=== PATIENT | female | born 1995 | race Caucasian/White ===

== ENCOUNTER 2016-04-08 18:47 | Outpatient (CLI) | payer OTHER ==
[2016-04-08 19:23] LABS: APPEARANCE,URINE CLEAR; BILIRUBIN,URINE NEGATIVE (NEGATIVE); GLUCOSE, URINE NEGATIVE (NEGATIVE); KETONES,URINE TRACE mg/dL (NEGATIVE); LEUKOCYTE ESTERASE,URINE NEGATIVE (NEGATIVE); NITRITE,URINE NEGATIVE (NEGATIVE); PROTEIN,URINE NEGATIVE (NEGATIVE); URINE SPECIFIC GRAVITY 1.021; UROBILINOGEN,URINE NEGATIVE mg/dL (<2.0)
[2016-04-08 19:43] LABS: URINE BARBITURATES SCREEN NEGATIVE; URINE METHADONE SCREEN NEGATIVE; URINE PHENCYCLIDINE SCREEN NEGATIVE
[2016-04-08 20:00] LABS: AMNISURE (ROM) NEGATIVE (NEGATIVE)
--- NOTE | 2016-04-08 20:00 | L&D Flow Sheet ---
LD Flowsheet Datetime Report Generated by CPN: 04/08/2016 20:00 Datetime: 04/08/2016 19:41 Membrane Comments: Fern collected and sent (Crystal [place], RN) Datetime: 04/08/2016 19:26 Assessment A Monitor Mode: External US (Crystal [place], RN) FHR Baseline Rate : 140 (Crystal Maura, RN) Variability: Moderate 6-25 bpm (Crystal Maura, RN) Accelerations: 15X15 (Crystal [place], RN) Decelerations: None (Crystal Maura, RN) Datetime: 04/08/2016 19:17 Vital Signs NBP Sys/Emmie/Mean (mmHg): 121 (QS system process) : 84 (QS system process) : 97 (QS system process) Pulse: 137 (QS system process) Communication LaborFlag: Antepartum (QS system process) Datetime: 04/08/2016 19:01 Pain Pain Scale: 4 (Crystal Maura, RN) Pain Presence: Intermittent (Crystal [place], RN) Pain Type: Ache (Crystal Maura, RN) Pain Location: Other (Annotations: Pt reports everywhere) (Crystal Maura, RN) Pain Goal: 2 (Crystal [place], RN) Pain Relief Measures: Comfort Measures (Crystal Maura, RN) Pain Coping: Talking Through Contractions (Crystal Maura, RN) Vaginal Exam Membrane Status: Pt reports that she took a bath 2 days ago and something smelly ran out of her like water. (Crystal Maura, RN) Vaginal Bleeding: Scant (Annotations: Pt reports bleeding yesterday) (Crystal Maura, RN) Maternal Assessment Level of Consciousness: Fully Conscious (Crystal Maura, RN) DTR's/Clonus: DTRs 2+; No Clonus (Crystal [place], RN) Headache: Generalized (Crystal Maura, RN) Breath Sounds, Left: Clear and Equal (Crystal Maura, RN) Breath Sounds, Right: Clear and Equal (Crystal Maura, RN) Nausea/Vomiting: Present (Crystal Maura, RN) RUQ Epigastric Pain: Denies (Crystal [place], RN) Teaching Instructional Method: Verbal; Patient Instructed; Family/Support Person Instructed; Verbalized Understanding (Shaniqua Lorenzo RN) Plan of Care: Plan of Care Discussed (Shaniqua Lorenzo RN) Unit Routine: [place] to Room; Call Vaz; Bed (Shaniqua Lorenzo RN) Communication LaborFlag: Antepartum (QS system process)
[2016-04-08] MEDS ORDERED: HYDROXYZINE PAMOATE 50 MG CAPSULE ONE (20:42)
[2016-04-08] MEDS ORDERED: HYDROXYZINE PAMOATE 50 MG CAPSULE PO ONE (20:44)
--- NOTE | 2016-04-09 04:45 | L&D General Admission ---
General Admit Datetime Report Generated by CPN: 04/09/2016 04:45 INFORMATION Para: 1 (04/08/2016 20:51:Crystal Maura, RN) Baby, Number in Womb: 1 (04/08/2016 20:51:Crystal [place], RN) CARE Height (in): 64 (04/08/2016 19:45:QS system process) DEMOGRAPHICS Marital Status: (04/08/2016 18:47:QS system process)
--- NOTE | 2016-04-09 04:45 | L&D Flow Sheet ---
LD Flowsheet Datetime Report Generated by CPN: 04/09/2016 04:45 Datetime: 04/08/2016 20:37 Medications Antiemetics/Antacids: Vistaril (mg) @ 50 (Crystal Maura, RN) Datetime: 04/08/2016 20:34 Vital Signs Stage of : OB Triage (Shaniqua Lorenzo RN) Strip Reviewed by: Gallo Lorenzo RN (Shaniqua Lorenzo RN) Communication Communication: RN Reviewed Strip; Provider Orders Received (Shaniqua Lorenzo RN) Provider Notified (Name): Nehemias (Shaniqua Lorenzo RN) Notification Reason: Status Update; Status; Labor Status; Membrane Status; Uterine Activity; Pain; Maternal Vital Sign Change (Shaniqua Lorenzo RN) Communication Comments: Provider orders received for 50 mg PO vistaril and PO hydration, Pt able to DC home and keep office apt. (Shaniqua Lorenzo RN) Datetime: 04/08/2016 20:19 Communication Comments: Encouraged pt to increase fluids (Crystal Maura, RN) Datetime: 04/08/2016 20:17 Fern: Negative (Crystal Maura, RN) Datetime: 04/08/2016 20:15 Communication Comments: Discussed with pt that her due date is in our system as 05/22/2016 and she is 33.5 not 36 weeks as she reports. pt verbalized understanding. (Crystal Stanfield, RN) Datetime: 04/08/2016 20:11 NBP Sys/Emmie/Mean (mmHg): 111 (QS system process) : 69 (QS system process) : 85 (QS system process) Pulse: 108 (QS system process) LaborFlag: OB Triage (QS system process) Datetime: 04/08/2016 20:05 Uterine Activity Monitor Mode: External; Palpation (Crystal [place], RN) Frequency (min): Irritability (Crystal Maura, RN) Resting Tone (Palpate): Relaxed (Crystal Maura, RN) Assessment A Monitor Mode: External US (Crystal [place], RN) FHR Baseline Rate : 130 (Crystal Maura, RN) Variability: Moderate 6-25 bpm (Crystal [place], RN) Accelerations: 15X15 (Crystal Maura, RN) Decelerations: None (Crystal Maura, RN) Patient Care I/O Interventions: Clear Liquids Given (Crystal Maura, RN) Datetime: 04/08/2016 19:41 Membrane Comments: Fern collected and sent (Crystal Stanfield, RN) Datetime: 04/08/2016 19:26 Assessment A Monitor Mode: External US (Crystal [place], RN) FHR Baseline Rate : 140 (Crystal Maura, RN) Variability: Moderate 6-25 bpm (Crystal Stanfield, RN) Accelerations: 15X15 (Crystal Stanfield, RN) Decelerations: None (Crystal Maura, RN) Datetime: 04/08/2016 19:17 Vital Signs Stage of : OB Triage (Crystal Maura, RN) NBP Sys/Emmie/Mean (mmHg): 121 (QS system process) : 84 (QS system process) : 97 (QS system process) Pulse: 137 (QS system process) LaborFlag: OB Triage (QS system process) Datetime: 04/08/2016 19:01 Pain Pain Scale: 4 (Crystal Stanfield, RN) Pain Presence: Intermittent (Crystal Maura, RN) Pain Type: Ache (Crystal Maura, RN) Pain Location: Other (Annotations: Pt reports everywhere) (Crystal Maura, RN) Pain Goal: 2 (Crystal Stanfield, RN) Pain Relief Measures: Comfort Measures (Crystal Maura, RN) Pain Coping: Talking Through Contractions (Crystal Maura, RN) Vaginal Exam Membrane Status: Pt reports that she took a bath 2 days ago and something smelly ran out of her like water. (Crystal Stanfield, RN) Vaginal Bleeding: Scant (Annotations: Pt reports bleeding yesterday) (Crystal Maura, RN) Maternal Assessment Level of Consciousness: Fully Conscious (Crystal [place], RN) DTR's/Clonus: DTRs 2+; No Clonus (Crystal Maura, RN) Headache: Generalized (Crystal Maura, RN) Breath Sounds, Left: Clear and Equal (Crystal Stanfield, RN) Breath Sounds, Right: Clear and Equal (Crystal Maura, RN) Nausea/Vomiting: Present (Crystal Maura, RN) RUQ Epigastric Pain: Denies (Crystal Stanfield, RN) Teaching Instructional Method: Verbal; Patient Instructed; Family/Support Person Instructed; Verbalized Understanding (Shaniqua Lorenzo RN) Plan of Care: Plan of Care Discussed (Shaniqua Lorenzo RN) Unit Routine: [place] to Room; Call Vaz; Bed (Shaniqua Lorenzo RN) LaborFlag: Antepartum (QS system process)
--- NOTE | 2016-04-09 04:45 | Antepartum Discharge Summary ---
Antepartum DC Datetime Report Generated by CPN: 04/09/2016 04:45 DIET/ACTIVITY/RESTRICTIONS Diet: Regular (04/08/2016 20:51:Crystal Maura, RN) Activity: Normal Activity (04/08/2016 20:51:Crystal Maura, RN) TEACHING/INSTRUCTIONS/REFERRALS Instructions Given To: Toño García (04/08/2016 20:51:Crystal Maura, RN) Instructions Understood: Patient Verbalized Understanding; Support Person Verbalized Understanding (04/08/2016 20:51:Shaniqua Lorenzo RN) Referrals: None (04/08/2016 20:51:Shaniqua Lorenzo RN) Educational Materials- Other: Dehydration (04/08/2016 20:51:Shaniqua Lorenzo RN) DISCHARGE INFORMATION Discharged AMA: No (04/08/2016 20:51:Shaniqua Lorenzo RN) Discharge Date/Time: 04/08/2016 20:47 (04/08/2016 20:51:Shaniqua Lorenzo RN) Discharged To: Home (04/08/2016 20:51:Shaniqua Lorenzo RN) Discharge Provider Name: Nehemias (04/08/2016 20:51:Shaniqua Lorenzo RN) Accompanied By: Family (04/08/2016 20:51:Shaniqua Lorenzo RN) Discharge Method: Ambulatory (04/08/2016 20:51:Shaniqua Lorenzo RN) Condition: Stable (04/08/2016 20:51:Shaniqua Lorenzo RN) FOLLOW UP INFORMATION Follow Up With: [facility] (04/08/2016 20:51:Shaniqua Lorenzo RN) Follow Up On: As Scheduled (04/08/2016 20:51:Shaniqua Lorenzo RN)
--- NOTE | 2016-04-09 04:45 | L&D Discharge Summary ---
OB Discharge Summary Datetime Report Generated by CPN: 04/09/2016 04:45 DISCHARGE DIAGNOSIS Diagnosis/Symptoms: False Labor Diagnoses/Symptoms Other: Pt given instructions to hydrate and rest, follow up with office as scheduled. Treatment/Procedures Other: 50 mg vistaril PO Gestation: 33.5 Number of Babies in Womb: 1 Parity: 1 DIET/ACTIVITY/RESTRICTIONS Diet: Regular Activity: Normal Activity TEACHING/INSTRUCTIONS/REFERRALS Instructions Given To: Toño García Instructions Understood: Patient Verbalized Understanding; Support Person Verbalized Understanding Referrals: None Educational Materials- Other: Dehydration DISCHARGE INFORMATION Discharged AMA: No Discharge Date/Time: 04/08/2016 20:47 Discharged To: Home Discharge Provider Name: Nehemias Accompanied By: Family Discharge Method: Ambulatory Condition: Stable FOLLOW UP INFORMATION Follow Up With: [facility] Follow Up On: As Scheduled Follow Up Phone Number: Zlio - Comments: Pt came in c/o bloody show, dizziness and increase HR. Pt placed on monitor, baby reactive, x1 contraction seen. UA obtained, negative. SVE performed by Dr Hanna at b/s -/. Pt d/c to home in stable condition, instructed to take off work the rest of the week. D/c instructions given on preeclampsia and labor. Pt/mother verbalized understanding and demonstrated understanding.
--- NOTE | 2016-04-09 04:45 | L&D Current Admission ---
Current Admit Datetime Report Generated by CPN: 04/09/2016 04:45 ADMISSION INFORMATION Chief Complaint: Other (Annotations: General complaints of headache, dizziness, contractions ) (04/08/2016 19:01:Shaniqua Lorenzo RN)
--- NOTE | 2016-04-09 04:45 | L&D Admission Assessment ---
LD ADM ASMT Datetime Report Generated by CPN: 04/09/2016 04:45 PATIENT ASSESSMENT Assessment Type: Triage (04/08/2016 19:01:Crystal [place]ona, RN) WEIGHT Weight (lb): 191 (04/08/2016 19:45:QS system process) Weight (kg): 86.8 (04/08/2016 19:45:QS system process) BMI: 32.8 (04/08/2016 19:45:QS system process) PAIN Pain Scale: 4 (04/08/2016 19:01:Crystal [place]ona, RN) Pain Presence: Intermittent (04/08/2016 19:01:Crystal [place]ona, RN) Pain Type: Ache (04/08/2016 19:01:Crystal Maura, RN) Pain Location: Other (Annotations: Pt reports everywhere) (04/08/2016 19:01:Crystal [place], RN) Pain Goal: 2 (04/08/2016 19:01:Crystal [place], RN) Pain Related to Contraction: Unsure (04/08/2016 19:01:Crystal Verona, RN) CONTRACTIONS Frequency (min): Irritability (04/08/2016 20:05:Crystal Maura, RN) Resting Tone [place]: Relaxed (04/08/2016 20:05:Crystal Maura, RN) VAGINAL EXAM Membranes Status: Pt reports that she took a bath 2 days ago and something smelly ran out of her like water. (04/08/2016 19:01:Crystal Maura, RN) Fern: Negative (04/08/2016 20:17:Crystal Verona, RN) NEURO Level of Consciousness: Fully Conscious (04/08/2016 19:01:Crystal [place]ona, RN) DTR's/Clonus: DTRs 2+; No Clonus (04/08/2016 19:01:Crystal [place]ona, RN) Headache: Generalized (04/08/2016 19:01:Crystal [place]ona, RN) Dizziness: No (04/08/2016 19:01:Crystal [place]ona, RN) Blurred Vision: No (04/08/2016 19:01:Crystal Maura, RN) Extremity Numbness/Tingling : None (04/08/2016 19:01:Crystal Verona, RN) Extremity Movement: Full Range of Motion (04/08/2016 19:01:Crystal Verona, RN) CARDIOVASCULAR Heart Rhythm: Regular (04/08/2016 19:01:Shaniqua Lorenzo RN) Nailbeds: [place] Switch (04/08/2016 19:01:Shnaiqua Lorenzo RN) Capillary Refill: Less than 3 Seconds (04/08/2016 19:01:Shaniqua Lorenzo RN) Lower Extremities Edema: None (04/08/2016 19:01:Shaniqua Lorenzo RN) Lower Extremities Edema Degree: None (04/08/2016 19:01:Shaniqua Lorenzo RN) Upper Extremities Edema: None (04/08/2016 19:01:Shaniqua Lorenzo RN) Upper Extremities Edema Degree: None (04/08/2016 19:01:Shaniqua Lorenzo RN) Facial Edema: None (04/08/2016 19:01:Shaniqua Lorenzo RN) Josemanuel's Sign Left Leg: Negative (04/08/2016 19:01:Shaniqua Lorenzo RN) Josemanuel's Sign Right Leg: Negative (04/08/2016 19:01:Shaniqua Lorenzo RN) DVT RISK ASSESSMENT DVT Risk Age: Age less than 41 years (04/08/2016 19:01:Shaniqua Lorenzo RN) DVT Risk BMI: BMI<31 (04/08/2016 19:01:Shaniqua Lorenzo RN) DVT Risk Surgery: Minor Surgery Planned (04/08/2016 19:01:Shaniqua Lorenzo RN) DVT Risk Other: None Applicable (04/08/2016 19:01:Shaniqua Lorenzo RN) DVT Risk Total: 1 (04/08/2016 19:01:QS system process) DVT Risk Text: Low Risk (<10%) No specific measures, early ambulation (04/08/2016 19:01:QS system process) RESPIRATORY Respiratory Effort: Unlabored; Regular Rhythm; Equal Expansion (04/08/2016 19:01:Shaniqua Lorenzo RN) Breath Sounds, Left: Clear and Equal (04/08/2016 19:01:Shaniqua Lorenzo RN) Breath Sounds, Right: Clear and Equal (04/08/2016 19:01:Shaniqua Ellisergjason RN) Cough Productivity: None (04/08/2016 19:01:Shaniqua Ellisergjason RN) GASTROINTESTINAL Nausea/Vomiting: Present (04/08/2016 19:01:Shaniqua Lorenzo RN) Bowel Sounds: Normoactive (04/08/2016 19:01:Shaniqua Lorenzo RN) RUQ Epigastric Pain: Denies (04/08/2016 19:01:Shaniqua Lorenzo RN) Response to Antacids: Pain Relieved (04/08/2016 19:01:Shaniqua Lorenzo RN) Bowel Patterns: Soft, Formed Stool (04/08/2016 19:01:Shaniqua Lorenzo RN) Hemorrhoids: None (04/08/2016 19:01:Shaniqua Lorenzo RN) Diet Type: Regular diet (04/08/2016 19:01:Shaniqua Lorenzo RN) Last Meal: 04/08/2016 16:30 (04/08/2016 19:01:Shaniqua Lorenzo RN) GENITOURINARY Bladder: Nondistended (04/08/2016 19:01:Shaniqua Lorenzo RN) Frequency of Urination: No (04/08/2016 19:01:Shaniqua Lroenzo RN) Urination Burning: No (04/08/2016 19:01:Shaniqua Lorenzo RN) CVA Tenderness: No (04/08/2016 19:01:Shaniqua Lorenzo RN) Vaginal Discharge Amount: None (04/08/2016 19:01:Shaniqua Lorenzo RN) Vaginal Discharge Color: N/A (04/08/2016 19:01:Shaniqua Lorenzo RN) Vaginal Discharge Character: None (04/08/2016 19:01:Shaniqua Lorenzo RN) INTEGUMENTARY Skin Color: Normal for Race (04/08/2016 19:01:Shaniqua Lorenzo RN) Skin Temperature: Warm (04/08/2016 19:01:Shaniqua Lorenzo RN) Skin Moisture: Dry (04/08/2016 19:01:Shaniqua Lorenzo RN) Body Piercings/Tattoos: Nose ring, tattoos (04/08/2016 19:01:Shaniqua Lorenzo RN) NOEMÍ SKIN ASSESSMENT Noemí Scale Sensory Perception: No Impairment- Responds to verbal commands. Has no sensory deficit which would limit ability to feel or voice pain or discomfort (04/08/2016 19:01:Shaniqua Lorenzo RN) Noemí Scale Moisture: Rarely Moist- Skin is usually dry. Linen only requires changing at routine intervals (04/08/2016 19:01:Shaniqua Lorenzo RN) Noemí Scale Activity: Walks Frequently- Walks outside the room at least twice a day and inside room at least every 2 hours during the day. (04/08/2016 19:01:Shaniqua Lorenzo RN) Noemí Scale Mobility: No Limitations- Makes major and frequent changes in position without assistance (04/08/2016 19:01:Shaniqua Lorenzo RN) Noemí Scale Nutrition: Excellent- Eats most of every meal. Never refuses a meal. Usually eats a total of 4 or more servings of meat and dairy products. Occasionally eats between meals. Does not require supplementation (04/08/2016 19:01:Shaniqua Lorenzo RN) Noemí Scale Friction and Shear: No Apparent Problem- Moves in bed and in chair independently and has sufficient muscle strength to lift up completely during move. Maintains good position in bed or chair at all times (04/08/2016 19:01:Shaniqua Lorenzo RN) Noemí Scale Total: 23 (04/08/2016 19:01:QS system process) Noemí Scale Risk: No Risk of Pressure Ulcer Noted at this Time (04/08/2016 19:01:QS system process) SUPPORT Family Support: Significant Other supportive, at bedside frequently; Family supportive (04/08/2016 19:01:Shaniqua Lorenzo RN) Emotional State: Anxious (04/08/2016 19:01:Shaniqua Lorenzo RN) SAFETY Call Vaz Within Reach: Yes (04/08/2016 19:01:Shaniqua Lorenzo RN) Side Rails Up: Yes (04/08/2016 19:01:Shaniqua Lorenzo RN) Bed Wheels Locked: Yes (04/08/2016 19:01:Shaniqua Lorenzo RN) Arm Bands Present: Yes (04/08/2016 19:01:Shaniqua Lorenzo RN) FALL SCREEN Fall Risk History of Falling: (0) No (04/08/2016 19:01:Shaniqua Lorenzo RN) Fall Risk Secondary Diagnosis: (0) No (04/08/2016 19:01:Shaniqua Lorenzo RN) Fall Risk Ambulatory Aid: (0) None/Bedrest/Wheelchair/Nurse Assist (04/08/2016 19:01:Shaniqua Lorenzo RN) Fall Risk IV Therapy: (0) No (04/08/2016 19:01:Shaniqua Lorenzo RN) Fall Risk Gait: (0) Normal/Bedrest/Immobile (04/08/2016 19:01:Shaniqua Lorenzo RN) Fall Risk Mental Status: (0) Oriented to Own Ability (04/08/2016 19:01:Shaniqua Lorenzo RN) Fall Risk Score: 0 (04/08/2016 19:01:QS system process) Fall Risk Score Definition: No Risk: No action required (04/08/2016 19:01:QS system process) RECENT TRAVEL/INFECTIOUS DISEASE Recent Exp Communicable Disease: No (04/08/2016 19:01:Shaniqua Lorenzo RN) Cough or Fever: No (04/08/2016 19:01:Shaniqua Lorenzo RN) Foreign Travel Past 10 Days: No (04/08/2016 19:01:Shaniqua Lorenzo RN) Open Wounds or Sores: No (04/08/2016 19:01:Shaniqua Lorenzo RN) Prior Antibiotic Resistance Tx: No (04/08/2016 19:01:Shaniqua Lorenzo RN) Cultures Obtained: Not Applicable (04/08/2016 19:01:Shaniqua Lorenzo RN) Isolation Initiated: No (04/08/2016 19:01:Shaniqua Lorenzo RN) Pt/Family Education: Not Applicable (04/08/2016 19:01:Shaniqua Lorenzo RN) BABY A FHR Baseline Rate (bpm) Baby A: 130 (04/08/2016 20:05:Shaniqua Lorenzo RN) FHR Baseline Rate (bpm) Baby A: 140 (04/08/2016 19:26:Shaniqua Lorenzo RN) Variability Baby A: Moderate 6-25 bpm (04/08/2016 20:05:Shaniqua Lorenzo RN) Variability Baby A: Moderate 6-25 bpm (04/08/2016 19:26:Shaniqua Lorenzo RN) Accelerations Baby A: 15X15 (04/08/2016 20:05:Shaniqua Lorenzo RN) Accelerations Baby A: 15X15 (04/08/2016 19:26:Shaniqua Lorenzo RN) Decelerations Baby A: None (04/08/2016 20:05:Shaniqua Lorenzo RN) Decelerations Baby A: None (04/08/2016 19:26:Shaniqua Lorenzo RN)
== END 2016-04-08 20:47 | disposition home or self-care (01) ==
LOC: LC 18:47
PROVIDERS: ATTEND Obstetrics & Gynecology
PROC: 4A1HXCZ Monitoring of Products of Conception, Cardiac Rate, External Approach (ICD-10-PCS; principal; 2016-04-08)
DX: O47.03 False labor before 37 completed weeks of gestation, third trimester (principal); Z3A.33 33 weeks gestation of pregnancy
CPT/HCPCS: 59025; 84112; 81005; Q0114; G0479; 80307

== ENCOUNTER 2016-04-16 13:53 | Outpatient (CLI) | payer OTHER ==
--- NOTE | 2016-04-16 14:33 | L&D Progress Notes ---
PROGRESS NOTES Datetime Report Generated by CPN: 04/16/2016 14:33 PROGRESS NOTE Vital Signs : Reviewed; Within Normal Limits Comment: 20 yo sent from office for PIH workup previous - preeclampsia pt taking propanalol unsure of dosage for SVT with negative cardiac workups taking aspirin 81 mg po qd lungs ctab maternal tachycardia- 140s random blood sugar - 100 start ivf - D5LR 500 cc bolus PIH labs now push po hydration and meal stat EKG at bedside FETUS A FHR - Baseline: 155 Monitoring: External US : 34.6 SIGNATURE SIGNATURE: [id number] SIGNATURE: [id number] Assignment: Terrie Hanna MD Signature: with User ID: Mikeyel : with User ID: [email or web address]
[2016-04-16 14:42] LABS: APPEARANCE,URINE CLOUDY; BILIRUBIN,URINE NEGATIVE (NEGATIVE); GLUCOSE, URINE 50 mg/dL (NEGATIVE); KETONES,URINE TRACE mg/dL (NEGATIVE); LEUKOCYTE ESTERASE,URINE MODERATE (NEGATIVE); NITRITE,URINE NEGATIVE (NEGATIVE); PROTEIN,URINE NEGATIVE (NEGATIVE); URINE SPECIFIC GRAVITY 1.018; UROBILINOGEN,URINE NEGATIVE mg/dL (<2.0)
--- NOTE | 2016-04-16 15:00 | Non Stress Test Report ---
Non Stress Test Datetime Report Generated by CPN: 04/16/2016 14:59 DEMOGRAPHIC EGA NST: 34.6 EGA NST: 34.6 INDICATION Indication for Study: Ordered by Provider Indication for Study: Ordered by Provider Indication for Study (NST) Other: pih work up MONITORING Monitor Explained: Monitor Explained; Test Explained; Patient Verbalized Understanding Monitor Explained: Monitor Explained; Test Explained; Patient Verbalized Understanding Time on Monitor: 04/16/2016 14:30 Time on Monitor: 04/16/2016 14:13 Time off Monitor: 04/16/2016 14:56 NST Duration: 26 NST INTERVENTIONS NST Interventions: IV Fluids NST Interventions: PO Hydration; Reposition Patient Physician Notified NST: A Emmel CNM BABY A Movement : Present Movement : Present Contraction Frequency : irregular FHR Baseline : 150 Accelerations : 15X15 Accelerations : 15X15 Decelerations : None Decelerations : None Variability : Moderate 6-25bpm Variability : Moderate 6-25bpm NST Review: Meets Criteria for Reactive NST NST Review: Meets Criteria for Reactive NST NST Review and Verified By : MICHAEL Topete Results: Reactive NST Results: Reactive NST REPORT Report Trigger: Send Report
[2016-04-16 15:04] LABS: ABSOLUTE EOSINOPHILS # (AUTO) 0.2 10^3/uL (0.0-0.6); ABSOLUTE LYMPHOCYTES (AUTO) 1.7 10^3/uL (0.5-4.7); ABSOLUTE MONOCYTES (AUTO) 1.4 10^3/uL (0.1-1.4); ABSOLUTE NEUT (AUTO) 11.4 10^3/uL (1.7-8.2); BASOPHILS % (AUTO) 0.1 % (0-2); EOSINOPHILS % (AUTO) 1.1 % (0-6); HEMATOCRIT 31.3 % (36.0-47.0); HEMOGLOBIN 10.5 g/dL (12.0-15.5); HGB HCT DIFFERENCE 0.2; LYMPHOCYTES % (AUTO) 11.3 % (13-45); MEAN CORPUSCULAR HGB CONC 33.5 g/dL (32.0-36.0); MEAN CORPUSCULAR VOLUME 81 fl (80-97); MONOCYTES % (AUTO) 9.3 % (3-13); RED BLOOD COUNT 3.88 10^6/uL (3.72-5.28); SEGMENTED NEUTROPHILS % (AUTO) 78.2 % (42-78); WHITE BLOOD COUNT 14.6 10^3/uL (4.0-10.5)
[2016-04-16 15:20] LABS: ALANINE AMINOTRANSFERASE 12 U/L (9-52); ALBUMIN 3.4 g/dL (3.5-5.0); ALKALINE PHOSPHATASE 139 U/L (38-126); ANION GAP 11 (5-19); ASPARTATE AMINO TRANSFERASE 17 U/L (14-36); BILIRUBIN,TOTAL 0.4 mg/dL (0.2-1.3); BLOOD UREA NITROGEN 6 mg/dL (7-20); CALCIUM 9.4 mg/dL (8.4-10.2); CARBON DIOXIDE 20 mmol/L (22-30); CHLORIDE 107 mmol/L (98-107); CREATININE RESULT 0.42 mg/dL (0.52-1.25); GLUCOSE 85 mg/dL (75-110); LDH 371 U/L (313-618); POTASSIUM 4.2 mmol/L (3.6-5.0); SODIUM 137.5 mmol/L (137-145); TOTAL PROTEIN 6.1 g/dL (6.3-8.2); URIC ACID 3.8 mg/dL (2.5-6.2)
[2016-04-16 15:21] LABS: URINE BARBITURATES SCREEN NEGATIVE; URINE METHADONE SCREEN NEGATIVE; URINE PHENCYCLIDINE SCREEN NEGATIVE
[2016-04-16] MEDS ORDERED: DEXTROSE 5%-LACTATED RINGERS 1,000 ML IV ONE (15:30)
--- NOTE | 2016-04-16 17:00 | EKG REPORT ---
SEVERITY:- BORDERLINE ECG - SINUS TACHYCARDIA BORDERLINE T ABNORMALITIES, INFERIOR LEADS : Confirmed by: Nohemi Amos MD 16-Apr-2016 16:58:53
--- NOTE | 2016-04-22 15:28 | Non Stress Test Report ---
Non Stress Test Datetime Report Generated by [facility]: 04/22/2016 15:28 Indication for Study: Ordered by Provider Indication for Study (NST) Other: pih work up Monitor Explained: Monitor Explained; Test Explained; Patient Verbalized Understanding Time on Monitor: 04/16/2016 14:13 NST Interventions: PO Hydration; Reposition Patient Movement : Present Accelerations : 15X15 Decelerations : None Variability : Moderate 6-25bpm NST Review: Meets Criteria for Reactive NST NST Results: Reactive
--- NOTE | 2016-04-22 15:29 | Non Stress Test Report ---
Non Stress Test Datetime Report Generated by N: 04/22/2016 15:29 Indication for Study: Ordered by Provider Monitor Explained: Monitor Explained; Test Explained; Patient Verbalized Understanding Time on Monitor: 04/16/2016 14:30 Time off Monitor: 04/16/2016 14:56 NST Interventions: IV Fluids Physician Notified NST: Joseph Villagomez CNM Movement : Present Contraction Frequency : irregular FHR Baseline : 150 Accelerations : 15X15 Decelerations : None Variability : Moderate 6-25bpm NST Review: Meets Criteria for Reactive NST NST Review and Verified By : Loreta Del Cid RN NST Results: Reactive Report Trigger: Send Report
--- NOTE | 2016-04-22 15:36 | L&D Current Admission ---
Current Admit Datetime Report Generated by Manish: 04/22/2016 15:36 Chief Complaint: Other (Annotations: Pt sent over from [facility] for Pre-E workup for blood work, NST, and serial BPs. ) (04/16/2016 14:15:Thor Lockett RN)
--- NOTE | 2016-04-22 15:36 | Antepartum Discharge Summary ---
Antepartum DC Datetime Report Generated by CPN: 04/22/2016 15:36 Diet: Regular (04/16/2016 15:40:Thor Lockett RN) Activity: Normal Activity (04/16/2016 15:40:Thor Lockett RN) Activity Restrictions: No Exercising; Minimize Stair Climbing (04/16/2016 15:40:Thor Lockett RN) Instructions Given To: Pt (04/16/2016 15:40:Thor Lockett RN) Instructions Understood: Patient Verbalized Understanding; Support Person Verbalized Understanding (04/16/2016 15:40:Thor Lockett RN) Referrals: None (04/16/2016 15:40:Thor Lockett RN) Educational Materials- Other: Kick Counts Pre-Eclampsia / Gest HTN NST (04/16/2016 15:40:Thor Lockett RN) Discharged AMA: No (04/16/2016 15:40:Thor Lockett RN) Discharge Date/Time: 04/16/2016 15:41 (04/16/2016 15:40:Thor Lockett RN) Discharged To: Home (04/16/2016 15:40:Thor Lockett RN) Discharge Provider Name: Dahlia (04/16/2016 15:40:Thor Lockett RN) Accompanied By: Family (04/16/2016 15:40:Thor Lockett RN) Discharge Method: Ambulatory (04/16/2016 15:40:Thor Lockett RN) Condition: Stable (04/16/2016 15:40:Thor Lockett RN) Follow Up With: [facility] (04/16/2016 15:40:Thor Lockett RN) Follow Up On: As Scheduled (04/16/2016 15:40:Thor Lockett RN) Follow Up Phone Number: Health Department - (04/16/2016 15:40:Thor Lockett RN) Comments: Pt agrees with discharge, no complaints, no distress noted. Denies pain at discharge, ambulates without family, family to drive pt home. Understands s/s to report, when to return to hospital for evaluation, to keep scheduled appointments. (04/16/2016 15:40:Thor Lockett RN) Contractions: Contractions or cramps become more frequent than 8 in one hour or 4 in 20 minutes; Regular painful contractions every 5 minutes or less for one hour. Time your contractions from the beginning of one to the beginning of the next (04/16/2016 15:40:Thor Lockett RN) Pressure: Pressure in your vagina or lower abdomen that may feel like the baby is pushing down (04/16/2016 15:40:Thor Lockett RN) Period Like Cramps: Period-like cramps or low dull backache that may come and go (04/16/2016 15:40:Thor Lockett RN) Cramps/Diarrhea: Abdominal cramps that may be accompanied by diarrhea (04/16/2016 15:40:Thor Lockett RN) Gush of Fluid/Blood: Gush of fluid or blood from your vagina (it is normal to have spotting after vaginal exam or intercourse) (04/16/2016 15:40:Thor Lockett RN) Vaginal Discharge: Change in the type or amount of vaginal discharge (04/16/2016 15:40:Thor Lockett RN) Decreased Movement: Your baby is not moving as much as usual- 4 movements in 1 hour after drinking and resting on side (04/16/2016 15:40:Thor Lockett RN) Temperature: Temperature greater than 100.0(F) orally (04/16/2016 15:40:Thor Lockett RN) Hypertension Signs/Symptoms: Severe headache which is not relieved 30 minutes after taking Tylenol(Acetaminophen); Blurry vision or spots before your eyes; Severe heartburn or pain on the upper right side of your abdomen that is not relieved by an antacid; Increased swelling in your face, hands or feet (04/16/2016 15:40:Thor Lockett RN) Urinary Output: Decreased urinary output or dark colored urine (04/16/2016 15:40:Thor Lockett RN) N/V Marlette/Crackers: Keep dry toast/crackers with you to [facility] on (04/16/2016 15:40:Thor Lockett RN) N/V Frequent Meals: Eat small frequent meals (04/16/2016 15:40:Thor Lockett RN) N/V Empty Stomach: Try to keep something in your stomach (don't let your stomach get empty) (04/16/2016 15:40:Thor Lockett RN) N/V Time Getting Up: Take your time getting up (04/16/2016 15:40:Thor Lockett RN) N/V Avoid Smells: Avoid smells that make you feel sick (04/16/2016 15:40:Thor Lockett RN) Travel Seatbelts: Wear seatbelts or safety/lap belts (04/16/2016 15:40:Thor Lockett RN) Travel Walk Frequently: Walk frequently, every 1-2 hours (04/16/2016 15:40:Thor Lockett RN) Travel Comfort Clothes: Wear clothing that does not constrict and comfortable shoes (04/16/2016 15:40:Thor Lockett RN) Travel Light Snack: Keep a light snack (e.g. dry crackers) with you at all times to prevent nausea (04/16/2016 15:40:Thor Lockett RN) Travel Hydration: Drink plenty of water, low sodium and noncaffeinated drinks (04/16/2016 15:40:Thor Lockett RN) Travel Medications: DO NOT take any medication that is not approved by your physician first (04/16/2016 15:40:Thor Lockett RN) Travel PN Records: Always keep a copy of your medical record with you just in case (04/16/2016 15:40:Thor Lockett RN) Edema Avoid Standing: Avoid standing for long periods, keep legs up when you can (04/16/2016 15:40:Thor Lockett RN) Edema Rest on Side: When resting, lie on your side (left is best) (04/16/2016 15:40:Thor Lockett RN) Edema Limit Sodium: Limit the amount of salty foods you eat (04/16/2016 15:40:Thor Lockett RN) Edema Support Hose: Try to wear support hose as much as possible (04/16/2016 15:40:Thor Lockett RN) Exercise Overheating: Avoid situations that would cause you to become overheated (04/16/2016 15:40:Thor Lockett RN) Exercise Weather: Exercise outdoors only if the weather is reasonable and not too hot (04/16/2016 15:40:Thor Lockett RN) Exercise Exertion: Do not over exert yourself when you exercise (04/16/2016 15:40:Thor Lockett RN) Exercise Hydration: Drink plenty of fluids, especially water (04/16/2016 15:40:Thor Lockett RN) Exercise Support: Wear good support hose, bra and shoes when exercising (04/16/2016 15:40:Thor Lockett RN) Varicose Veins Instructions: Do not stand for long periods of time (04/16/2016 15:40:Thor Lockett RN) Varicose Veins Elevate Sit: Try to keep your legs elevated when you are sitting (04/16/2016 15:40:Thor Lockett RN) Varicose Veins Elevate Lying: When lying down, keep your legs elevated (04/16/2016 15:40:Thor Lockett RN) Varicise Veins Non Binding: When wearing stockings or socks, make sure they are not too tight and bind your legs (04/16/2016 15:40:Thor Lockett RN) Varicose Veins Support: Wear support hose/stockings at all times (04/16/2016 15:40:Thor Lockett RN) Varicose Veins Periodic Move: If you have a job where you sit a lot, get up periodically and walk around (04/16/2016 15:40:Thor Lockett RN)
--- NOTE | 2016-04-22 15:37 | L&D Flow Sheet ---
LD Flowsheet Datetime Report Generated by CPN: 04/22/2016 15:37 Datetime: 04/16/2016 15:32 Respirations: 20 (Thor Lockett RN) Monitor Mode: External; Palpation (Thor Lockett, RN) Frequency (min): x1 (Thor Lockett, RN) Pattern: Normal: <= 5 Contractions in 10 Minutes (Thor Lockett, RN) Resting Tone (Palpate): Relaxed (Thor Lockett, RN) Monitor Mode: External US (Thor Lockett, RN) FHR Baseline Rate : 150 (Thor Lockett, RN) FHR Baseline Changes: No Baseline Change (Thor Lockett, RN) Variability: Moderate 6-25 bpm (Thor Lockett, RN) Accelerations: 15X15 (Thor Lockett, RN) Decelerations: None (Thor Lockett, RN) Pain Scale: 1 (Thor Locektt RN) Pain Assessment Comments: Headache (Thor Lockett, RN) Level of Consciousness: Fully Conscious (Thor Lockett RN) DTR's/Clonus: DTRs 2+; No Clonus (Thor Lockett RN) Headache: Frontal (Thor Lockett RN) Breath Sounds, Left: Clear and Equal (Thor Lockett RN) Breath Sounds, Right: Clear and Equal (Thor Lockett RN) Nausea/Vomiting: Denies (Thor Lockett RN) RUQ Epigastric Pain: Denies (Thor Lockett RN) Patient Care Comments: removed from monitors for discharge (Thor Lockett RN) Patient Care Comments: IV discontinued. (Thor Lockett RN) Communication: RN at Bedside; RN Reviewed Strip (Thor Lockett RN) Communication Comments: Discharge orders obtained from A [facility] CN; provider reviewed all labs, vs, efm strip, EKG. (Thor Lockett RN) Datetime: 04/16/2016 15:26 NBP Sys/Emmie/Mean (mmHg): 109 (QS system process) : 71 (QS system process) : 85 (QS system process) Pulse: 107 (QS system process) Datetime: 04/16/2016 15:25 Pulse: 107 (QS system process) SpO2 (%): 98 (QS system process) Datetime: 04/16/2016 15:20 Pulse: 119 (QS system process) SpO2 (%): 97 (QS system process) Datetime: 04/16/2016 15:15 Pulse: 115 (QS system process) SpO2 (%): 97 (QS system process) Datetime: 04/16/2016 15:14 Pulse: 112 (QS system process) SpO2 (%): 88 (QS system process) Datetime: 04/16/2016 15:11 NBP Sys/Emmie/Mean (mmHg): 111 (QS system process) : 75 (QS system process) : 88 (QS system process) Pulse: 114 (QS system process) Datetime: 04/16/2016 15:10 Pulse: 113 (QS system process) SpO2 (%): 97 (QS system process) Datetime: 04/16/2016 15:05 Pulse: 121 (QS system process) SpO2 (%): 95 (QS system process) Datetime: 04/16/2016 15:00 Pulse: 119 (QS system process) SpO2 (%): 96 (QS system process) Datetime: 04/16/2016 14:56 NBP Sys/Emmie/Mean (mmHg): 115 (QS system process) : 74 (QS system process) : 88 (QS system process) Pulse: 121 (QS system process) Datetime: 04/16/2016 14:55 Pulse: 121 (QS system process) SpO2 (%): 96 (QS system process) Datetime: 04/16/2016 14:50 Pulse: 120 (QS system process) SpO2 (%): 96 (QS system process) Datetime: 04/16/2016 14:45 Pulse: 123 (QS system process) SpO2 (%): 96 (QS system process) Monitor Mode: External; Palpation (Thor Lockett RN) Resting Tone (Palpate): Relaxed (Thor Lockett RN) Contraction Comments: uterine irritability noted (Thor Lockett RN) Monitor Mode: External US (Thor Lockett RN) FHR Baseline Rate : 150 (Thor Lockett RN) Variability: Moderate 6-25 bpm (Thor Lockett RN) Accelerations: 15X15 (Thor Lockett RN) Decelerations: None (Thor Lockett RN) Communication: RN at Bedside; RN Reviewed Strip (Thor Cathryn, RN) Datetime: 04/16/2016 14:42 NBP Sys/Emmie/Mean (mmHg): 121 (QS system process) : 77 (QS system process) : 93 (QS system process) Pulse: 118 (QS system process) Datetime: 04/16/2016 14:40 Pulse: 117 (QS system process) SpO2 (%): 97 (QS system process) Datetime: 04/16/2016 14:35 Pulse: 128 (QS system process) SpO2 (%): 94 (QS system process) Datetime: 04/16/2016 14:31 IV/Blood Work: IV Started; IV Bolus Started; Labs Drawn with IV Start; Labs Drawn (Thor Lockett RN) Patient Care Comments: 18G L Forearm, good blood return, site wnl, pt tolerated well. (Thor Lockett, RN) Datetime: 04/16/2016 14:29 Communication Comments: Orders received for IV; D5LR x1L bolus now. (Thor Saxenat, RN) Datetime: 04/16/2016 14:26 NBP Sys/Emmie/Mean (mmHg): 120 (QS system process) : 76 (QS system process) : 91 (QS system process) Pulse: 139 (QS system process) Datetime: 04/16/2016 14:25 Pulse: 130 (QS system process) Pulse: 138 (QS system process) SpO2 (%): 96 (QS system process) SpO2 (%): 94 (QS system process) Datetime: 04/16/2016 14:24 Temperature (F): 98.7 (Thor Cathryn, RN) Datetime: 04/16/2016 14:21 Bedside Blood Glucose: 100 (Annotations: MD Notified) (QS system process) Patient Care Comments: Order for Random blood sugar; Blood Glucose 100. (Thor Molinaeet, RN) Datetime: 04/16/2016 14:20 Pulse: 141 (QS system process) SpO2 (%): 96 (QS system process) Patient Care Comments: Stat electromedical equipment technician at bedside. (Thor Lockett, RN) Datetime: 04/16/2016 14:18 Communication Comments: A Emmel CNM at bedside to assess pt (Thor Saxenat, RN) Datetime: 04/16/2016 14:15 Pulse: 147 (QS system process) SpO2 (%): 95 (QS system process) Pain Scale: 3 (Thor Lockett RN) Pain Presence: Constant (Thor Lockett RN) Pain Type: Ache (Thor Lockett RN) Pain Location: Head (Thor Lockett RN) Pain Relief Measures: Comfort Measures (Thor Lockett RN) Vaginal Bleeding: None (Thor Lockett RN) Level of Consciousness: Fully Conscious (Thor Lockett RN) DTR's/Clonus: DTRs 2+; No Clonus (Thor Lockett RN) Headache: Frontal (Thor Lockett RN) Breath Sounds, Left: Clear and Equal (Thor Lockett RN) Breath Sounds, Right: Clear and Equal (Thor Lockett RN) Nausea/Vomiting: Hx of Nausea/Vomiting (Thor Lockett RN) RUQ Epigastric Pain: Denies (Thor Lockett RN) Patient Position/Activity: Left Lateral (Thor Lockett RN) Comfort Measures: Breathing/Relaxation (Thor Lockett RN) Instructional Method: Demo; Verbal; Patient Instructed; Family/Support Person Instructed; Verbalized Understanding (Thor Lockett RN) Plan of Care: Plan of Care Discussed; Gestational Hypertension/Preeclampsia/Eclampsia (Thor Lockett RN) Unit Routine: [place] to Room; Call Vaz; Bed; Visiting Policy; Waiting Areas; Security; Phone/Cell Phone Use; Unit Personnel; Handwashing; Flu/Illness Precautions; Monitoring; Safety/Fall Risk Prevention; Bathroom Privileges (Thor Lockett RN) Pain Management: Pain Scale/Goals; Comfort Measures (Thor Lockett RN) PTL/PROM: PTL Stimulating Activities; Hydration; Signs/Symptoms of Infection (Thor Lockett RN) Related: Common Discomforts of ; Maternal Physical Changes; Maternal Emotional Changes; Nutrition; Hydration; Activity and Rest (Thor Lockett RN) Datetime: 04/16/2016 14:14 NBP Sys/Emmie/Mean (mmHg): 112 (QS system process) : 72 (QS system process) : 86 (QS system process) Pulse: 144 (QS system process)
--- NOTE | 2016-04-22 15:37 | L&D General Admission ---
General Admit Datetime Report Generated by CPN: 04/22/2016 15:36 INFORMATION Patient Age: 20 (02/13/2016 19:05:QS system process) EDC: 05/22/2016 00:00 (02/13/2016 19:18:Ana Saravia RN) : 2 (02/13/2016 19:18:Shaniqua Lorenzo RN) Para: 1 (04/08/2016 20:51:Shaniqua Lorenzo RN) Para: 1 (02/13/2016 19:18:Shaniqua Lorenzo RN) Term: 1 (02/13/2016 19:18:Latisha Ho RN) : 1 (02/13/2016 19:18:Shaniqua Lorenzo RN) Spontaneous Abortions: 0 (02/13/2016 19:18:Latisha Ho RN) Induced Abortions: 0 (02/13/2016 19:18:Latisha Ho RN) Livin (02/13/2016 19:18:Latisha Ho RN) Cesareans: 0 (02/13/2016 19:18:Latisha Ho RN) VBACs: 0 (02/13/2016 19:18:Latisha Ho RN) Ectopic: 0 (02/13/2016 19:18:Latisha Ho RN) Multiple Births: 0 (02/13/2016 19:18:Latisha Ho RN) Baby, Number in Womb: 1 (04/08/2016 20:51:Shaniqua Lorenzo RN) Baby, Number in Womb: 1 (02/13/2016 20:38:Shaniqua Lorenzo RN) Baby, Number in Womb: 1 (02/13/2016 19:18:Latisha Ho RN) CARE Primary Occupational Therapy Technician: [facility] (02/13/2016 19:18:Shaniqua Lorenzo RN) Adequate Care: Yes (02/13/2016 19:18:Shaniqua Lorenzo RN) ALLERGIES Medication Allergy: Yes (02/13/2016 19:18:Shaniqua Lorenzo RN) Medication Allergies: alamide Eye drops make eyes swell shut (02/13/2016 19:18:Shaniqua Lorenzo RN) Latex Allergy: No Latex Allergies (02/13/2016 19:18:Shaniqua Lorenzo RN) Food Allergies: NA (02/13/2016 19:18:Shaniqua Lorenzo RN) Environmental Allergies: NA (02/13/2016 19:18:Shaniqua Lorenzo RN) COMMUNICATION Primary Language: Irish (02/13/2016 19:18:Shaniqua Lorenzo RN) Medical Tx Preferred Language: Irish (02/13/2016 19:18:Shaniqua Lorenzo RN) Communication Barrier(s): None (02/13/2016 19:18:Shaniqua Lorenzo RN) DEMOGRAPHICS Address: [address] [place] [id number] (02/13/2016 19:05:QS system process) Zipcode: [address] (02/13/2016 19:05:QS system process) Home (02/13/2016 19:05:QS system process) SSN: [id number] (02/13/2016 19:05:QS system process) Next of Kin Name: NEO GARCÍA (02/13/2016 19:05:QS system process) Next of Kin (04/16/2016 13:53:QS system process) Next of Kin (02/13/2016 19:05:QS system process) Next of Kin Relationship: SPO (02/13/2016 19:05:QS system process) Date of : 1995 (02/13/2016 19:05:QS system process) Marital Status: (04/08/2016 18:47:QS system process) Marital Status: Single (02/13/2016 19:05:QS system process) Sex: Female (02/13/2016 19:05:QS system process) Race: (02/13/2016 19:05:QS system process) Ethnicity: Non- or (02/13/2016 19:05:QS system process) Adventism: None (02/13/2016 19:05:QS system process) DRUG AND ALCOHOL USE Alcohol: No (02/13/2016 19:18:Shaniqua Lorenzo RN) Cigarettes: Current Some Day Smoker. [id number] (02/13/2016 19:18:Shaniqua Lorenzo RN) Marijuana: No (02/13/2016 19:18:Shaniqua Lorenzo RN) Cocaine: No (02/13/2016 19:18:Shaniqua Lorenzo RN) Other Illicit Drugs: No (02/13/2016 19:18:Shaniqua Lorenzo RN) VACCINE HISTORY Influenza Vaccine: Yes (02/13/2016 19:18:Shaniqua oLrenzo RN) Influenza Date: 01/31/2016 (02/13/2016 19:18:Latisha Ho RN) Pneumococcal Vaccine: No (02/13/2016 19:18:Shaniqua Lorenzo RN) Tetanus Vaccine: Yes (02/13/2016 19:18:Shaniqua Lorenzo RN) Tdap Date: 2015 (02/13/2016 19:18:Shaniqua Lorenzo RN) Hepatitis B Vaccine: Yes (02/13/2016 19:18:Shaniqua Lorenzo RN) Well Tester: [facility] (02/13/2016 19:18:Shaniqua Lorenzo RN) Feeding Preference: Both (02/13/2016 19:18:Shaniqua Lorenzo RN) Benefit of Breast Feed Discussed: Yes (02/13/2016 19:18:Shaniqua Lorenzo RN) Circumcision: Yes (02/13/2016 19:18:Shaniqua Lorenzo RN) Classes Attended: [facility] (02/13/2016 19:18:Shaniqua Lorenzo RN) Tubal Ligation: No (02/13/2016 19:18:Shaniqua Lorenzo RN) Tubal Authorization Signed: N/A (02/13/2016 19:18:Shaniqua Lorenzo RN) Consent: N/A (02/13/2016 19:18:Shaniqua Lorenzo RN) Consent Signed: N/A (02/13/2016 19:18:Shaniqua Lorenzo RN) Pain Management Plans: Epidural (02/13/2016 19:18:Shaniqua Lorenzo RN) Plans for Labor and Delivery: None (02/13/2016 19:18:Shaniqua Lorenzo RN) Support Person: Neo García (02/13/2016 19:18:Shaniqua Lorenzo RN) Support Person Relationship: (02/13/2016 19:18:Shaniqua Lorenzo RN) Cultural/Spritual Practice: Ban (02/13/2016 19:18:Shaniqua Lorenzo RN) Spir/Cult Dietary Needs: No (02/13/2016 19:18:Shaniqua Lorenzo RN) LIVING SITUATION/DISCHARGE PLAN Living Arrangements: House (02/13/2016 19:18:Shaniqua Lorenzo RN) Adequate Access to:: Electric; Heat; Refrigeration; Plumbing/Running water; Phone; Transportation (02/13/2016 19:18:Shaniqua Lorenzo RN) WIC Program: Ban (02/13/2016 19:18:Shaniqua Lorenzo RN) Discharge Psych Sales Specialist Person: Neo García (02/13/2016 19:18:Shaniqua Lorenzo RN) Person to Help after Discharge: Neo García (02/13/2016 19:18:Shaniqua Lorenzo RN) Currently Using Commun Resources: No (02/13/2016 19:18:Shaniqua Lorenzo RN) Outside Agency/Supervisor Insulation: No (02/13/2016 19:18:Shaniqua Lorenzo RN) Car Seat for Discharge: Yes (02/13/2016 19:18:Shaniqua Lroenzo RN) Adoption Requested: No (02/13/2016 19:18:Shaniqua Lorenzo RN) Pt Contact w/ Post : N/A (02/13/2016 19:18:Shaniqua Lorenzo RN) LABS Blood Type: O Positive (02/13/2016 19:18:Latisha Ho RN) Antibody Screen: Negative (02/13/2016 19:18:Latisha Ho RN) Rho(G) this : Not Applicable (02/13/2016 19:18:Latisha Ho RN) Hemoglobin: 10.5 L (04/16/2016 14:34:QS system process) Hematocrit: 31.3 L (04/16/2016 14:34:QS system process) MCV: 81 (04/16/2016 14:34:QS system process) RPR/VDRL: Nonreactive (02/13/2016 19:18:Latisha Ho RN) HIV Results: Negative (02/13/2016 19:18:Latisha Ho RN) Hepatitis B: Negative (02/13/2016 19:18:Latisha Ho RN) Rubella: Immune (02/13/2016 19:18:Latisha Ho RN) OB/PREVIOUS HISTORY Previous Procedures: Ultrasound; NST (02/13/2016 19:18:Shaniqua Lorenzo RN) Current Procedures: Ultrasound (02/13/2016 19:18:Shaniqua Lorenzo RN) History of Previous : No (02/13/2016 19:18:Shaniqua Lorenzo RN) History of Gestational Diabetes: No (02/13/2016 19:18:Shaniqua Lorenzo RN) History of PIH: Yes (02/13/2016 19:18:Shaniqua Lorenzo RN) History of Incompetent Cervix: No (02/13/2016 19:18:Shaniqua Lorenzo RN) History of Placenta Previa/Abrup: No (02/13/2016 19:18:Shaniqua Lorenzo RN) History of Macrosomia: No (02/13/2016 19:18:Shaniqua Lorenzo RN) History of IUGR: No (02/13/2016 19:18:Shaniqua Lorenzo RN) History of Hemorrhage: No (02/13/2016 19:18:Shaniqua Lorenzo RN) History of Loss/Stillborn: No (02/13/2016 19:18:Shaniqua Lorenzo RN) History of : No (02/13/2016 19:18:Shaniqua Lorenzo RN) History of D (Rh) Sensitization: No (02/13/2016 19:18:Shaniqua Lorenzo RN) History Recurrent Loss/Stillborn: No (02/13/2016 19:18:Shaniqua Lorenzo RN) History Depression/PP Depression: No (02/13/2016 19:18:Shaniqua Lorenzo RN) History of Uterine Anomaly/FRAN: No (02/13/2016 19:18:Shaniqua Lorenzo RN) History of Infertility: No (02/13/2016 19:18:Shaniqua Lorenzo RN) History of ART Treatment: No (02/13/2016 19:18:Shaniqua Lorenzo RN) History of FRAN: No (02/13/2016 19:18:Shaniqua Lorenzo RN) Comments Obstetrical History: g1- 06/2013 baby boy 6lb 9oz pre-e pt had baby at "almost 36 weeks" g2- current , pre e, was on labetelol stopped in first trimester, has been taking baby asprin (02/13/2016 19:18:Ana Saravia RN) MEDICAL HISTORY Med Hx Diabetes: No (02/13/2016 19:18:Shaniqua Lorenzo RN) Med Hx Hypertension: No (02/13/2016 19:18:Shaniqua Lorenzo RN) Med Hx Heart Disease: Yes (02/13/2016 19:18:Shaniqua Lorenzo RN) Med Hx Autoimmune Disorder: No (02/13/2016 19:18:Shaniqua Lorenzo RN) Med Hx Kidney Disease/UTI: No (02/13/2016 19:18:Shaniqua Lorenzo RN) Med Hx Neurologic/Epilepsy: No (02/13/2016 19:18:Shaniqua Lorenzo RN) Med Hx Psychiatric Disorders: No (02/13/2016 19:18:Shaniqua Lorenzo RN) Med Hx Hepatitis/Liver Disease: No (02/13/2016 19:18:Shaniqua Lorenzo RN) Med Hx Varicosities/Phlebitis: No (02/13/2016 19:18:Shaniqua Lorenoz RN) Med Hx Thyroid Dysfunction: No (02/13/2016 19:18:Shaniqua Lorenzo RN) Med Hx Trauma/Violence: No (02/13/2016 19:18:Shaniqua Lorenzo RN) Med Hx Blood Transfusion: No (02/13/2016 19:18:Shaniqua Lorenzo RN) Med Hx Pulmonary (Asthma,TB): No (02/13/2016 19:18:Shaniqua Lorenzo RN) Med Hx Breast: No (02/13/2016 19:18:Shaniqua Lorenzo RN) Med Hx CONSULTING UTILITY FORESTER Surgery: No (02/13/2016 19:18:Shaniqua Lorenzo RN) Med Hx Hospitalization/Surgery: No (02/13/2016 19:18:Shaniqua Lorenzo RN) Med Hx Anesthetic Complications: No (02/13/2016 19:18:Shaniqua Lorenzo RN) Med Hx Abnormal Pap Smear: No (02/13/2016 19:18:Shaniqua Lorenzo RN) Other Medical Diseases: No (02/13/2016 19:18:Shaniqua Lorenzo RN) Med Hx Significant Family Hx: No (02/13/2016 19:18:Shaniqua Lorenzo RN) Details of Med/Surg Hx: Headaches, Pre E, pt states she has a heart condition but does not know name and was taking beta blockers before questionable SVT. (02/13/2016 19:18:Shaniqua Lorenzo RN) INFECTIOUS HISTORY Inf Hx Gonorrhea: No (02/13/2016 19:18:Shaniqua Lorenzo RN) Inf Hx Chlamydia: No (02/13/2016 19:18:Shaniqua Lorenzo RN) Inf Hx Syphilis: No (02/13/2016 19:18:Shaniqua Lorenzo RN) Inf Hx HIV/AIDS: No (02/13/2016 19:18:Shaniqua Lorenzo RN) Inf Hx Human Papilloma Virus: No (02/13/2016 19:18:Shaniqua Lorenzo RN) Inf Hx Pt/Partner Genital Herpes: No (02/13/2016 19:18:Shaniqua Lorenzo RN) Inf Hx Tuberculosis/Exposure: No (02/13/2016 19:18:Shaniqua Lorenzo RN) Inf Hx Hepatitis B,C: No (02/13/2016 19:18:Shaniqua Lorenzo RN) Inf Hx Rash or Viral Illness: No (02/13/2016 19:18:Shaniqua Lorenzo RN) GENETIC HISTORY Gen Hx Age >=35 at ALDO: No (02/13/2016 19:18:Shaniqua Lorenzo RN) Gen Hx Thalassemia: No (02/13/2016 19:18:Shaniqua Lorenzo RN) Gen Hx Congenital Heart Defect: No (02/13/2016 19:18:Shaniqua Lorenzo RN) Gen Hx Neural Tube Defect: No (02/13/2016 19:18:Shaniqua Lorenzo RN) Gen Hx Down's Syndrome: No (02/13/2016 19:18:Shaniqua Lorenzo RN) Gen Hx Chuy-Sachs: No (02/13/2016 19:18:Shaniqua Lorenzo RN) Gen Hx Jd: No (02/13/2016 19:18:Shaniqua Lorenzo RN) Gen Hx Familial Dysautonomia: No (02/13/2016 19:18:Shaniqua Lorenzo RN) Gen Hx Sickle Cell Disease/Trait: No (02/13/2016 19:18:Shaniqua Lorenzo RN) Gen Hx Hemophilia/Blood Disorder: No (02/13/2016 19:18:Shaniqua Lorenzo RN) Gen Hx Muscular Dystrophy: No (02/13/2016 19:18:Shaniqua Lorenzo RN) Gen Hx Cystic Fibrosis: No (02/13/2016 19:18:Shaniqua Lorenzo RN) Gen Hx Huntingtons Chorea: No (02/13/2016 19:18:Shaniqua Lorenzo RN) Gen Hx Mental Retardation/Autism: No (02/13/2016 19:18:Shaniqua Lorenzo RN) Gen Hx Tested for Fragile X: No (02/13/2016 19:18:Shaniqua Lorenzo RN) Gen Hx Other Inher/Chromosomal: No (02/13/2016 19:18:Shaniqua Lorenzo RN) Gen Hx Maternal Metabolic DO: No (02/13/2016 19:18:Shaniqua Lorenzo RN) Gen Hx Pt Father or FOB Defect: No (02/13/2016 19:18:Shaniqua Lorenzo RN) Gen Hx Other Genetic History: No (02/13/2016 19:18:Shaniqua Lorenzo RN) Gen Hx Drugs/Meds since LMP: No (02/13/2016 19:18:Shaniqua Lorenzo RN)
--- NOTE | 2016-04-22 15:38 | L&D Discharge Summary ---
OB Discharge Summary Datetime Report Generated by CPN: 04/22/2016 15:38 DISCHARGE DIAGNOSIS Diagnosis/Symptoms: Reassuring Surveillance - Annotate Details Diagnoses/Symptoms Other: Not in Labor- Repeat NST Treatment/Procedures Other: 50 mg vistaril PO Gestation: 35.2 Number of Babies in Womb: 1 Parity: 1 DIET/ACTIVITY/RESTRICTIONS Diet: Regular Activity: Normal Activity Activity Restrictions: No Exercising; Minimize Stair Climbing TEACHING/INSTRUCTIONS/REFERRALS Instructions Given To: Pt Instructions Understood: Patient Verbalized Understanding; Support Person Verbalized Understanding Referrals: None Educational Materials- Other: Kick Counts NST DISCHARGE INFORMATION Discharged AMA: No Discharge Date/Time: 04/19/2016 12:30 Discharged To: Home Discharge Provider Name: Gallo Godinez CNM Accompanied By: Friend Discharge Method: Ambulatory Condition: Stable FOLLOW UP INFORMATION Follow Up With: [facility] Follow Up On: As Scheduled Follow Up Phone Number: [facility] - Comments: Pt d/c home with reactive NST. Pt given care notes on kick counts and NST. Pt instructed to follow up in the office as scheduled. Pt verbalized understanding. Pt ambulated off unit in stable condition. GENERAL INSTR-CALL PROVIDER IF: Contractions: Contractions or cramps become more frequent than 8 in one hour or 4 in 20 minutes; Regular painful contractions every 5 minutes or less for one hour. Time your contractions from the beginning of one to the beginning of the next Pressure: Pressure in your vagina or lower abdomen that may feel like the baby is pushing down Period Like Cramps: Period-like cramps or low dull backache that may come and go Cramps/Diarrhea: Abdominal cramps that may be accompanied by diarrhea Gush of Fluid/Blood: Gush of fluid or blood from your vagina (it is normal to have spotting after vaginal exam or intercourse) Vaginal Discharge: Change in the type or amount of vaginal discharge Decreased Movement: Your baby is not moving as much as usual- 4 movements in 1 hour after drinking and resting on side Temperature: Temperature greater than 100.0(F) orally
== END 2016-04-16 15:45 | disposition home or self-care (01) ==
LOC: LC 13:53
PROVIDERS: ATTEND Specialist
PROC: 4A1HXCZ Monitoring of Products of Conception, Cardiac Rate, External Approach (ICD-10-PCS; principal; 2016-04-16)
DX: Z34.93 Encounter for supervision of normal pregnancy, unspecified, third trimester (principal); Z3A.34 34 weeks gestation of pregnancy
CPT/HCPCS: 36415; 59025; 80053; 80307; 81001; 82962; 83615; 84550; 85025; 93005; 93010; 94760

== ENCOUNTER 2016-04-19 11:12 | Outpatient (CLI) | payer OTHER ==
--- NOTE | 2016-04-19 12:01 | L&D Flow Sheet ---
LD Flowsheet Datetime Report Generated by CPN: 04/19/2016 12:00 Datetime: 04/19/2016 11:36 NBP Sys/Emmie/Mean (mmHg): 104 (QS system process) : 64 (QS system process) : 78 (QS system process) Pulse: 125 (QS system process) Respirations: 15 (Jackelin Mendiola RN) Temperature (F): 98.8 (Jackelin Mendiola RN) Temperature (C): 37.1 (QS system process) Temperature Route: Oral (Jackelin Mendiola RN) I/O Interventions: Popsicle; Clear Liquids Given (Jackelin Mendiola RN) LaborFlag: OB Triage (QS system process) Datetime: 04/19/2016 11:29 Patient Position/Activity: Left Lateral; Semi-Fowlers (Jackelin Mendiola RN) Instructional Method: Verbal; Patient Instructed; Verbalized Understanding (Jackelin Mendiola RN) Plan of Care: Plan of Care Discussed (Jackelin Mendiola RN) Unit Routine: [place] to Room; Call Vaz; Bed; Unit Personnel; Monitoring; Bathroom Privileges (Jackelin Mendiola RN)
--- NOTE | 2016-04-19 12:07 | Non Stress Test Report ---
Non Stress Test Datetime Report Generated by CPN: 04/19/2016 12:07 DEMOGRAPHIC EGA NST: 35.2 INDICATION Indication for Study: Ordered by Provider Indication for Study (NST) Other: Repeat NST MONITORING Monitor Explained: Monitor Explained; Test Explained; Patient Verbalized Understanding Time on Monitor: 04/19/2016 11:30 Time off Monitor: 04/19/2016 12:02 NST Duration: 32 NST INTERVENTIONS NST Interventions: PO Hydration Physician Notified NST: C. Godinez, CNM BABY A Movement : Present Contraction Frequency : 0 FHR Baseline : 150 Accelerations : 15X15 Decelerations : None Variability : Moderate 6-25bpm NST Review: Meets Criteria for Reactive NST NST Review and Verified By : Domenic Ingram RN NST Results: Reactive NST REPORT Report Trigger: Send Report
== END 2016-04-19 12:30 | disposition home or self-care (01) ==
LOC: LC 11:12
PROVIDERS: ATTEND Obstetrics & Gynecology
PROC: 4A1HXCZ Monitoring of Products of Conception, Cardiac Rate, External Approach (ICD-10-PCS; principal; 2016-04-19)
DX: Z34.93 Encounter for supervision of normal pregnancy, unspecified, third trimester (principal); Z3A.35 35 weeks gestation of pregnancy
CPT/HCPCS: 59025

== ENCOUNTER 2016-04-24 14:48 | Outpatient (CLI) | payer OTHER ==
--- NOTE | 2016-04-24 15:40 | Non Stress Test Report ---
Non Stress Test Datetime Report Generated by CPN: 04/24/2016 15:39 DEMOGRAPHIC EGA NST: 36.0 INDICATION Indication for Study: Ordered by Provider; Other Indication for Study (NST) Other: maternal h/o SVT MONITORING Monitor Explained: Monitor Explained; Test Explained; Patient Verbalized Understanding Time on Monitor: 04/24/2016 15:00 Time off Monitor: 04/24/2016 15:32 NST Duration: 32 NST INTERVENTIONS NST Interventions: PO Hydration; Reposition Patient Physician Notified NST: Ailsa Emmel, CNM BABY A: [id number] BABY A Movement : Present Contraction Frequency : none FHR Baseline : 145 Accelerations : 15X15 Decelerations : None Variability : Moderate 6-25bpm NST Review: Meets Criteria for Reactive NST NST Review and Verified By : Angela Herrera RN NST Results: Reactive NST REPORT Report Trigger: Send Report
== END 2016-04-24 15:34 | disposition home or self-care (01) ==
LOC: LC 14:48
PROVIDERS: ATTEND Obstetrics & Gynecology
PROC: 4A1HXCZ Monitoring of Products of Conception, Cardiac Rate, External Approach (ICD-10-PCS; principal; 2016-04-24)
DX: O99.413 Diseases of the circulatory system complicating pregnancy, third trimester (principal); I47.1 Supraventricular tachycardia; Z3A.36 36 weeks gestation of pregnancy
CPT/HCPCS: 59025

== ENCOUNTER 2016-04-26 11:41 | Outpatient (CLI) | payer OTHER ==
[2016-04-26 12:19] LABS: APPEARANCE,URINE SLIGHTLY-CLOUDY; BILIRUBIN,URINE NEGATIVE (NEGATIVE); GLUCOSE, URINE NEGATIVE (NEGATIVE); KETONES,URINE NEGATIVE (NEGATIVE); LEUKOCYTE ESTERASE,URINE SMALL (NEGATIVE); NITRITE,URINE NEGATIVE (NEGATIVE); PROTEIN,URINE NEGATIVE (NEGATIVE); URINE SPECIFIC GRAVITY 1.014; UROBILINOGEN,URINE NEGATIVE mg/dL (<2.0)
[2016-04-26 12:22] LABS: ABSOLUTE EOSINOPHILS # (AUTO) 0.3 10^3/uL (0.0-0.6); ABSOLUTE LYMPHOCYTES (AUTO) 1.5 10^3/uL (0.5-4.7); ABSOLUTE MONOCYTES (AUTO) 1.1 10^3/uL (0.1-1.4); BASOPHILS % (AUTO) 0.2 % (0-2); HEMATOCRIT 32.3 % (36.0-47.0); HEMOGLOBIN 10.5 g/dL (12.0-15.5); HGB HCT DIFFERENCE -0.8; LYMPHOCYTES % (AUTO) 9.5 % (13-45); MEAN CORPUSCULAR HEMOGLOBIN 26.3 pg (27.0-33.4); MEAN CORPUSCULAR HGB CONC 32.5 g/dL (32.0-36.0); MEAN CORPUSCULAR VOLUME 81 fl (80-97); MONOCYTES % (AUTO) 6.7 % (3-13); RED CELL DISTRIBUTION WIDTH 14.7 % (11.5-14.0); SEGMENTED NEUTROPHILS % (AUTO) 81.6 % (42-78); WHITE BLOOD COUNT 15.9 10^3/uL (4.0-10.5)
[2016-04-26 12:41] LABS: URINE BARBITURATES SCREEN NEGATIVE; URINE METHADONE SCREEN NEGATIVE; URINE PHENCYCLIDINE SCREEN NEGATIVE
[2016-04-26 12:43] LABS: ALANINE AMINOTRANSFERASE 16 U/L (9-52); ALBUMIN 3.2 g/dL (3.5-5.0); ALKALINE PHOSPHATASE 171 U/L (38-126); ANION GAP 11 (5-19); ASPARTATE AMINO TRANSFERASE 16 U/L (14-36); BILIRUBIN,TOTAL 0.4 mg/dL (0.2-1.3); BLOOD UREA NITROGEN 6 mg/dL (7-20); CALCIUM 9.3 mg/dL (8.4-10.2); CARBON DIOXIDE 20 mmol/L (22-30); CHLORIDE 106 mmol/L (98-107); CREATININE RESULT 0.55 mg/dL (0.52-1.25); GLUCOSE 78 mg/dL (75-110); LDH 392 U/L (313-618); POTASSIUM 4.3 mmol/L (3.6-5.0); SODIUM 136.5 mmol/L (137-145); TOTAL PROTEIN 6.3 g/dL (6.3-8.2); URIC ACID 4.3 mg/dL (2.5-6.2)
--- NOTE | 2016-04-26 13:01 | Non Stress Test Report ---
Non Stress Test Datetime Report Generated by CPN: 04/26/2016 13:01 DEMOGRAPHIC EGA NST: 36.2 INDICATION Indication for Study: Ordered by Provider Indication for Study (NST) Other: lc MONITORING Monitor Explained: Monitor Explained; Test Explained; Patient Verbalized Understanding Time on Monitor: 04/26/2016 11:57 Time off Monitor: 04/26/2016 12:59 NST Duration: 62 NST INTERVENTIONS NST Interventions: PO Hydration; Reposition Patient Physician Notified NST: Dr. Myers BABY A Movement : Present Contraction Frequency : occ FHR Baseline : 145 Accelerations : 15X15 Decelerations : None Variability : Moderate 6-25bpm NST Review: Meets Criteria for Reactive NST NST Review and Verified By : Rodrick Patricio RN NST Results: Reactive NST REPORT Report Trigger: Send Report
== END 2016-04-26 13:05 | disposition home or self-care (01) ==
LOC: LC 11:41
PROVIDERS: ATTEND Obstetrics & Gynecology
PROC: 4A1HXCZ Monitoring of Products of Conception, Cardiac Rate, External Approach (ICD-10-PCS; principal; 2016-04-26)
DX: O47.03 False labor before 37 completed weeks of gestation, third trimester (principal); Z3A.36 36 weeks gestation of pregnancy
CPT/HCPCS: 36415; 59025; 80053; 80307; 81001; 83615; 84550; 85025

== ENCOUNTER 2016-04-30 14:56 | Outpatient (CLI) | payer OTHER ==
[2016-04-30 15:48] LABS: ABSOLUTE EOSINOPHILS # (AUTO) 0.2 10^3/uL (0.0-0.6); ABSOLUTE LYMPHOCYTES (AUTO) 1.6 10^3/uL (0.5-4.7); ABSOLUTE MONOCYTES (AUTO) 1.4 10^3/uL (0.1-1.4); ABSOLUTE NEUT (AUTO) 15.4 10^3/uL (1.7-8.2); BASOPHILS % (AUTO) 0.2 % (0-2); EOSINOPHILS % (AUTO) 1.1 % (0-6); HEMATOCRIT 33.5 % (36.0-47.0); HEMOGLOBIN 10.7 g/dL (12.0-15.5); HGB HCT DIFFERENCE -1.4; LYMPHOCYTES % (AUTO) 8.8 % (13-45); MEAN CORPUSCULAR HEMOGLOBIN 25.5 pg (27.0-33.4); MEAN CORPUSCULAR VOLUME 80 fl (80-97); MONOCYTES % (AUTO) 7.5 % (3-13); RED CELL DISTRIBUTION WIDTH 14.4 % (11.5-14.0); SEGMENTED NEUTROPHILS % (AUTO) 82.4 % (42-78); WHITE BLOOD COUNT 18.6 10^3/uL (4.0-10.5)
--- NOTE | 2016-04-30 16:01 | L&D Flow Sheet ---
LD Flowsheet Datetime Report Generated by CPN: 04/30/2016 16:00 Datetime: 04/30/2016 15:57 NBP Sys/Emmie/Mean (mmHg): 113 (QS system process) : 75 (QS system process) : 87 (QS system process) Pulse: 114 (QS system process) LaborFlag: OB Triage (QS system process) Datetime: 04/30/2016 15:43 NBP Sys/Emmie/Mean (mmHg): 117 (QS system process) : 75 (QS system process) : 91 (QS system process) Pulse: 114 (QS system process) LaborFlag: OB Triage (QS system process) Datetime: 04/30/2016 15:28 NBP Sys/Emmie/Mean (mmHg): 115 (QS system process) : 75 (QS system process) : 90 (QS system process) Pulse: 121 (QS system process) LaborFlag: OB Triage (QS system process) Datetime: 04/30/2016 15:26 IV/Blood Work: Labs Drawn (Kirti Ingram, RN) Datetime: 04/30/2016 15:20 I/O Interventions: Popsicle (Kirti Ingram RN) Datetime: 04/30/2016 15:12 NBP Sys/Emmie/Mean (mmHg): 112 (QS system process) : 70 (QS system process) : 86 (QS system process) Pulse: 133 (QS system process) Monitor Interventions for UA: [place] Adjusted (Kirti Ingram RN) LaborFlag: OB Triage (QS system process) Datetime: 04/30/2016 15:10 Pain Scale: 2 (Kirti Ingram RN) Pain Presence: Constant (Kirti Ingram RN) Pain Type: Dull; Ache (Kirti Ingram RN) Pain Location: Head (Kirti Ingram RN) Pain Goal: 0 (Kirti Ingram RN) Vaginal Bleeding: None (Kirti Ingram RN) Level of Consciousness: Fully Conscious (Kirti Ingram RN) DTR's/Clonus: DTRs 2+; No Clonus (Kirti Ingram RN) Headache: Generalized (Kirti Ingram RN) Breath Sounds, Left: Clear and Equal (Kirti Ingram RN) Breath Sounds, Right: Clear and Equal (Kirti Ingram RN) Nausea/Vomiting: Denies (Kirti Ingram RN) RUQ Epigastric Pain: Denies (Kirti Ingram RN) Patient Position/Activity: Left Lateral; Low Fowlers (Kirti Ingram RN) Instructional Method: Demo; Verbal; Patient Instructed; Family/Support Person Instructed; Verbalized Understanding (Kirti Ingram RN) Plan of Care: Plan of Care Discussed; Gestational Hypertension/Preeclampsia/Eclampsia (Kirti Ingram RN) Unit Routine: [place] to Room; Call Vaz; Bed; Monitoring (Kirti Ingram RN) LaborFlag: OB Triage (QS system process)
[2016-04-30 16:09] LABS: ALANINE AMINOTRANSFERASE 24 U/L (9-52); ALBUMIN 3.7 g/dL (3.5-5.0); ALKALINE PHOSPHATASE 187 U/L (38-126); ANION GAP 11 (5-19); ASPARTATE AMINO TRANSFERASE 17 U/L (14-36); BILIRUBIN,TOTAL 0.5 mg/dL (0.2-1.3); BLOOD UREA NITROGEN 8 mg/dL (7-20); CALCIUM 9.6 mg/dL (8.4-10.2); CARBON DIOXIDE 21 mmol/L (22-30); CHLORIDE 104 mmol/L (98-107); CREATININE RESULT 0.53 mg/dL (0.52-1.25); GLUCOSE 68 mg/dL (75-110); LDH 432 U/L (313-618); SODIUM 135.7 mmol/L (137-145); TOTAL PROTEIN 6.7 g/dL (6.3-8.2); URIC ACID 4.7 mg/dL (2.5-6.2)
[2016-04-30 16:32] LABS: URINE BARBITURATES SCREEN NEGATIVE; URINE METHADONE SCREEN NEGATIVE; URINE PHENCYCLIDINE SCREEN NEGATIVE
[2016-04-30 16:34] LABS: APPEARANCE,URINE CLOUDY; BILIRUBIN,URINE NEGATIVE (NEGATIVE); GLUCOSE, URINE NEGATIVE (NEGATIVE); KETONES,URINE NEGATIVE (NEGATIVE); LEUKOCYTE ESTERASE,URINE MODERATE (NEGATIVE); NITRITE,URINE NEGATIVE (NEGATIVE); PROTEIN,URINE 30 mg/dL (NEGATIVE); URINE SPECIFIC GRAVITY 1.018; UROBILINOGEN,URINE NEGATIVE mg/dL (<2.0)
--- NOTE | 2016-04-30 16:54 | Non Stress Test Report ---
Non Stress Test Datetime Report Generated by CPN: 04/30/2016 16:54 DEMOGRAPHIC EGA NST: 36.6 INDICATION Indication for Study: Gestational Hypertension; Ordered by Provider MONITORING Monitor Explained: Monitor Explained; Test Explained; Patient Verbalized Understanding Time on Monitor: 04/30/2016 15:15 Time off Monitor: 04/30/2016 16:39 NST Duration: 84 NST INTERVENTIONS NST Interventions: PO Hydration Physician Notified NST: A. Emmel CNM BABY A Movement : Present Contraction Frequency : irreg FHR Baseline : 135 Accelerations : 15X15 Decelerations : None Variability : Moderate 6-25bpm NST Review: Meets Criteria for Reactive NST NST Review and Verified By : Rodrick Harding RN NST Results: Reactive NST REPORT Report Trigger: Send Report
== END 2016-04-30 16:42 | disposition home or self-care (01) ==
LOC: LC 14:56
PROVIDERS: ATTEND Obstetrics & Gynecology
PROC: 4A1HXCZ Monitoring of Products of Conception, Cardiac Rate, External Approach (ICD-10-PCS; principal; 2016-04-30)
DX: O13.3 Gestational [pregnancy-induced] hypertension without significant proteinuria, third trimester (principal); Z3A.36 36 weeks gestation of pregnancy
CPT/HCPCS: 36415; 59025; 80053; 80307; 81001; 83615; 84550; 85025

== ENCOUNTER 2016-05-02 10:29 | Inpatient (IN) | payer OTHER ==
[2016-05-02] MEDS ORDERED: RINGERS SOLUTION,LACTATED 300 ML IV ONE (10:38)
[2016-05-02 11:19] LABS: APPEARANCE,URINE CLOUDY; BILIRUBIN,URINE NEGATIVE (NEGATIVE); GLUCOSE, URINE NEGATIVE (NEGATIVE); KETONES,URINE NEGATIVE (NEGATIVE); LEUKOCYTE ESTERASE,URINE TRACE (NEGATIVE); NITRITE,URINE NEGATIVE (NEGATIVE); PROTEIN,URINE NEGATIVE (NEGATIVE); UROBILINOGEN,URINE NEGATIVE mg/dL (<2.0)
[2016-05-02 11:30] LABS: URINE BARBITURATES SCREEN NEGATIVE; URINE METHADONE SCREEN NEGATIVE; URINE OPIATES LOW NEGATIVE; URINE PHENCYCLIDINE SCREEN NEGATIVE
[2016-05-02] MEDS: RINGERS SOLUTION,LACTATED 1,000 ML IV PRN ×2 (11:39→12:08)
[2016-05-02] MEDS ORDERED: OXYTOCIN/NORMAL SALINE 20 UNIT/1,000 ML RTUINJ ONE ×2 (11:40→16:45)
[2016-05-02 11:44] LABS: ABSOLUTE EOSINOPHILS # (AUTO) 0.2 10^3/uL (0.0-0.6); ABSOLUTE LYMPHOCYTES (AUTO) 1.5 10^3/uL (0.5-4.7); ABSOLUTE MONOCYTES (AUTO) 1.3 10^3/uL (0.1-1.4); ABSOLUTE NEUT (AUTO) 13.5 10^3/uL (1.7-8.2); BASOPHILS % (AUTO) 0.2 % (0-2); EOSINOPHILS % (AUTO) 1.3 % (0-6); HEMOGLOBIN 10.2 g/dL (12.0-15.5); HGB HCT DIFFERENCE -2.4; LYMPHOCYTES % (AUTO) 9.2 % (13-45); MEAN CORPUSCULAR HGB CONC 30.9 g/dL (32.0-36.0); MEAN CORPUSCULAR VOLUME 81 fl (80-97); MONOCYTES % (AUTO) 8.1 % (3-13); RED BLOOD COUNT 4.07 10^6/uL (3.72-5.28); RED CELL DISTRIBUTION WIDTH 14.9 % (11.5-14.0); SEGMENTED NEUTROPHILS % (AUTO) 81.2 % (42-78); WHITE BLOOD COUNT 16.6 10^3/uL (4.0-10.5)
--- NOTE | 2016-05-02 12:00 | L&D Flow Sheet ---
LD Flowsheet Datetime Report Generated by CPN: 05/02/2016 12:00 Datetime: 05/02/2016 11:57 Provider Reviewed Strip: Yes (Thor Lockett RN) Communication Comments: K Manzo CNM reviewed strip, states to start pitocin protocol. (Thor Saxenat, RN) Datetime: 05/02/2016 11:35 IV/Blood Work: IV Started; IV Bolus Started; Labs Drawn (DEACON Dixon) Patient Care Comments: 18g jelco placed in right upper forearm LR 1000 ml up for 300 ml bolus (Josette Camp, RNC) Datetime: 05/02/2016 11:31 IV/Blood Work: Labs Drawn (Thor Lockett, RN) Datetime: 05/02/2016 11:22 Procedures: Consents Signed (Thor Cathryn, RN) Datetime: 05/02/2016 11:16 Stage of : Labor (Thor Lockett, RN) NBP Sys/Emmie/Mean (mmHg): 133 (QS system process) : 82 (QS system process) : 103 (QS system process) Pulse: 98 (QS system process) Pulse: 103 (QS system process) SpO2 (%): 96 (QS system process) Dilatation (cm): 2.0 (Thor Lockett RN) Effacement (%): 60 (Thor Lockett RN) Station: -2 (Thor Lockett RN) Exam by: Patrick Lockett RN (Thor Lockett RN) Dilatation (cm): 1-2 cm (Thor Lockett RN) Effacement: 60-70_ effaced (Thor Lockett RN) Station: minus 2 (Thor Lockett RN) Consistency: Medium (Thor Lockett RN) Position: Posterior (Thor Lockett RN) Total Peters's Score: 5 (QS system process) : 5-8 = Small percentage of induction failure (QS system process) Communication Comments: Dr Carias states to continue with induction, start pitocin protocol at 2mu/min 20units/1000ml NSS; increase by 2mu q 15min until max of 20 or adequate labor. (Thor Lockett RN) LaborFlag: Labor (QS system process) Datetime: 05/02/2016 11:11 Pulse: 131 (QS system process) SpO2 (%): 96 (QS system process) LaborFlag: OB Triage (QS system process) Datetime: 05/02/2016 11:06 Pulse: 116 (QS system process) SpO2 (%): 96 (QS system process) LaborFlag: OB Triage (QS system process) Datetime: 05/02/2016 11:04 Temperature (F): 97.9 (Thor Lockett RN) Temperature (C): 36.6 (QS system process) LaborFlag: OB Triage (QS system process) Datetime: 05/02/2016 11:01 NBP Sys/Emmie/Mean (mmHg): 128 (QS system process) : 83 (QS system process) : 100 (QS system process) Pulse: 117 (QS system process) Pulse: 129 (QS system process) SpO2 (%): 96 (QS system process) LaborFlag: OB Triage (QS system process) Datetime: 05/02/2016 10:56 Pulse: 123 (QS system process) SpO2 (%): 97 (QS system process) LaborFlag: OB Triage (QS system process) Datetime: 05/02/2016 10:51 Pulse: 146 (QS system process) SpO2 (%): 97 (QS system process) Pain Scale: 0 (Thor Lockett RN) Pain Presence: None/Denies (Thor Lockett, RN) Vaginal Bleeding: None (Thor Lockett RN) Level of Consciousness: Fully Conscious (Thor Lockett RN) DTR's/Clonus: DTRs 2+; No Clonus (Thor Lockett RN) Headache: Denies (Thor Lockett, RN) Breath Sounds, Left: Clear and Equal (Thor Lokcett, RN) Breath Sounds, Right: Clear and Equal (Thor Lockett, RN) Nausea/Vomiting: Denies (Thor Lockett RN) RUQ Epigastric Pain: Denies (Thor Lockett RN) Patient Position/Activity: Left Lateral (Thor Lockett RN) Comfort Measures: Breathing/Relaxation (Thor Lockett RN) I/O Interventions: Up to BR (Thor Lockett RN) Instructional Method: Demo; Verbal; Patient Instructed; Family/Support Person Instructed; Verbalized Understanding (Thor Lockett RN) Plan of Care: Plan of Care Discussed; Induction; Gestational Hypertension/Preeclampsia/Eclampsia (Thor Lockett RN) Unit Routine: [place] to Room; Call Vaz; Bed; Visiting Policy; Waiting Areas; Infant Security; Phone/Cell Phone Use; Photography; Unit Personnel; Handwashing; Flu/Illness Precautions; Monitoring; IV Pumps; Safety/Fall Risk Prevention; Diet/Nutrition Services; Bathroom Privileges; Routine Time Outs; Medications (Thor Lockett RN) Labor/Induction: Labor Stages; Induction (Thor Lockett RN) Pain Management: PRN Medications; Pain Scale/Goals; Comfort Measures (Thor Lockett RN) Related: Common Discomforts of ; Maternal Physical Changes; Maternal Emotional Changes; Nutrition; Hydration; Activity and Rest (Thor Lockett RN) LaborFlag: OB Triage (QS system process) Datetime: 05/02/2016 10:47 NBP Sys/Emmie/Mean (mmHg): 127 (QS system process) : 79 (QS system process) : 96 (QS system process) Pulse: 142 (QS system process) LaborFlag: OB Triage (QS system process) Datetime: 05/02/2016 10:46 Pulse: 135 (QS system process) SpO2 (%): 96 (QS system process) LaborFlag: OB Triage (QS system process)
[2016-05-02 12:02] LABS: ALANINE AMINOTRANSFERASE 28 U/L (9-52); ALBUMIN 3.2 g/dL (3.5-5.0); ALKALINE PHOSPHATASE 181 U/L (38-126); ANION GAP 11 (5-19); ASPARTATE AMINO TRANSFERASE 16 U/L (14-36); BILIRUBIN,TOTAL 0.4 mg/dL (0.2-1.3); BLOOD UREA NITROGEN 8 mg/dL (7-20); CALCIUM 9.7 mg/dL (8.4-10.2); CARBON DIOXIDE 21 mmol/L (22-30); CHLORIDE 105 mmol/L (98-107); CREATININE RESULT 0.54 mg/dL (0.52-1.25); GLUCOSE 78 mg/dL (75-110); LDH 425 U/L (313-618); POTASSIUM 4.3 mmol/L (3.6-5.0); SODIUM 137.1 mmol/L (137-145); TOTAL PROTEIN 6.4 g/dL (6.3-8.2); URIC ACID 3.9 mg/dL (2.5-6.2)
--- NOTE | 2016-05-02 14:00 | L&D Flow Sheet ---
LD Flowsheet Datetime Report Generated by CPN: 05/02/2016 14:00 Datetime: 05/02/2016 13:51 NBP Sys/Emmie/Mean (mmHg): 118 (QS system process) : 67 (QS system process) : 85 (QS system process) Pulse: 105 (QS system process) LaborFlag: Labor (QS system process) Datetime: 05/02/2016 13:35 NBP Sys/Emmie/Mean (mmHg): 118 (QS system process) : 63 (QS system process) : 84 (QS system process) Pulse: 114 (QS system process) LaborFlag: Labor (QS system process) Datetime: 05/02/2016 13:24 Monitor Interventions for UA: [place] Adjusted (Thor Cathryn, RN) Datetime: 05/02/2016 13:23 Patient Position/Activity: Right Lateral (Thor Cathryn, RN) Datetime: 05/02/2016 13:19 NBP Sys/Emmie/Mean (mmHg): 134 (QS system process) : 84 (QS system process) : 101 (QS system process) Pulse: 108 (QS system process) Actions for Decelerations: Side to Side; IV Bolus (Thor Lockett RN) Patient Position/Activity: Left Lateral (Thor Lockett RN) LaborFlag: Labor (QS system process) Datetime: 05/02/2016 13:03 NBP Sys/Emmie/Mean (mmHg): 128 (QS system process) : 86 (QS system process) : 102 (QS system process) Pulse: 96 (QS system process) LaborFlag: Labor (QS system process) Datetime: 05/02/2016 12:50 Pitocin (milliunit): Pitocin Increased to (milliunits) @ 8 (Thor Lockett RN) Datetime: 05/02/2016 12:45 Monitor Mode: External; Palpation (Thor Molinaeet, RN) Frequency (min): 3-4 (Thor Cathryn, RN) Quality: Mild (Thor Cathryn, RN) Duration (sec): 70-100 (Thor Cathryn, RN) Duration Criteria: Less than Two 120 Second Contractions (Htor Cathryn, RN) Pattern: Normal: <= 5 Contractions in 10 Minutes (Thor Cathryn, RN) Resting Tone (Palpate): Relaxed (Thor Cathryn, RN) Monitor Mode: External US (Thor Saxenat, RN) FHR Baseline Rate : 140 (Thor Cathryn, RN) Variability: Moderate 6-25 bpm (Thor Cathryn, RN) Accelerations: Prolonged (Thor Cathryn, RN) Decelerations: None (Thor Cathryn, RN) Communication: RN at Bedside; RN Reviewed Strip (Thor Lockett, RN) Datetime: 05/02/2016 12:39 Membrane Status: Ruptured (Thor Molinaeet, RN) Membranes Rupture Method: Artificial (Thor Saxenat, RN) Amniotic Fluid Color: Clear (Thor Saxenat, RN) Amniotic Fluid Amount: Scant (Thor Molinaeet, RN) Amniotic Fluid Odor: Normal (Thor Saxenat, RN) Membrane Comments: via [place] by Dinora Manzo CNM (Thor Lockett, RN) Datetime: 05/02/2016 12:33 NBP Sys/Emmie/Mean (mmHg): 128 (QS system process) : 84 (QS system process) : 100 (QS system process) Pulse: 111 (QS system process) LaborFlag: Labor (QS system process) Datetime: 05/02/2016 12:30 Monitor Mode: External; Palpation (Thor Lockett RN) Frequency (min): 3-4 (Thor Lockett, RN) Quality: Mild (Thor Lockett, RN) Duration (sec): 60-90 (Thor Lockett RN) Duration Criteria: Less than Two 120 Second Contractions (Thor Lockett RN) Pattern: Normal: <= 5 Contractions in 10 Minutes (Thor Lockett RN) Resting Tone (Palpate): Relaxed (Thor Lockett RN) Monitor Mode: External US (Thor Lockett RN) FHR Baseline Rate : 145 (Thor Lockett, MICHAEL) Variability: Moderate 6-25 bpm (Thor Lockett RN) Accelerations: 15X15 (Thor Lockett RN) Decelerations: None (Thor Lockett RN) Pitocin (milliunit): Pitocin Increased to (milliunits) @ (Annotations: 6) (Thor Lockett RN) Communication: RN at Bedside; RN Reviewed Strip (Thor Lockett RN) Datetime: 05/02/2016 12:18 I/O Interventions: Up to BR (Thor Lockett RN) Datetime: 05/02/2016 12:15 Monitor Mode: External; Palpation (Thor Lockett RN) Frequency (min): none/ pt denies (Thor Lockett RN) Resting Tone (Palpate): Relaxed (Thor Lockett RN) Monitor Mode: External US (Thor Lockett RN) FHR Baseline Rate : 150 (Thor Lockett RN) Variability: Moderate 6-25 bpm (Thor Lockett, RN) Accelerations: 15X15 (Thor Lockett RN) Decelerations: Variable (Thor Lockett RN) Pitocin (milliunit): Pitocin Increased to (milliunits) @ 4 (Thor Lockett RN) Communication: RN at Bedside; RN Reviewed Strip (Thor Lockett RN) Datetime: 05/02/2016 12:00 Respirations: 18 (Thor Lockett RN) Monitor Mode: External; Palpation (Thor Lockett RN) Frequency (min): none/ pt denies (Thor Lockett RN) Resting Tone (Palpate): Relaxed (Thor Lockett RN) Monitor Mode: External US (Thor Lockett RN) FHR Baseline Rate : 155 (Thor Lockett, RN) Variability: Moderate 6-25 bpm (Thor Lockett, RN) Accelerations: 15X15 (Thor Lockett, RN) Decelerations: None (Thor Lockett RN) Pain Presence: None/Denies (Tohr Lockett RN) Pain Assessment Comments: Pt watching tv, resting comfortably. (Thor Lockett RN) Level of Consciousness: Fully Conscious (Thor Lockett RN) Headache: Denies (Thor Lockett RN) Breath Sounds, Left: Clear and Equal (Thor Lockett RN) Breath Sounds, Right: Clear and Equal (Thor Lockett RN) Nausea/Vomiting: Denies (Thor Lockett RN) RUQ Epigastric Pain: Denies (Thor Lockett, MICHAEL) Pitocin (milliunit): Pitocin Started (milliunits) @ 2 (DEACON Dixon) Pitocin (milliunit): Pitocin Started (milliunits) @ 2 (Thor Lockett RN) Plan of Care: Plan of Care Discussed (Thor Lockett RN) Unit Routine: Medications (Thor Lockett RN) Labor/Induction: Labor Stages; Induction (Thor Lockett RN) Pain Management: Pain Scale/Goals; Comfort Measures (Thor Lockett RN) Medications: Pitocin (Thor Lockett RN) Communication: RN at Bedside; RN Reviewed Strip (Thor Lockett RN) LaborFlag: Labor (QS system process)
[2016-05-02] MEDS ORDERED: PROMETHAZINE HCL INJ 25 MG/1 ML VIAL IV ONE (15:52)
[2016-05-02] MEDS ORDERED: NALBUPHINE HCL INJ 10 MG/1 ML AMPULE IV ONE (15:52)
[2016-05-02] MEDS ORDERED: NALBUPHINE HCL INJ 10 MG/1 ML AMPULE IM ONE (15:53)
[2016-05-02] MEDS ORDERED: NALBUPHINE HCL INJ 10 MG/1 ML AMPULE ONE (15:57)
[2016-05-02] MEDS ORDERED: PROMETHAZINE HCL INJ 25 MG/1 ML VIAL ONE (15:57)
--- NOTE | 2016-05-02 16:00 | L&D Flow Sheet ---
LD Flowsheet Datetime Report Generated by CPN: 05/02/2016 16:00 Datetime: 05/02/2016 15:53 Pain Scale: 4 (Thor Lockett RN) Pain Presence: Intermittent (Thor Lockett RN) Pain Type: Contraction (Thor Lockett RN) Pain Location: Abdomen (Thor Lockett RN) Pain Relief Measures: Comfort Measures (Thor Lockett RN) Pain Coping: Breathing Through Contractions; Requesting Pain Medication or Epidural (Thor Lockett RN) Communication Comments: Dinora Manzo CNM reviewed strip, notified of pain level; orders for nubain 10mg IVP, nubain 10mg IM, phenergan 12.5mg IVP now. (Thor Lockett RN) LaborFlag: Labor (QS system process) Datetime: 05/02/2016 15:50 NBP Sys/Emmie/Mean (mmHg): 153 (QS system process) : 93 (QS system process) : 118 (QS system process) Pulse: 121 (QS system process) LaborFlag: Labor (QS system process) Datetime: 05/02/2016 15:30 Monitor Mode: External; Palpation (Thor Lockett RN) Frequency (min): 2.5-3 (Thor Lockett, RN) Quality: Mild/Moderate (Thor Lockett, RN) Duration (sec): 70-100 (Thor Lockett, RN) Duration Criteria: Less than Two 120 Second Contractions (Thor Lockett, RN) Pattern: Normal: <= 5 Contractions in 10 Minutes (Thor Lockett, RN) Resting Tone (Palpate): Relaxed (Thor Lockett, RN) Monitor Mode: External US (Thor Lockett, RN) FHR Baseline Rate : 135 (Thor Lockett, RN) Variability: Moderate 6-25 bpm (Thor Lockett, RN) Accelerations: 15X15 (Thor Lockett, RN) Decelerations: None (Thor Lockett, RN) Pitocin (milliunit): Pitocin Remains (milliunits) @ (Thor Lockett RN) Communication: RN at Bedside; RN Reviewed Strip (Thor Lockett RN) Datetime: 05/02/2016 15:21 NBP Sys/Emmie/Mean (mmHg): 137 (QS system process) : 85 (QS system process) : 106 (QS system process) Pulse: 104 (QS system process) LaborFlag: Labor (QS system process) Datetime: 05/02/2016 15:20 Pitocin (milliunit): Pitocin Increased to (milliunits) @ 16 (Thor Lockett RN) Medication Comments: Per K Manzo CNM order (Thor Lockett RN) Patient Position/Activity: Birthing Ball (Thor Lockett RN) Datetime: 05/02/2016 15:16 Monitor Interventions for FHR: Ultrasound Adjusted (Thor Lockett, MICHAEL) Datetime: 05/02/2016 15:15 Monitor Mode: External; Palpation (Thor Lockett RN) Frequency (min): 2.5-3 (Thor Lockett RN) Quality: Mild/Moderate (Thor Lockett RN) Duration (sec): 60-80 (Thor Lockett RN) Resting Tone (Palpate): Relaxed (Thor Lockett RN) Monitor Mode: External US (Thor Lockett RN) FHR Baseline Rate : 135 (Thor Lockett RN) Variability: Moderate 6-25 bpm (Thor Lockett RN) Accelerations: None (Thor Lockett, MICHAEL) Decelerations: Early (Thor Lockett, MICHAEL) Pain Scale: 3 (Thor Lockett RN) Pain Presence: Intermittent (Thor Lockett RN) Pain Type: Contraction (Thor Lockett RN) Pain Location: Abdomen (Thor Lockett, MICHAEL) Pain Relief Measures: Comfort Measures (Thor Lockett RN) Pain Coping: Breathing Through Contractions; Declines Medication or Epidural (Thor Lockett RN) Dilatation (cm): 3.0 (Thor Lockett RN) Effacement (%): 60 (Thor Lockett RN) Station: -2 (Thor Lockett RN) Exam by: Dinora Manzo CNM (Thor Lockett RN) Pitocin (milliunit): Pitocin Remains (milliunits) @ (Thor Lockett RN) Comfort Measures: Breathing/Relaxation (Thor Lockett RN) Communication: RN at Bedside; RN Reviewed Strip (Thor Lockett RN) Communication Comments: Dinora Manzo CNM at bedside (Thor Lockett RN) LaborFlag: Labor (QS system process) Datetime: 05/02/2016 15:00 Monitor Mode: External; Palpation (Thor Lockett RN) Frequency (min): 2-3 (Thor Lockett RN) Quality: Mild/Moderate (Thor Lockett RN) Duration (sec): 60-80 (Thor Lockett RN) Duration Criteria: Less than Two 120 Second Contractions (Thor Lockett RN) Pattern: Normal: <= 5 Contractions in 10 Minutes (Thor Lockett RN) Resting Tone (Palpate): Relaxed (Thor Lockett RN) Monitor Mode: External US (Thor Lockett RN) FHR Baseline Rate : 135 (Thor Lockett RN) Variability: Moderate 6-25 bpm (Thor Lockett RN) Accelerations: 15X15 (Thor Lockett RN) Decelerations: Early (Thor Lockett RN) Pitocin (milliunit): Pitocin Remains (milliunits) @ (Thor Lockett RN) Communication: RN at Bedside; RN Reviewed Strip (Thor Lockett RN) Datetime: 05/02/2016 14:48 NBP Sys/Emmie/Mean (mmHg): 116 (QS system process) : 68 (QS system process) : 86 (QS system process) Pulse: 90 (QS system process) LaborFlag: Labor (QS system process) Datetime: 05/02/2016 14:47 Temperature (F): 98.0 (Thor Lockett RN) Temperature (C): 36.7 (QS system process) Monitor Interventions for UA: [place] Adjusted (Thor Lockett RN) Monitor Interventions for FHR: Ultrasound Adjusted (Thor Lockett RN) LaborFlag: Labor (QS system process) Datetime: 05/02/2016 14:45 Respirations: 20 (Thor Lockett RN) Monitor Mode: External; Palpation (Thor Lockett RN) Frequency (min): 2-3 (Thor Lockett RN) Quality: Mild/Moderate (Thor Lockett RN) Duration (sec): 60-90 (Thor Lockett RN) Duration Criteria: Less than Two 120 Second Contractions (Thor Lockett RN) Pattern: Normal: <= 5 Contractions in 10 Minutes (Thor Lockett RN) Resting Tone (Palpate): Relaxed (Thor Lockett RN) Monitor Mode: External US (Thor Lockett RN) FHR Baseline Rate : 135 (Thor Lockett RN) Variability: Moderate 6-25 bpm (Thor Lockett RN) Accelerations: None (Thor Lockett RN) Decelerations: None (Thor Lockett RN) Comments: Broken tracing, RN adjusting (Thor Lockett RN) Pain Scale: 3 (Thor Locektt RN) Pain Presence: Intermittent (Thor Lockett RN) Pain Type: Contraction (Thor Lockett RN) Pain Location: Abdomen (Thor Lockett RN) Pain Relief Measures: Comfort Measures (Thor Lockett RN) Pain Coping: Talking Through Contractions; Declines Medication or Epidural (Thor Lockett RN) Pitocin (milliunit): Pitocin Increased to (milliunits) @ 14 (Thor Lockett RN) Patient Position/Activity: Left Lateral; Peanut Ball (Thro Lockett RN) Comfort Measures: Breathing/Relaxation (Thor Lockett RN) Communication: RN at Bedside; RN Reviewed Strip (Thor Lockett RN) LaborFlag: Labor (QS system process) Datetime: 05/02/2016 14:34 NBP Sys/Emmie/Mean (mmHg): 115 (QS system process) : 63 (QS system process) : 82 (QS system process) Pulse: 100 (QS system process) LaborFlag: Labor (QS system process) Datetime: 05/02/2016 14:30 Monitor Mode: External; Palpation (Thor Lockett RN) Frequency (min): 2.5-3.5 (Thor Lockett, RN) Quality: Mild/Moderate (Thor Lockett, RN) Duration (sec): 70-90 (Thor Lockett, RN) Duration Criteria: Less than Two 120 Second Contractions (Thor Lockett, RN) Pattern: Normal: <= 5 Contractions in 10 Minutes (Thor Lockett, RN) Resting Tone (Palpate): Relaxed (Thor Lockett, RN) Monitor Mode: External US (Thor Lockett RN) FHR Baseline Rate : 130 (Thor Lockett RN) Variability: Moderate 6-25 bpm (Thor Lockett RN) Accelerations: 10X10 (Thor Lockett RN) Decelerations: None (Thor Lockett RN) Pitocin (milliunit): Pitocin Remains (milliunits) @ (Thor Lockett RN) Communication: RN at Bedside; RN Reviewed Strip (Thor Lockett RN) Datetime: 05/02/2016 14:22 Monitor Interventions for UA: [place] Adjusted (Thor Lockett RN) Pitocin (milliunit): Pitocin Increased to (milliunits) @ (Annotations: 12) (Vira Herrera RN) Datetime: 05/02/2016 14:18 NBP Sys/Emmie/Mean (mmHg): 114 (QS system process) : 62 (QS system process) : 83 (QS system process) Pulse: 105 (QS system process) LaborFlag: Labor (QS system process) Datetime: 05/02/2016 14:15 Monitor Mode: External; Palpation (Thor Lockett, RN) Frequency (min): 3-4 (Thor Lockett, RN) Quality: Mild/Moderate (Thor Lockett, RN) Duration (sec): 50-70 (Thor Lockett, RN) Duration Criteria: Less than Two 120 Second Contractions (Thor Lockett, RN) Pattern: Normal: <= 5 Contractions in 10 Minutes (Thor Lockett RN) Resting Tone (Palpate): Relaxed (Thor Lockett RN) Monitor Mode: External US (Thor Lockett, RN) FHR Baseline Rate : 140 (Thor Lockett, RN) Variability: Moderate 6-25 bpm (Thor Lockett, RN) Accelerations: 15X15 (Thor Lockett, RN) Decelerations: None (Thor Lockett, RN) Comments: Broken tracing; RN adjusting (Thor Lockett, RN) Pitocin (milliunit): Pitocin Remains (milliunits) @ (Thor Lockett RN) Communication: RN at Bedside; RN Reviewed Strip (Thor Lockett RN) Datetime: 05/02/2016 14:12 I/O Interventions: Up to BR (Thor Cathryn, RN) Datetime: 05/02/2016 14:08 Monitor Interventions for FHR: Ultrasound Adjusted (Thor Cathryn, RN) Datetime: 05/02/2016 14:03 NBP Sys/Emmie/Mean (mmHg): 108 (QS system process) : 63 (QS system process) : 79 (QS system process) Pulse: 109 (QS system process) LaborFlag: Labor (QS system process) Datetime: 05/02/2016 14:02 Pitocin (milliunit): Pitocin Increased to (milliunits) @ 10 (Thor Lockett, RN) Datetime: 05/02/2016 14:01 Monitor Interventions for UA: [place] Adjusted (Thor Lockett, RN) Datetime: 05/02/2016 14:00 Monitor Mode: External; Palpation (Thor Lockett, RN) Frequency (min): 2-3 (Thor Lockett, RN) Quality: Mild/Moderate (Thor Lockett, RN) Duration (sec): 80-100 (Thor Lockett RN) Duration Criteria: Less than Two 120 Second Contractions (Thor Lockett, RN) Pattern: Normal: <= 5 Contractions in 10 Minutes (Thor Lockett, RN) Resting Tone (Palpate): Relaxed (Thor Lockett RN) Monitor Mode: External US (Thor Lockett RN) FHR Baseline Rate : 140 (Thor Lockett RN) Variability: Moderate 6-25 bpm (Thor Lockett RN) Accelerations: 15X15 (Thor Lockett RN) Decelerations: Prolonged (Thor Lockett RN) Comments: Broken tracing, RN adjusting (Thor Lockett RN) Communication: RN at Bedside; RN Reviewed Strip (Thor Lockett RN)
[2016-05-02] MEDS: OXYTOCIN/NORMAL SALINE 1,000 ML IV PRN ×3 (16:15→21:48)
[2016-05-02] MEDS ORDERED: FENTANYL/BUPIVACAINE/NS/PF 200 MCG/100 ML RTUINJ EPI ONE (16:44)
[2016-05-02] MEDS ORDERED: EPHEDRINE SULFATE INJ 50 MG/1 ML AMPULE ONE (16:44)
[2016-05-02] MEDS ORDERED: BUPIVACAINE HCL 0.25 % INJ/PF (2.5 MG/1 ML) 30 ML VIAL ONE (16:45)
[2016-05-02] MEDS ORDERED: LIDOCAINE 1% INJ-PF (10 MG/ML) 30 ML SDV ONE (16:45)
[2016-05-02] MEDS ORDERED: MISOPROSTOL 0.2 MG TABLET ONE (16:45)
--- NOTE | 2016-05-02 18:00 | L&D Flow Sheet ---
LD Flowsheet Datetime Report Generated by CPN: 05/02/2016 18:00 Datetime: 05/02/2016 17:56 NBP Sys/Emmie/Mean (mmHg): 123 (QS system process) : 68 (QS system process) : 90 (QS system process) Pulse: 117 (QS system process) LaborFlag: Labor (QS system process) Datetime: 05/02/2016 17:50 Respirations: 18 (Thor Cathryn, RN) Temperature (F): 98.2 (Thor Lockett RN) Temperature (C): 36.8 (QS system process) Level of Consciousness: Fully Conscious (Thor Lockett RN) Headache: Denies (Thor Lockett RN) Breath Sounds, Left: Clear and Equal (Thor Lockett RN) Breath Sounds, Right: Clear and Equal (Thor Lockett RN) Nausea/Vomiting: Denies (Thor Lockett RN) RUQ Epigastric Pain: Denies (Thor Lockett RN) Patient Care Comments: Pt resting comfortably, no distress noted, no complaints noted (Thor Lockett RN) LaborFlag: Labor (QS system process) Datetime: 05/02/2016 17:47 Monitor Interventions for UA: [place] Adjusted (Thor Lockett RN) Datetime: 05/02/2016 17:45 Monitor Mode: External; Palpation (Thor Lockett RN) Frequency (min): 2-2.5 (Thor Lockett RN) Quality: Moderate (Thor Lockett RN) Duration Criteria: Less than Two 120 Second Contractions (Thor Lockett RN) Pattern: Normal: <= 5 Contractions in 10 Minutes (Thor Lockett RN) Resting Tone (Palpate): Relaxed (Thor Lockett RN) Monitor Mode: External US (Thor Lockett RN) FHR Baseline Rate : 135 (Thor Lockett RN) Variability: Moderate 6-25 bpm (Thor Lockett RN) Accelerations: 10X10 (Thor Lockett RN) Decelerations: Early (Thor Lockett RN) Pitocin (milliunit): Pitocin Remains (milliunits) @ 18 (Thor Lockett RN) Patient Position/Activity: Right Lateral; Peanut Ball (Thor Lockett RN) Communication: RN at Bedside; RN Reviewed Strip (Thor Lockett RN) Datetime: 05/02/2016 17:41 NBP Sys/Emmie/Mean (mmHg): 130 (QS system process) : 60 (QS system process) : 87 (QS system process) Pulse: 115 (QS system process) LaborFlag: Labor (QS system process) Datetime: 05/02/2016 17:30 Monitor Mode: External; Palpation (Thor Lockett RN) Frequency (min): 2-3 (Thor Lockett RN) Quality: Moderate (Thor Lockett RN) Duration (sec): 60-80 (Thor Lockett RN) Duration Criteria: Less than Two 120 Second Contractions (Thor Lockett RN) Resting Tone (Palpate): Relaxed (Thor Lockett RN) Monitor Mode: External US (Thor Lockett RN) FHR Baseline Rate : 140 (Thor Lockett RN) Variability: Moderate 6-25 bpm (Thor Lockett RN) Accelerations: None (Thor Lockett RN) Decelerations: Early (Thor Lockett RN) Pitocin (milliunit): Pitocin Remains (milliunits) @ 18 (Thor Lockett RN) Communication: RN at Bedside; RN Reviewed Strip (Thor Lockett RN) Datetime: 05/02/2016 17:25 NBP Sys/Emmie/Mean (mmHg): 128 (QS system process) : 60 (QS system process) : 86 (QS system process) Pulse: 102 (QS system process) LaborFlag: Labor (QS system process) Datetime: 05/02/2016 17:24 NBP Sys/Emmie/Mean (mmHg): 121 (QS system process) : 59 (QS system process) : 85 (QS system process) Pulse: 123 (QS system process) Dilatation (cm): 4.0 (Thor Lockett, RN) Effacement (%): 70 (Thor Lockett, RN) Station: 0 (Thor Lockett, RN) Exam by: S Cathryn RN (Thor Lockett RN) Vaginal Bleeding: None (Thor Lockett RN) Cervix, Consistency: Soft (Thor Lockett RN) Cervix, Position: Midposition (Thor Lockett, RN) LaborFlag: Labor (QS system process) Datetime: 05/02/2016 17:23 NBP Sys/Emmie/Mean (mmHg): 129 (QS system process) : 61 (QS system process) : 88 (QS system process) Pulse: 100 (QS system process) LaborFlag: Labor (QS system process) Datetime: 05/02/2016 17:22 NBP Sys/Emmie/Mean (mmHg): 128 (QS system process) : 58 (QS system process) : 83 (QS system process) Pulse: 105 (QS system process) I/O Interventions: Arceo Cath Inserted (Thor Lockett RN) LaborFlag: Labor (QS system process) Datetime: 05/02/2016 17:21 NBP Sys/Emmie/Mean (mmHg): 125 (QS system process) : 60 (QS system process) : 86 (QS system process) Pulse: 91 (QS system process) LaborFlag: Labor (QS system process) Datetime: 05/02/2016 17:20 NBP Sys/Emmie/Mean (mmHg): 132 (QS system process) : 63 (QS system process) : 90 (QS system process) Pulse: 103 (QS system process) LaborFlag: Labor (QS system process) Datetime: 05/02/2016 17:19 NBP Sys/Emmie/Mean (mmHg): 136 (QS system process) : 66 (QS system process) : 94 (QS system process) Pulse: 94 (QS system process) Epidural Procedure Other: Pump Started (Thor Lockett RN) LaborFlag: Labor (QS system process) Datetime: 05/02/2016 17:18 NBP Sys/Emmie/Mean (mmHg): 139 (QS system process) : 71 (QS system process) : 96 (QS system process) Pulse: 108 (QS system process) Anesthesia Level Check: T10- Umbilicus (Thor Lockett RN) LaborFlag: Labor (QS system process) Datetime: 05/02/2016 17:17 NBP Sys/Emmie/Mean (mmHg): 134 (QS system process) : 81 (QS system process) : 100 (QS system process) Pulse: 99 (QS system process) Pain Scale: 2 (Thor Lockett RN) Pain Presence: Intermittent (Thor Lockett RN) Pain Type: Pressure (Thor Lockett RN) Pain Location: Perineum (Thor Lockett RN) Pain Relief Measures: Epidural Given; Comfort Measures (Thor Lockett RN) Patient Position/Activity: Left Tilt (Thor Lockett RN) Comfort Measures: Breathing/Relaxation (Thor Lockett RN) Anesthesia Level Check: T10- Umbilicus (Thor Lockett RN) Communication: RN at Bedside; RN Reviewed Strip (Thor Lockett RN) LaborFlag: Labor (QS system process) Datetime: 05/02/2016 17:16 NBP Sys/Emmie/Mean (mmHg): 141 (QS system process) : 75 (QS system process) : 101 (QS system process) Pulse: 104 (QS system process) LaborFlag: Labor (QS system process) Datetime: 05/02/2016 17:15 NBP Sys/Emmie/Mean (mmHg): 144 (QS system process) : 80 (QS system process) : 107 (QS system process) Pulse: 104 (QS system process) Monitor Mode: External; Palpation (Thor Lockett RN) Frequency (min): 2-3 (Thor Lockett RN) Quality: Moderate (Thor Lockett RN) Duration (sec): 70-90 (Thor Lockett RN) Duration Criteria: Less than Two 120 Second Contractions (Thor Lockett RN) Pattern: Normal: <= 5 Contractions in 10 Minutes (Thor Lockett RN) Resting Tone (Palpate): Relaxed (Thor Lockett RN) Monitor Mode: External US (Thor Lockett RN) FHR Baseline Rate : 140 (Thor Lockett RN) Variability: Moderate 6-25 bpm (Thor Lockett RN) Accelerations: None (Thor Lockett RN) Decelerations: Early (Thor Lockett RN) Pitocin (milliunit): Pitocin Remains (milliunits) @ 18 (Thor Lockett RN) Communication: RN at Bedside; RN Reviewed Strip (Thor Lockett RN) LaborFlag: Labor (QS system process) Datetime: 05/02/2016 17:14 NBP Sys/Emmie/Mean (mmHg): 143 (QS system process) : 85 (QS system process) : 108 (QS system process) Pulse: 118 (QS system process) LaborFlag: Labor (QS system process) Datetime: 05/02/2016 17:13 NBP Sys/Emmie/Mean (mmHg): 137 (QS system process) : 93 (QS system process) : 112 (QS system process) Pulse: 121 (QS system process) LaborFlag: Labor (QS system process) Datetime: 05/02/2016 17:12 NBP Sys/Emmie/Mean (mmHg): 139 (QS system process) : 99 (QS system process) : 115 (QS system process) Pulse: 118 (QS system process) Pulse: 146 (QS system process) SpO2 (%): 100 (QS system process) Epidural Procedure: Cath Placed (Thor Molinaeet, RN) LaborFlag: Labor (QS system process) Datetime: 05/02/2016 17:11 Epidural Procedure: Test Dose (Thor Molinaeet, RN) Datetime: 05/02/2016 17:07 Pulse: 96 (QS system process) SpO2 (%): 100 (QS system process) IV/Blood Work: New IV Bag Hung (Thor Saxenat, RN) LaborFlag: Labor (QS system process) Datetime: 05/02/2016 17:02 Pulse: 96 (QS system process) SpO2 (%): 100 (QS system process) LaborFlag: Labor (QS system process) Datetime: 05/02/2016 17:01 Procedure Verify: Correct Patient Identity; Correct Side and Site are Marked; Accurate Procedure Consent Form; Agreement on Procedure to be Done; Correct Patient Position (Thor Lockett RN) Epidural Positioning: Sitting (Thor Lockett RN) Anesthesia Comments: Dr. Ding at bedside (Thor Lockett RN) Datetime: 05/02/2016 17:00 Monitor Mode: External; Palpation (Thor Lockett RN) Frequency (min): 2-3 (Thor Lockett RN) Quality: Moderate (Thor Lockett RN) Duration (sec): 60-80 (Thor Lockett RN) Resting Tone (Palpate): Relaxed (Thor Lockett RN) Monitor Mode: External US (Thor Lockett RN) FHR Baseline Rate : 145 (Thor Lockett RN) Variability: Moderate 6-25 bpm (Thor Lockett RN) Accelerations: None (Thor Lockett RN) Decelerations: Early (Thor Lockett RN) Pitocin (milliunit): Pitocin Remains (milliunits) @ 18 (Thor Lockett RN) Communication: RN at Bedside; RN Reviewed Strip (Thor Lockett RN) Datetime: 05/02/2016 16:58 Pain Scale: 5 (Thor Lockett RN) Pain Type: Contraction (Thor Lockett RN) Pain Coping: Requesting Pain Medication or Epidural (Thor Lockett RN) Procedure Verify: Correct Patient Identity; Correct Side and Site are Marked; Accurate Procedure Consent Form; Agreement on Procedure to be Done; Correct Patient Position; Relevant Images and Results are Properly Labeled and Displayed; Addressed Need to Administer Antibiotics or Fluids for Irrigation; Safety Precautions Based on Patient History or Medication Use (Thor Lockett RN) Anesthesia Plans: Epidural (Thor Lockett RN) Epidural Positioning: Sitting (Thor Lockett RN) LaborFlag: Labor (QS system process) Datetime: 05/02/2016 16:57 Pulse: 96 (QS system process) SpO2 (%): 100 (QS system process) LaborFlag: Labor (QS system process) Datetime: 05/02/2016 16:56 Anesthesia Comments: Dr Kaliszewski called for epidrual (Thor Cathrny, RN) Datetime: 05/02/2016 16:52 Pulse: 107 (QS system process) SpO2 (%): 100 (QS system process) LaborFlag: Labor (QS system process) Datetime: 05/02/2016 16:45 Contraction Comments: UTD pt off monitors (Thor Cathryn, RN) Comments: UTD Pt off monitors (Thor Cathryn, RN) Datetime: 05/02/2016 16:40 Communication Comments: K Manzo CNM reviewed strip; Notifed of pt pain level, requesting epidural, time pain medications given pt denies relief. Provider states pt may have epidural now. (Thor Cathryn, RN) Datetime: 05/02/2016 16:32 I/O Interventions: Up to BR (Thor Cathryn, RN) Datetime: 05/02/2016 16:30 Monitor Mode: External; Palpation (Thor Lockett RN) Frequency (min): 2-4 (Thor Lockett RN) Quality: Moderate (Thor Lockett RN) Duration (sec): 60-80 (Tohr Lockett RN) Duration Criteria: Less than Two 120 Second Contractions (Thor Lockett RN) Pattern: Normal: <= 5 Contractions in 10 Minutes (Thor Lockett RN) Resting Tone (Palpate): Relaxed (Thor Lockett RN) Monitor Mode: External US (Thor Lockett RN) FHR Baseline Rate : 135 (Thor Lockett RN) Variability: Moderate 6-25 bpm (Thor Lockett RN) Accelerations: None (Thor Lockett RN) Decelerations: Early (Thor Lockett RN) Pitocin (milliunit): Pitocin Remains (milliunits) @ 18 (Thor Lockett RN) Communication: RN at Bedside; RN Reviewed Strip (Thor Lockett RN) Datetime: 05/02/2016 16:20 NBP Sys/Emmie/Mean (mmHg): 130 (QS system process) : 81 (QS system process) : 99 (QS system process) Pulse: 83 (QS system process) LaborFlag: Labor (QS system process) Datetime: 05/02/2016 16:15 Monitor Mode: External; Palpation (Thor Lockett RN) Frequency (min): 2-3 (Thor Lockett RN) Quality: Moderate (Thor Lockett RN) Duration (sec): 50-70 (Thor Lockett RN) Duration Criteria: Less than Two 120 Second Contractions (Thor Lockett RN) Pattern: Normal: <= 5 Contractions in 10 Minutes (Thor Lockett RN) Resting Tone (Palpate): Relaxed (Thor Lockett RN) Monitor Mode: External US (Thor Lockett RN) FHR Baseline Rate : 135 (Thor Lockett RN) Variability: Moderate 6-25 bpm (Thor Lockett RN) Accelerations: None (Thor Lockett RN) Decelerations: Early (Thor Lockett RN) Comments: broken tracing/ RN adjusting (Thor Lockett RN) Pitocin (milliunit): Pitocin Remains (milliunits) @ 18 (Thor Lockett RN) Communication: RN at Bedside; RN Reviewed Strip (Thor Lockett RN) Datetime: 05/02/2016 16:09 Patient Position/Activity: Left Lateral; Peanut Ball (Thor Cathryn, RN) Datetime: 05/02/2016 16:04 Analgesics/Sedatives: Nubain (mg) @ 10mg IM R Thigh; 10mg IV over 2 min with saline flush; Phenergan (mg) @ 12.5mg IVP over 2 min with saline flush (Thor Cathryn, RN) Datetime: 05/02/2016 16:00 Monitor Mode: External; Palpation (Thor Molinaeet, RN) Frequency (min): 2-3 (Thor Molinaeet, RN) Quality: Moderate (Thor Cathryn, RN) Duration (sec): 60-70 (Thor Molinaeet, RN) Resting Tone (Palpate): Relaxed (Thor Molinaeet, RN) Monitor Mode: External US (Thor Lockett RN) FHR Baseline Rate : 135 (Thor Lockett RN) Variability: Moderate 6-25 bpm (Thor Lockett RN) Accelerations: 15X15 (Thor Lockett RN) Decelerations: None (Thor Lockett RN) Comments: Broken tracing; RN adjusting (Thor Lockett RN) Pitocin (milliunit): Pitocin Remains (milliunits) @ (Thor Lockett RN) Communication: RN at Bedside; RN Reviewed Strip (Thor Lockett RN)
--- NOTE | 2016-05-02 20:00 | L&D Flow Sheet ---
LD Flowsheet Datetime Report Generated by CPN: 05/02/2016 20:00 Datetime: 05/02/2016 19:58 NBP Sys/Emmie/Mean (mmHg): 127 (QS system process) : 58 (QS system process) : 83 (QS system process) Pulse: 121 (QS system process) LaborFlag: Labor (QS system process) Datetime: 05/02/2016 19:56 NBP Sys/Emmie/Mean (mmHg): 116 (QS system process) : 57 (QS system process) : 82 (QS system process) Pulse: 123 (QS system process) LaborFlag: Labor (QS system process) Datetime: 05/02/2016 19:51 Communication Comments: Nursery informed of baby's and report given. (Janeth Simone, RN) Datetime: 05/02/2016 19:42 NBP Sys/Emmie/Mean (mmHg): 134 (QS system process) : 62 (QS system process) : 89 (QS system process) Pulse: 121 (QS system process) LaborFlag: Labor (QS system process) Datetime: 05/02/2016 19:30 Pushing: Coached on Pushing; Urge to Push (Crystal Maura, RN) Pushing Position: Pushing with Contractions (Crystal Roxana, RN) Pushing Progress: Descent with Pushing (Crystal Roxana, RN) Datetime: 05/02/2016 19:28 Pushing: Coached on Pushing; Urge to Push (Crystal Maura, RN) Pushing Position: Pushing with Contractions (Crystal Maura, RN) Datetime: 05/02/2016 19:27 NBP Sys/Emmie/Mean (mmHg): 133 (QS system process) : 70 (QS system process) : 94 (QS system process) Pulse: 115 (QS system process) LaborFlag: Labor (QS system process) Datetime: 05/02/2016 19:13 Communication Comments: Report to Nichole Lorenzo RN, Care relinquished at this time. (Thor Lockett, MICHAEL) Datetime: 05/02/2016 19:12 NBP Sys/Emmie/Mean (mmHg): 129 (QS system process) : 76 (QS system process) : 95 (QS system process) Pulse: 100 (QS system process) LaborFlag: Labor (QS system process) Datetime: 05/02/2016 19:11 Level of Consciousness: Fully Conscious (Crystal Roxana, RN) DTR's/Clonus: DTRs 2+; No Clonus (Crystal Maura, RN) Headache: Denies (Crystal Maura, RN) Breath Sounds, Left: Clear and Equal (Shaniqua Lorenzo RN) Breath Sounds, Right: Clear and Equal (Shaniqua Lorenzo RN) Nausea/Vomiting: Denies (Shaniqua Lorenzo RN) RUQ Epigastric Pain: Denies (Shaniqua Lorenzo RN) Pitocin (milliunit): Pitocin Remains (milliunits) @ (Annotations: 18) (Shaniqua Lorenzo RN) Datetime: 05/02/2016 19:10 Dilatation (cm): 10.0 (Shaniqua Lorenzo RN) Effacement (%): 100 (Shaniqua Lorenzo RN) Station: 1 (Shaniqua Lorenzo RN) Exam by: Dr. Carias (Shaniqua Lorenzo RN) Communication: Provider at Bedside (Shaniqua Lorenzo RN) Datetime: 05/02/2016 19:00 Respirations: 18 (Thor Lockett RN) Monitor Mode: External; Palpation (Thor Lockett RN) Frequency (min): 2-2.5 (Thor Lockett RN) Quality: Moderate (Thor Lockett RN) Duration (sec): 60-100 (Thor Lockett RN) Duration Criteria: Less than Two 120 Second Contractions (Thor Lockett RN) Pattern: Normal: <= 5 Contractions in 10 Minutes (Thor Lockett RN) Resting Tone (Palpate): Relaxed (Thor Lockett RN) Monitor Mode: External US (Thor Lockett RN) FHR Baseline Rate : 135 (Thor Lockett RN) Variability: Moderate 6-25 bpm (Thor Lockett RN) Accelerations: 15X15 (Thor Lockett RN) Decelerations: None (Thor Lockett RN) Pain Scale: 2 (Thor Lockett RN) Pain Presence: Intermittent (Thor Lockett RN) Pain Type: Pressure (Thor Lockett RN) Pain Location: Perineum (Thor Lockett RN) Pain Relief Measures: Comfort Measures (Thor Lockett RN) Pain Coping: Breathing Through Contractions; Declines Medication or Epidural (Thor Lockett RN) Level of Consciousness: Fully Conscious (Thor Lockett RN) Headache: Denies (Thor Lockett RN) Nausea/Vomiting: Denies (Thor Lockett RN) RUQ Epigastric Pain: Denies (Thor Lockett RN) Pitocin (milliunit): Pitocin Remains (milliunits) @ (Annotations: 18) (Thor Lockett RN) Communication: RN at Bedside; RN Reviewed Strip (Thor Lockett RN) LaborFlag: Labor (QS system process) Datetime: 05/02/2016 18:57 NBP Sys/Emmie/Mean (mmHg): 130 (QS system process) : 73 (QS system process) : 95 (QS system process) Pulse: 89 (QS system process) LaborFlag: Labor (QS system process) Datetime: 05/02/2016 18:45 Monitor Mode: External; Palpation (Thor Lockett RN) Frequency (min): 1.5-2.5 (Thor Lockett RN) Quality: Moderate (Thor Lockett RN) Resting Tone (Palpate): Relaxed (Thor Lockett RN) Monitor Mode: External US (hTor Lockett RN) FHR Baseline Rate : 135 (Thor Lockett RN) Variability: Moderate 6-25 bpm (Thor Lockett RN) Accelerations: 10X10 (Thor Lockett RN) Decelerations: None (Thor Lockett RN) Pitocin (milliunit): Pitocin Remains (milliunits) @ 18 (Thor Lockett RN) Communication: RN at Bedside; RN Reviewed Strip (Thor Lockett RN) Datetime: 05/02/2016 18:41 NBP Sys/Emmie/Mean (mmHg): 140 (QS system process) : 79 (QS system process) : 102 (QS system process) Pulse: 122 (QS system process) LaborFlag: Labor (QS system process) Datetime: 05/02/2016 18:30 Monitor Mode: External; Palpation (Thor Lockett RN) Frequency (min): 2-4 (Thor Lockett RN) Quality: Moderate (Thor Lockett RN) Duration (sec): 60-80 (Thor Lockett RN) Duration Criteria: Less than Two 120 Second Contractions (Thor Lockett RN) Pattern: Normal: <= 5 Contractions in 10 Minutes (Thor Lockett RN) Resting Tone (Palpate): Relaxed (Thor Lockett RN) Monitor Mode: External US (Thor Lockett RN) FHR Baseline Rate : 135 (Thor Lockett RN) Variability: Moderate 6-25 bpm (Thor Lockett RN) Accelerations: 15X15 (Thor Lockett RN) Decelerations: None (Thor Lockett RN) Comments: Broken tracing/ RN adjusting (Thor Lockett RN) Pitocin (milliunit): Pitocin Remains (milliunits) @ 18 (Thor Cathryn, RN) Communication: RN at Bedside; RN Reviewed Strip (Thor Cathryn, RN) Datetime: 05/02/2016 18:26 Monitor Interventions for UA: Rossie Adjusted (Thor Cathryn, RN) Datetime: 05/02/2016 18:24 Patient Position/Activity: Tailors (Thor Cathryn, RN) Datetime: 05/02/2016 18:21 Monitor Interventions for FHR: Ultrasound Adjusted (Thor Cathryn, RN) Datetime: 05/02/2016 18:15 Monitor Mode: External; Palpation (Thor Lockett, RN) Frequency (min): 2-3 (Thor Lockett RN) Quality: Mild/Moderate (Thor Lockett, RN) Duration (sec): 60-80 (Thor Lockett, RN) Resting Tone (Palpate): Relaxed (Thor Lockett RN) Monitor Mode: External US (Thor Lockett, RN) FHR Baseline Rate : 125 (Thor Lockett, RN) Variability: Moderate 6-25 bpm (Thor Molinaeet, RN) Accelerations: None (Thor Lockett, RN) Decelerations: Early (Thor Lockett RN) Pitocin (milliunit): Pitocin Remains (milliunits) @ 18 (Thor Lockett, RN) Communication: RN at Bedside; RN Reviewed Strip (Thor Lockett RN) Datetime: 05/02/2016 18:11 NBP Sys/Emmie/Mean (mmHg): 125 (QS system process) : 72 (QS system process) : 89 (QS system process) Pulse: 92 (QS system process) LaborFlag: Labor (QS system process) Datetime: 05/02/2016 18:07 Patient Position/Activity: Left Lateral; Peanut Ball (Thor Lockett RN) Datetime: 05/02/2016 18:00 Monitor Mode: External; Palpation (Thor Lockett RN) Frequency (min): 2-2.5 (Thor Lockett RN) Quality: Moderate (Thor Lockett RN) Duration (sec): 70-90 (Thor Lockett, RN) Duration Criteria: Less than Two 120 Second Contractions (Thor Lockett RN) Pattern: Normal: <= 5 Contractions in 10 Minutes (Thor Lockett RN) Resting Tone (Palpate): Relaxed (Thor Lockett RN) Monitor Mode: External US (Thor Lockett RN) FHR Baseline Rate : 130 (Thor Cathryn, RN) Variability: Minimal - Undetectable to <=5 bpm (Thor Lockett RN) Accelerations: None (Thor Lockett RN) Decelerations: Early (Thor Lockett RN) Pitocin (milliunit): Pitocin Remains (milliunits) @ 18 (Thor Lockett RN) Communication: RN at Bedside; RN Reviewed Strip (Thor Lockett RN)
[2016-05-02] MEDS ORDERED: ACETAMINOPHEN WITH CODEINE #3 TABLET PO PRN (22:04)
[2016-05-02] MEDS ORDERED: ZOLPIDEM TARTRATE 5 MG TABLET PO PRN (22:04)
[2016-05-02] MEDS ORDERED: BENZOCAINE/MENTHOL AEROSOL SPRAY 56 ML TOP PRN (22:04)
[2016-05-02] MEDS ORDERED: DIBUCAINE 1% OINTMENT 28 GM TP PRN (22:04)
[2016-05-02] MEDS ORDERED: OXYTOCIN/NORMAL SALINE 20 UNIT/1,000 ML RTUINJ IV PRN (22:04)
[2016-05-02] MEDS ORDERED: MEASLES,MUMPS&RUBELLA VACC/PF 0.5 ML VIAL SUBCUT PRN (22:04)
[2016-05-02] MEDS ORDERED: DIPH/PERTUSS(ACELL)/TETANUS VAC/PF 0.5 ML SYR (>=10YO) IM PRN (22:04)
--- NOTE | 2016-05-02 23:07 | Admission Physical ---
Datetime Report Generated by CPN: 05/02/2016 23:07 CURRENT ADMISSION Chief Complaint: Scheduled Induction of Labor Indication for Induction: Gest. HTN/PreEclampsia/Eclampsia Admit Plan: Admit to Unit; Initiate Labor Induction Protocol ALLERGIES Medication Allergies: Yes Medication Allergies: ondansetron (05/02/2016) Latex: No Latex Allergies Food Allergies: NA Environmental Allergies: NA OBSTETRICAL HISTORY EDC: 05/22/2016 00:00 : 2 Para: 1 Term: 1 : 1 SAB: 0 IAB: 0 Ectopic: 0 Livin Cesareans: 0 VBACs: 0 Multiple Births: 0 Gestational Diabetes: No Rh Sensitization: No Incompetent Cervix: No FRAN: No Infertility: No ART Treatment: No Uterine Anomaly: No IUGR: No Hx Previous C/S: No Macrosomia: No Hx Loss/Stillborn: No PIH: Yes Hx : No Placenta Previa/Abruption: No Depression/PP Depression: No PTL/PROM: No Post Hemorrhage: No Current Procedures: Ultrasound Obstetrical History Comments: - 06/2013 baby boy 6lb 9oz pre-e pt had baby at "almost 36 weeks" g2- current , pre e, was on labetelol stopped in first trimester, has been taking baby asprin SEE RECORDS Alcohol: No Marijuana : No Cocaine: No Other Illicit Drugs: No Cigarettes: Current Some Day Smoker. 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 INFECTIOUS HISTORY Gonorrhea: No Genital Herpes: No Chlamydia: No Tuberculosis: No Syphilis: No Hepatitis: No HIV/AIDS Exposure: No Rash or Viral Illness: No HPV: No PHYSICAL EXAM General: Normal HEENT: Deferred Neurologic: Deferred Thyroid: Deferred Heart: Normal Lungs: Normal Breast: Deferred Back: Normal Abdomen: Normal Genitourinary Exam: Normal Extremities: Normal DTRs: Normal Pelvic Type: Adequate VAGINAL EXAM Dilatation: 3 Effacement: 50 Station: -1 MEMBRANES Membranes: Ruptured Amniotic Fluid Color: Clear FETUS A EGA: 34.6 Monitoring: External US FHR- Baseline: 155 Variability: Moderate 6-25bpm Accelerations: 15X15 Decelerations: None Admit Comment: sent from office, has had 2 severe range pressures, admit for induction per Dr. Carias + headache, no vision changes, no epigastric pain Pre-E labs normal PLANS FOR LABOR AND DELIVERY Labor and Delivery: None Pain Management: Epidural Feeding Preference: Both Benefit of Breast Feed Discussed: Yes Circumcision: Yes INFORMED CONSENT Assignment: Monae Carias MD Signature: with User ID: [email or web address] : with User ID: [email or web address]
[2016-05-03] MEDS: ACETAMINOPHEN WITH CODEINE #3 TABLET PO PRN ×3 (02:04→19:01)
[2016-05-03] MEDS: IBUPROFEN 800 MG TABLET PO SCH ×3 (05:16→21:22)
--- NOTE | 2016-05-03 07:00 | L&D Flow Sheet ---
LD Flowsheet Datetime Report Generated by CPN: 05/03/2016 07:00 Datetime: 05/02/2016 22:16 Stage of : Recovery (Crystal Maura, RN) Datetime: 05/02/2016 22:00 Stage of : Recovery (Crystal Maura, RN) Datetime: 05/02/2016 21:45 Stage of : Recovery (Crystal Crystal, RN) Datetime: 05/02/2016 21:41 NBP Sys/Emmie/Mean (mmHg): 117 (QS system process) : 77 (QS system process) : 91 (QS system process) Pulse: 136 (QS system process) Datetime: 05/02/2016 21:30 Stage of : Recovery (Crystal Maura, RN) Datetime: 05/02/2016 21:26 NBP Sys/Emmie/Mean (mmHg): 123 (QS system process) : 74 (QS system process) : 93 (QS system process) Pulse: 114 (QS system process) Datetime: 05/02/2016 21:15 Stage of : Recovery (Crystal Crystal, RN) Pain Scale: 0 (Crystal Maura, RN) Pain Presence: None/Denies (Crystal Maura, RN) Pain Type: N/A (Crystal Maura, RN) Pain Goal: 2 (Crystal Crystal, RN) Pain Relief Measures: Comfort Measures (Crystal Crystal, RN) Datetime: 05/02/2016 21:11 NBP Sys/Emmie/Mean (mmHg): 130 (QS system process) : 80 (QS system process) : 99 (QS system process) Pulse: 106 (QS system process) Datetime: 05/02/2016 21:00 Stage of : Recovery (Crystal Maura, RN) Pain Scale: 1 (Crystal Maura, RN) Pain Presence: Intermittent (Crystal Crystal, RN) Pain Type: Ache (Crystal Maura, RN) Pain Location: Abdomen (Crystal Crystal, RN) Pain Goal: 2 (Crystal Maura, RN) Pain Relief Measures: Comfort Measures (Crystal Crystal, RN) Datetime: 05/02/2016 20:56 NBP Sys/Emmie/Mean (mmHg): 126 (QS system process) : 72 (QS system process) : 91 (QS system process) Pulse: 107 (QS system process) Datetime: 05/02/2016 20:45 Stage of : Recovery (Crystal Crystal, RN) Pain Scale: 0 (Crystal Crystal, RN) Pain Presence: None/Denies (Crystal Crystal, RN) Pain Type: N/A (Crystal Crystal, RN) Pain Goal: 2 (Crystal Crystal, RN) Pain Relief Measures: Comfort Measures (Crystal Crystal, RN) Datetime: 05/02/2016 20:42 NBP Sys/Emmie/Mean (mmHg): 125 (QS system process) : 77 (QS system process) : 94 (QS system process) Pulse: 111 (QS system process) Datetime: 05/02/2016 20:30 Stage of : Recovery (Crystal Crystal, RN) Temperature (F): 98.7 (Crystal Crystal, RN) Temperature (C): 37.1 (QS system process) Temperature Route: Oral (Crystal Crystal, RN) Pain Scale: 0 (Crystal Crystal, RN) Pain Presence: None/Denies (Crystal Crystal, RN) Pain Type: N/A (Crystal Crystal, RN) Pain Goal: 2 (Crystal Crystal, RN) Pain Relief Measures: Comfort Measures (Crystal Crystal, RN) Datetime: 05/02/2016 20:26 NBP Sys/Emmie/Mean (mmHg): 132 (QS system process) : 66 (QS system process) : 91 (QS system process) Pulse: 130 (QS system process) Datetime: 05/02/2016 20:25 NBP Sys/Emmie/Mean (mmHg): 126 (QS system process) : 67 (QS system process) : 90 (QS system process) Pulse: 113 (QS system process) Datetime: 05/02/2016 20:19 Stage of : Recovery (Crystal Maura, RN) Datetime: 05/02/2016 20:15 Stage of : Recovery (Crystal Maura, RN) Pain Scale: 0 (Crystal Crystal, RN) Pain Presence: None/Denies (Crystal Crystal, RN) Pain Type: N/A (Crystal Crystal, RN) Pain Goal: 2 (Crystal Crystal, RN) Pain Relief Measures: Comfort Measures (Crystal Crystal, RN) Datetime: 05/02/2016 20:00 Stage of : Recovery (Crystal Crystal, RN) Pain Scale: 0 (Crystal Maura, RN) Pain Presence: None/Denies (Crystal Maura, RN) Pain Type: N/A (Crystal Maura, RN) Pain Goal: 2 (Crystal Maura, RN) Pain Relief Measures: Comfort Measures (Crystal Crystal, RN) Datetime: 05/02/2016 19:58 NBP Sys/Emmie/Mean (mmHg): 127 (QS system process) : 58 (QS system process) : 83 (QS system process) Pulse: 121 (QS system process) LaborFlag: Labor (QS system process) Datetime: 05/02/2016 19:56 NBP Sys/Emmie/Mean (mmHg): 116 (QS system process) : 57 (QS system process) : 82 (QS system process) Pulse: 123 (QS system process) LaborFlag: Labor (QS system process) Datetime: 05/02/2016 19:51 Communication Comments: Nursery informed of baby's and report given. (Janeth Nichols, RN) Datetime: 05/02/2016 19:42 NBP Sys/Emmie/Mean (mmHg): 134 (QS system process) : 62 (QS system process) : 89 (QS system process) Pulse: 121 (QS system process) Monitor Mode: External US (Crystal Maura, RN) FHR Baseline Rate : 145 (Crystal Maura, RN) Variability: Moderate 6-25 bpm (Crystal Crystal, RN) Accelerations: Prolonged (Crystal Maura, RN) Pushing: Coached on Pushing; Urge to Push (Crystal Maura, RN) Pushing Position: Pushing with Contractions; Pushing Lithotomy (Crystal Crystal, RN) LaborFlag: Labor (QS system process) Datetime: 05/02/2016 19:30 Pushing: Coached on Pushing; Urge to Push (Crystal Crystal, RN) Pushing Position: Pushing with Contractions (Crystal Maura, RN) Pushing Progress: Descent with Pushing (Crystal Maura, RN) Datetime: 05/02/2016 19:28 Pushing: Coached on Pushing; Urge to Push (Crystal Crystal, RN) Pushing Position: Pushing with Contractions (Crystal Crystal, RN) Datetime: 05/02/2016 19:27 NBP Sys/Emmie/Mean (mmHg): 133 (QS system process) : 70 (QS system process) : 94 (QS system process) Pulse: 115 (QS system process) LaborFlag: Labor (QS system process) Datetime: 05/02/2016 19:16 Monitor Mode: External; Palpation (Crystal Maura, RN) Frequency (min): 1.5-3 (Crystal Maura, RN) Quality: Strong (Crystal Maura, RN) Duration (sec): 70-80 (Crystal Maura, RN) Duration Criteria: Less than Two 120 Second Contractions (Crystal Maura, RN) Resting Tone (Palpate): Relaxed (Crystal Crystal, RN) Monitor Mode: External US (Crystal Maura, RN) FHR Baseline Rate : 150 (Crystal Maura, RN) Variability: Moderate 6-25 bpm (Crystal Maura, RN) Accelerations: None (Crystal Crystal, RN) Decelerations: Early (Crystal Crystal, RN) Pitocin (milliunit): Pitocin Remains (milliunits) @ 18 (Crystal Maura, RN) Datetime: 05/02/2016 19:15 Monitor Mode: External; Palpation (Crystal Maura, RN) Frequency (min): 1.5-3 (Crystal Maura, RN) Quality: Strong (Crystal Maura, RN) Duration (sec): 70-80 (Crystal Maura, RN) Duration Criteria: Less than Two 120 Second Contractions (Crystal Crystal, RN) Resting Tone (Palpate): Relaxed (Crystal Crystal, RN) Monitor Mode: External US (Shaniqua Ellisergrass, RN) FHR Baseline Rate : 145 (Crystal Crystal, RN) Variability: Moderate 6-25 bpm (Crystal Maura, RN) Accelerations: 15X15 (Crystal Maura, RN) Pitocin (milliunit): Pitocin Remains (milliunits) @ 18 (Crystal Crystal, RN) Patient Position/Activity: Right Tilt; Tailors (Crystal Maura, RN) I/O Interventions: Clear Liquids Given (Crystal Crystal, RN) Datetime: 05/02/2016 19:13 Communication Comments: Report to Nichole Lorenzo RN, Care relinquished at this time. (Thor Lockett RN) Datetime: 05/02/2016 19:12 NBP Sys/Emmie/Mean (mmHg): 129 (QS system process) : 76 (QS system process) : 95 (QS system process) Pulse: 100 (QS system process) LaborFlag: Labor (QS system process) Datetime: 05/02/2016 19:11 Level of Consciousness: Fully Conscious (Crystal Maura, RN) DTR's/Clonus: DTRs 2+; No Clonus (Crystal Crystal, RN) Headache: Denies (Crystal Crystal, RN) Breath Sounds, Left: Clear and Equal (Crystal Maura, RN) Breath Sounds, Right: Clear and Equal (Crystal Crystal, RN) Nausea/Vomiting: Denies (Crystal Crystal, RN) RUQ Epigastric Pain: Denies (Crystal Maura, RN) Pitocin (milliunit): Pitocin Remains (milliunits) @ (Annotations: 18) (Crystal Maura, RN) Datetime: 05/02/2016 19:10 Dilatation (cm): 10.0 (Shaniqua Lorenzo RN) Effacement (%): 100 (Shaniqua Lorenzo RN) Station: 1 (Shaniqua Lorenzo RN) Exam by: Dr. Carias (Shaniqua Lorenzo RN) Communication: Provider at Bedside (Shaniqua Lorenzo RN) Datetime: 05/02/2016 19:00 Respirations: 18 (Thor Lockett RN) Monitor Mode: External; Palpation (Thor Lockett RN) Frequency (min): 2-2.5 (Thor Lockett RN) Quality: Moderate (Thor Lockett RN) Duration (sec): 60-100 (Thor Lockett RN) Duration Criteria: Less than Two 120 Second Contractions (Thor Lockett RN) Pattern: Normal: <= 5 Contractions in 10 Minutes (Thor Lockett RN) Resting Tone (Palpate): Relaxed (Thor Lockett RN) Monitor Mode: External US (Thor Lockett RN) FHR Baseline Rate : 135 (Thor Lockett RN) Variability: Moderate 6-25 bpm (Thor Lockett RN) Accelerations: 15X15 (Thor Lockett RN) Decelerations: None (Thor Lockett RN) Pain Scale: 2 (Thor Lockett RN) Pain Presence: Intermittent (Thor Lockett RN) Pain Type: Pressure (Thor Lockett RN) Pain Location: Perineum (Thor Lockett RN) Pain Relief Measures: Comfort Measures (Thor Lockett RN) Pain Coping: Breathing Through Contractions; Declines Medication or Epidural (Thor Lockett RN) Level of Consciousness: Fully Conscious (Thor Lockett RN) Headache: Denies (Thor Lockett RN) Nausea/Vomiting: Denies (Thor Lockett RN) RUQ Epigastric Pain: Denies (Thor Lockett RN) Pitocin (milliunit): Pitocin Remains (milliunits) @ (Annotations: 18) (Thor Lockett RN) Communication: RN at Bedside; RN Reviewed Strip (Thor Lockett RN) LaborFlag: Labor (QS system process)
[2016-05-03 07:20] LABS: HEMATOCRIT 29.7 % (36.0-47.0); HEMOGLOBIN 9.4 g/dL (12.0-15.5); HGB HCT DIFFERENCE -1.5; MEAN CORPUSCULAR HEMOGLOBIN 25.4 pg (27.0-33.4); MEAN CORPUSCULAR HGB CONC 31.8 g/dL (32.0-36.0); MEAN CORPUSCULAR VOLUME 80 fl (80-97); RED BLOOD COUNT 3.73 10^6/uL (3.72-5.28); RED CELL DISTRIBUTION WIDTH 14.8 % (11.5-14.0); WHITE BLOOD COUNT 17.4 10^3/uL (4.0-10.5)
--- NOTE | 2016-05-03 08:52 | PDOC PROGRESS REPORT ---
Subjective-OB Subjective: Post Delivery Day: 20 year old. Denies any needs at this time Physical Exam (OB) Vital Signs: Temp Pulse Resp BP Pulse Ox 97.5 F 85 16 115/67 100 05/03/16 07:35 05/03/16 07:35 05/03/16 07:35 05/03/16 07:35 05/03/16 07:35 Intake & Output 05/02/16 05/03/16 05/04/16 06:59 06:59 06:59 Weight 88.9 kg Baby 1 Male 3.374 kg - Lochia Lochia Amount: Scant < 10 ml Lochia Color: Rubra/Red - Abdomen Description: Tender, Soft Hernia Present: No Bowel Sounds: Normoactive Flatus Presence: Present Stool: No Fundal Description: Firm, Midline Fundal Height: u/u - u/2 Objective-Diagnostic Laboratory: 05/03/16 06:53 05/02/16 11:33 05/02/16 05/02/16 05/02/16 10:40 11:33 11:33 WBC 16.6 H RBC 4.07 Hgb 10.2 L Hct 33.0 L MCV 81 MCH 25.0 L MCHC 30.9 L RDW 14.9 H Plt Count 267 Seg Neutrophils % 81.2 H Lymphocytes % 9.2 L Monocytes % 8.1 Eosinophils % 1.3 Basophils % 0.2 Absolute Neutrophils 13.5 H Absolute Lymphocytes 1.5 Absolute Monocytes 1.3 Absolute Eosinophils 0.2 Absolute Basophils 0.0 Sodium Potassium Chloride Carbon Dioxide Anion Gap BUN Creatinine Est GFR ( Amer) Est GFR (Non-Af Amer) Glucose Uric Acid Calcium Total Bilirubin AST ALT Alkaline Phosphatase Total Protein Albumin Urine Color YELLOW Urine Appearance CLOUDY Urine pH 7.0 Ur Specific [place] 1.010 Urine Protein NEGATIVE Urine Glucose (UA) NEGATIVE Urine Ketones NEGATIVE Urine Blood NEGATIVE Urine Nitrite NEGATIVE Ur Leukocyte Esterase TRACE H Urine WBC (Auto) 3 Urine RBC (Auto) 1 Blood Type O POSITIVE Antibody Screen NEGATIVE 05/02/16 05/03/16 11:33 06:53 WBC 17.4 H RBC 3.73 Hgb 9.4 L Hct 29.7 L MCV 80 MCH 25.4 L MCHC 31.8 L RDW 14.8 H Plt Count 229 Seg Neutrophils % Lymphocytes % Monocytes % Eosinophils % Basophils % Absolute Neutrophils Absolute Lymphocytes Absolute Monocytes Absolute Eosinophils Absolute Basophils Sodium 137.1 Potassium 4.3 Chloride 105 Carbon Dioxide 21 L Anion Gap 11 BUN 8 Creatinine 0.54 Est GFR ( Amer) > 60 Est GFR (Non-Af Amer) > 60 Glucose 78 Uric Acid 3.9 Calcium 9.7 Total Bilirubin 0.4 AST 16 ALT 28 Alkaline Phosphatase 181 H Total Protein 6.4 Albumin 3.2 L Urine Color Urine Appearance Urine pH Ur Specific [place] Urine Protein Urine Glucose (UA) Urine Ketones Urine Blood Urine Nitrite Ur Leukocyte Esterase Urine WBC (Auto) Urine RBC (Auto) Blood Type Antibody Screen Assessment and Plan(PN) - Assessment and Plan (1) Gestational HTN Is this a current diagnosis for this admission?: Yes (2) Personal history of supraventricular tachycardia Is this a current diagnosis for this admission?: Yes (3) Delivery normal Is this a current diagnosis for this admission?: Yes (4) Is this a current diagnosis for this admission?: Yes
[2016-05-03] MEDS: PRENATAL VITAMIN W-O CA NO5/FE FUMARATE/FA CAPSULE PO SCH (09:31)
[2016-05-03] MEDS: DOCUSATE SODIUM 100 MG CAPSULE PO SCH ×2 (09:31→18:07)
[2016-05-03] MEDS: FERROUS SULFATE 325 MG TABLET PO SCH ×2 (09:31→18:06)
[2016-05-03] MEDS: SENNOSIDES/DOCUSATE 8.6-50 MG 1 EACH TABLET PO SCH (09:31)
--- NOTE | 2016-05-03 18:00 | L&D Current Admission ---
Current Admit Datetime Report Generated by CPN: 05/03/2016 18:00 ADMISSION INFORMATION Current Admit Date/Time: 05/02/2016 11:30 (05/02/2016 10:51:Thor Lockett RN) Reason for Admission: Induction of Labor (05/02/2016 10:51:Thor Lockett RN) Chief Complaint: Scheduled Induction of Labor (05/02/2016 10:51:Thor Lockett RN) Medications During : Ferrous Sulfate (Iron); Acetaminophen (Tylenol) (05/02/2016 10:51:Thor Lockett RN) Meds During -Oth: Aspirin, Propranalol, Phenergan, Fiorcet, PNV (05/02/2016 10:51:Thor Lockett RN) EGA per Dates: 37.1 (05/02/2016 10:51:QS system process) Method of Arrival: Ambulatory (05/02/2016 10:51:Thor Lockett RN) Admitted From: Dr. Office (05/02/2016 10:51:Thor Lockett RN) Reason for Induction: Gestational Hypertension (05/02/2016 10:51:Thor Lockett RN) Records Available: Yes (05/02/2016 10:51:Thor Lockett RN) General Admission Information: Reviewed; Updated; Confirmed (05/02/2016 10:51:Thor Lockett RN) General Admission Reviewed By: Patrick Lockett RN (05/02/2016 10:51:Thor Lockett RN) BELONGINGS/ADVANCED DIRECTIVES Disposition of Belongings: Kept with Patient (05/02/2016 10:51:Thor Lockett RN) Comments Regarding Disposition: See [facility] belongings form filled out by patient (05/02/2016 10:51:Thor Lockett RN) Advance Direct for Healthcare: No, and Wants No Information (05/02/2016 10:51:Thor Lockett RN) Durable Power of Sales Representative Supervisor: No (05/02/2016 10:51:Thor Lockett RN) Living Will: No (05/02/2016 10:51:Thor Lockett RN) Organ Donor: Yes (05/02/2016 10:51:Thor Lockett RN) Pt Rights Information Given: Yes (05/02/2016 10:51:Thor Lockett RN) Pt Understands Pt Rights: Yes (05/02/2016 10:51:Thor Lockett RN) LEARNING ASSESSMENT Knowledge Level: Understands L_D Process (05/02/2016 10:51:Thor Lockett RN) Barriers to Learning: None (05/02/2016 10:51:Thor Lockett RN) Learning Readiness: Motivated (05/02/2016 10:51:Thor Lockett RN) Learns Best By: 1 to 1 Instruction; Demonstration (05/02/2016 10:51:Thor Lockett RN) Learning Needs: Labor and Delivery Process; Pain Management; Symptoms to Report; Treatment Plan; Medication; Diagnosis (05/02/2016 10:51:Thor Lockett RN) DOMESTIC VIOLANCE SCREENING Dom Viol Threatened/Hurt: No (05/02/2016 10:51:Thor Lockett RN) Hx of Abuse/Neglect past 2yrs: No (05/02/2016 10:51:Thor Lockett RN) Feel Unsafe Going Home: No (05/02/2016 10:51:Thor Lockett RN) Addt'l Observ Indicating Abuse: No (05/02/2016 10:51:Thor Lockett RN) Reason Unable to Complete Screen: N/A, Screen Completed (05/02/2016 10:51:Thor Lockett RN) Considered Personal Harm/Suicide: No (05/02/2016 10:51:Thor Lockett RN) NUTRITIONAL/FUNCTIONAL SCREENING Problem with Appetite >5 Days: No (05/02/2016 10:51:Thor Lockett RN) Chew/Swallow Difficulties: No (05/02/2016 10:51:Thor Lockett RN) Inappropriate Wt Gain/Loss: No (05/02/2016 10:51:Thor Lockett RN) Presence Skin Breakdown/Ulcer: No (05/02/2016 10:51:Thor Lockett RN) Special Diet: No (05/02/2016 10:51:Thor Lockett RN) Pt Requests Quality Assurance Manager Visit: No (05/02/2016 10:51:Thor Lockett RN) Hx of Any of the Following?: N/A (05/02/2016 10:51:Thor Lockett RN) New Diagnosis of: N/A (05/02/2016 10:51:Thor Lockett RN) Requires Assist w/Ambulation: No (05/02/2016 10:51:Thor Lockett RN) Uses Assist Device to Ambulate: No (05/02/2016 10:51:Thor Lockett RN) Pt Requires Help w/ADL's: No (05/02/2016 10:51:Thor Lockett RN)
--- NOTE | 2016-05-03 18:00 | L&D General Admission ---
General Admit Datetime Report Generated by CPN: 05/03/2016 18:00 INFORMATION Patient Age: 20 (02/13/2016 19:05:QS system process) EDC: 05/22/2016 00:00 (02/13/2016 19:18:Ana Saravia RN) : 2 (02/13/2016 19:18:Shaniqua Lorenzo RN) Para: 1 (04/30/2016 16:50:Kirti Ingram RN) Term: 1 (02/13/2016 19:18:Latisha Ho RN) : 1 (02/13/2016 19:18:Shaniqua Lorenzo RN) Spontaneous Abortions: 0 (02/13/2016 19:18:Latisha Ho RN) Induced Abortions: 0 (02/13/2016 19:18:Latisha Ho RN) Livin (02/13/2016 19:18:Latisha Ho RN) Cesareans: 0 (02/13/2016 19:18:Latisha Ho RN) VBACs: 0 (02/13/2016 19:18:Latisha Ho RN) Ectopic: 0 (02/13/2016 19:18:Latisha Ho RN) Multiple Births: 0 (02/13/2016 19:18:Latisha Ho RN) Baby, Number in Womb: 1 (04/30/2016 16:50:Kirti Ingram RN) CARE Primary Product Craftsman: [facility] (02/13/2016 19:18:Shaniqua Lorenzo RN) Adequate Care: Yes (02/13/2016 19:18:Shaniqua Lorenzo RN) Prepregnancy Weight (lb): 150 (02/13/2016 19:18:Vira Herrera RN) Prepregnancy Weight (kg): 68.2 (02/13/2016 19:18:QS system process) Height (in): 64 (05/03/2016 08:47:QS system process) ALLERGIES Medication Allergy: Yes (02/13/2016 19:18:Shaniqua Lorenzo RN) Medication Allergies: ondansetron (05/02/2016) (05/02/2016 10:40:QS system process) Latex Allergy: No Latex Allergies (02/13/2016 19:18:Shaniqua Lorenzo RN) Food Allergies: NA (02/13/2016 19:18:Shaniqua Lorenzo RN) Environmental Allergies: NA (02/13/2016 19:18:Shaniqua Lorenzo RN) COMMUNICATION Primary Language: Chinese (02/13/2016 19:18:Shaniqua Lorenzo RN) Medical Tx Preferred Language: Chinese (02/13/2016 19:18:Shaniqua Lorenzo RN) Communication Barrier(s): None (02/13/2016 19:18:Shaniqua Lorenzo RN) DEMOGRAPHICS Address: [address] [place] [id number] (02/13/2016 19:05:QS system process) Zipcode: [address] (02/13/2016 19:05:QS system process) Home (02/13/2016 19:05:QS system process) SSN: [id number] (02/13/2016 19:05:QS system process) Next of Kin Name: NEO GARCÍA (02/13/2016 19:05:QS system process) Next of Kin (04/16/2016 13:53:QS system process) Next of Kin Relationship: SPO (02/13/2016 19:05:QS system process) Date of : 1995 (02/13/2016 19:05:QS system process) Marital Status: (04/08/2016 18:47:QS system process) Sex: Female (02/13/2016 19:05:QS system process) Race: (02/13/2016 19:05:QS system process) Ethnicity: Non- or (02/13/2016 19:05:QS system process) Mormonism: None (02/13/2016 19:05:QS system process) DRUG AND ALCOHOL USE Alcohol: No (02/13/2016 19:18:Shaniqua Lorenzo RN) Cigarettes: Current Some Day Smoker. [id number] (02/13/2016 19:18:Shaniqua Lorenzo RN) Marijuana: No (02/13/2016 19:18:Shaniqua Lorenzo RN) Cocaine: No (02/13/2016 19:18:Shaniqua Lorenzo RN) Other Illicit Drugs: No (02/13/2016 19:18:Shaniqua Lorenzo RN) VACCINE HISTORY Influenza Vaccine: Yes (02/13/2016 19:18:Shaniqua Lorenzo RN) Influenza Date: 01/31/2016 (02/13/2016 19:18:Latisha Ho RN) Pneumococcal Vaccine: No (02/13/2016 19:18:Shaniqua Lorenzo RN) Tetanus Vaccine: Yes (02/13/2016 19:18:Shaniqua Lorenzo RN) Tdap Date: 2015 (02/13/2016 19:18:Shaniqua Lorenzo RN) Hepatitis B Vaccine: Yes (02/13/2016 19:18:Shaniqua Lorenzo RN) Narrative Writer: [facility] (02/13/2016 19:18:Shaniqua Lorenzo RN) Feeding Preference: Both (02/13/2016 19:18:Shaniqua Lorenzo RN) Benefit of Breast Feed Discussed: Yes (02/13/2016 19:18:Shaniqua Lorenzo RN) Circumcision: Yes (02/13/2016 19:18:Shaniqua Lorenzo RN) Classes Attended: No (02/13/2016 19:18:Shaniqua Lorenzo RN) Tubal Ligation: No (02/13/2016 19:18:Shaniqua Lorenzo RN) Tubal Authorization Signed: N/A (02/13/2016 19:18:Shaniqua Lorenzo RN) Consent: N/A (02/13/2016 19:18:Shaniqua Lorenzo RN) Consent Signed: N/A (02/13/2016 19:18:Shaniqua Lorenzo RN) Pain Management Plans: Epidural (02/13/2016 19:18:Shaniqua Lorenzo RN) Plans for Labor and Delivery: None (02/13/2016 19:18:Shaniqua Lorenzo RN) Support Person: Neo García (02/13/2016 19:18:Shaniqua Lorenzo RN) Support Person Relationship: (02/13/2016 19:18:Shaniqua Lorenzo RN) Cultural/Spritual Practice: No (02/13/2016 19:18:Shaniqua Lorenzo RN) Spir/Cult Dietary Needs: No (02/13/2016 19:18:Shaniqua Lorenzo RN) LIVING SITUATION/DISCHARGE PLAN Living Arrangements: House (02/13/2016 19:18:Shaniqua Lorenzo RN) Adequate Access to:: Electric; Heat; Refrigeration; Plumbing/Running water; Phone; Transportation (02/13/2016 19:18:Shaniqua Lorenzo RN) WIC Program: Ban (02/13/2016 19:18:Shaniqua Lorenzo RN) Discharge Mineral Surveying Technician Person: Neo García (02/13/2016 19:18:Shaniqua Lorenzo RN) Person to Help after Discharge: Neo García (02/13/2016 19:18:Shaniqua Lorenzo RN) Currently Using Commun Resources: No (02/13/2016 19:18:Shaniqua Lorenzo RN) Outside Agency/Tractor Trailer Truck Driver: No (02/13/2016 19:18:Shaniqua Lorenzo RN) Car Seat for Discharge: Yes (02/13/2016 19:18:Shaniqua Lorenzo RN) Adoption Requested: No (02/13/2016 19:18:Shaniqua Lorenzo RN) Pt Contact w/ Post : N/A (02/13/2016 19:18:Shaniqua Lorenzo RN) LABS Blood Type: O Positive (02/13/2016 19:18:Latisha Ho RN) Antibody Screen: Negative (02/13/2016 19:18:Latisha Ho RN) Rho(G) this : Not Applicable (02/13/2016 19:18:Latisha Ho RN) Hemoglobin: 9.4 L (05/03/2016 06:53:QS system process) Hematocrit: 29.7 L (05/03/2016 06:53:QS system process) MCV: 80 (05/03/2016 06:53:QS system process) Group Beta Strep: Negative (02/13/2016 19:18:Thor Lockett RN) Gonorrhea: Negative (02/13/2016 19:18:Thor Lockett RN) Chlamydia: Negative (02/13/2016 19:18:Thor Lockett RN) RPR/VDRL: Nonreactive (02/13/2016 19:18:Latisha Ho RN) HIV Results: Negative (02/13/2016 19:18:Latisha Ho RN) Hepatitis B: Negative (02/13/2016 19:18:Latisha Ho RN) Rubella: Immune (02/13/2016 19:18:Latisha Ho RN) OB/PREVIOUS HISTORY Previous Procedures: Ultrasound; NST (02/13/2016 19:18:Shaniqua Lorenzo RN) Current Procedures: Ultrasound (02/13/2016 19:18:Shaniqua Lorenzo RN) History of Previous : No (02/13/2016 19:18:Shaniqua Lorenzo RN) History of Gestational Diabetes: No (02/13/2016 19:18:Shaniqua Lorenzo RN) History of PIH: Yes (02/13/2016 19:18:Shaniqua Lorenzo RN) History of Incompetent Cervix: No (02/13/2016 19:18:Shaniqua Lorenzo RN) History of Placenta Previa/Abrup: No (02/13/2016 19:18:Shaniqua Lorenzo RN) History of Macrosomia: No (02/13/2016 19:18:Shaniqua Lorenzo RN) History of IUGR: No (02/13/2016 19:18:Shaniqua Lorenzo RN) History of Hemorrhage: No (02/13/2016 19:18:Shaniqua Lorenzo RN) History of Loss/Stillborn: No (02/13/2016 19:18:Shaniqua Lorenzo RN) History of : No (02/13/2016 19:18:Shaniqua Lorenzo RN) History of D (Rh) Sensitization: No (02/13/2016 19:18:Shaniqua Lorenzo RN) History Recurrent Loss/Stillborn: No (02/13/2016 19:18:Shaniqua Lorenzo RN) History Depression/PP Depression: No (02/13/2016 19:18:Shaniqua Lorenzo RN) History of Uterine Anomaly/FRAN: No (02/13/2016 19:18:Shaniqua Lorenzo RN) History of Infertility: No (02/13/2016 19:18:Shaniqua Lorenzo RN) History of ART Treatment: No (02/13/2016 19:18:Shaniqua Lorenzo RN) History of FRAN: No (02/13/2016 19:18:Shaniqua Lorenzo RN) Comments Obstetrical History: g1- 06/2013 baby boy 6lb 9oz pre-e pt had baby at "almost 36 weeks" g2- current , pre e, was on labetelol stopped in first trimester, has been taking baby asprin (02/13/2016 19:18:Ana Saravia RN) MEDICAL HISTORY Med Hx Diabetes: No (02/13/2016 19:18:Shaniqua Lorenzo RN) Med Hx Hypertension: No (02/13/2016 19:18:Shaniqua Lorenzo RN) Med Hx Heart Disease: Yes (02/13/2016 19:18:Shaniqua Lorenzo RN) Med Hx Autoimmune Disorder: No (02/13/2016 19:18:Shaniqua Lorenzo RN) Med Hx Kidney Disease/UTI: No (02/13/2016 19:18:Shaniqua Lorenzo RN) Med Hx Neurologic/Epilepsy: No (02/13/2016 19:18:Shaniqua Lorenzo RN) Med Hx Psychiatric Disorders: No (02/13/2016 19:18:Shaniqua Lorenzo RN) Med Hx Hepatitis/Liver Disease: No (02/13/2016 19:18:Shaniqua Lorenzo RN) Med Hx Varicosities/Phlebitis: No (02/13/2016 19:18:Shaniqua Lorenzo RN) Med Hx Thyroid Dysfunction: No (02/13/2016 19:18:Shaniqua Lorenzo RN) Med Hx Trauma/Violence: No (02/13/2016 19:18:Shaniqua Lorenzo RN) Med Hx Blood Transfusion: No (02/13/2016 19:18:Shaniqua Lorenzo RN) Med Hx Pulmonary (Asthma,TB): No (02/13/2016 19:18:Shaniqua Lorenzo RN) Med Hx Breast: No (02/13/2016 19:18:Shaniqua Lorenzo RN) Med Hx BRICK CARRIER Surgery: No (02/13/2016 19:18:Shaniqua Lorenzo RN) Med Hx Hospitalization/Surgery: No (02/13/2016 19:18:Shaniqua Lorenzo RN) Med Hx Anesthetic Complications: No (02/13/2016 19:18:Shaniqua Lorenzo RN) Med Hx Abnormal Pap Smear: No (02/13/2016 19:18:Shaniqua Lorenzo RN) Other Medical Diseases: No (02/13/2016 19:18:Shaniqua Lorenzo RN) Med Hx Significant Family Hx: No (02/13/2016 19:18:Shaniqua Lorenzo RN) Details of Med/Surg Hx: Headaches, Pre E, pt states she has a heart condition but does not know name and was taking beta blockers before questionable SVT. (02/13/2016 19:18:Shaniqua Lorenzo RN) INFECTIOUS HISTORY Inf Hx Gonorrhea: No (02/13/2016 19:18:Shaniqua Lorenzo RN) Inf Hx Chlamydia: No (02/13/2016 19:18:Shaniqua Lorenzo RN) Inf Hx Syphilis: No (02/13/2016 19:18:Shaniqua Lorenzo RN) Inf Hx HIV/AIDS: No (02/13/2016 19:18:Shaniqua Lorenzo RN) Inf Hx Human Papilloma Virus: No (02/13/2016 19:18:Shaniqua Lorenzo RN) Inf Hx Pt/Partner Genital Herpes: No (02/13/2016 19:18:Shaniqua Lorenzo RN) Inf Hx Tuberculosis/Exposure: No (02/13/2016 19:18:Shaniqua Lorenzo RN) Inf Hx Hepatitis B,C: No (02/13/2016 19:18:Shaniqua Lorenzo RN) Inf Hx Rash or Viral Illness: No (02/13/2016 19:18:Shaniqua Lorenzo RN) GENETIC HISTORY Gen Hx Age >=35 at ALDO: No (02/13/2016 19:18:Shaniqua Lorenzo RN) Gen Hx Thalassemia: No (02/13/2016 19:18:Shaniqua Lorenzo RN) Gen Hx Congenital Heart Defect: No (02/13/2016 19:18:Shaniqua Lorenzo RN) Gen Hx Neural Tube Defect: No (02/13/2016 19:18:Shaniqua Lorenzo RN) Gen Hx Down's Syndrome: No (02/13/2016 19:18:Shaniqua Lorenzo RN) Gen Hx Chuy-Sachs: No (02/13/2016 19:18:Shaniqua Lorenzo RN) Gen Hx Jd: No (02/13/2016 19:18:Shaniqua Lorenzo RN) Gen Hx Familial Dysautonomia: No (02/13/2016 19:18:Shaniqua Lorenzo RN) Gen Hx Sickle Cell Disease/Trait: No (02/13/2016 19:18:Shaniqua Lorenzo RN) Gen Hx Hemophilia/Blood Disorder: No (02/13/2016 19:18:Shaniqua Lorenzo RN) Gen Hx Muscular Dystrophy: No (02/13/2016 19:18:Shaniqua Lorenzo RN) Gen Hx Cystic Fibrosis: No (02/13/2016 19:18:Shaniqua Lorenzo RN) Gen Hx Huntingtons Chorea: No (02/13/2016 19:18:Shaniqua Lorenzo RN) Gen Hx Mental Retardation/Autism: No (02/13/2016 19:18:Shaniqua Lorenzo RN) Gen Hx Tested for Fragile X: No (02/13/2016 19:18:Shaniqua Lorenzo RN) Gen Hx Other Inher/Chromosomal: No (02/13/2016 19:18:Shaniqua Lorenzo RN) Gen Hx Maternal Metabolic DO: No (02/13/2016 19:18:Shaniqua Lorenzo RN) Gen Hx Pt Father or FOB Defect: No (02/13/2016 19:18:Shaniqua Lorenzo RN) Gen Hx Other Genetic History: No (02/13/2016 19:18:Shaniqua Lorenzo RN) Gen Hx Drugs/Meds since LMP: No (02/13/2016 19:18:Shaniqua Lorenzo RN)
--- NOTE | 2016-05-03 18:15 | L&D Care Plan ---
LD CARE PLANS Datetime Report Generated by CPN: 05/03/2016 18:15 Datetime: 05/02/2016 12:16 State: Risk For (Thor Lockett RN) Related To: Labor and Delivery Process; Post (Thor Lockett RN) Goal(s): Patients Pain will be Assessed and Managed; Patient will Verbalize Adequate Relief of Pain or the Ability to [place] with Current Pain (Thor Lockett RN) Interventions: Assess Pain Severity on Scale of 0 (None) to 5 (Severe); Assess Type, Location and Intensity of Pain Each Time Client Reports Discomfort and Notify Provider if Unusal Pain Develops; Encourage Proper Breathing and Relaxation Techniques; Offer Alternatives Such as Repositioning, Calm Environment, Massages, Diversional Activities, Ice Pack, Splinting, and Ambulation; Administer Analgesics as Ordered; Assist with Epidural Placement as Appropriate; Evaluate Therapeutic Effectiveness of Medication and Treatments (Thor Lockett RN) Outcome: Patient will Report Absence or Relief of Pain Consistent with Established Pain Goal (Thor Lockett RN) Status: Ongoing (Thor Lockett RN) Outcome: Patient will have a Decrease in Signs and Symptoms of Discomfort (Thor Lockett RN) Status: Ongoing (Thor Lockett RN) Outcome: Pain will be Controlled During Procedures (Thor Lockett RN) Status: Ongoing (Thor Lockett RN) State: Risk For (Thor Lockett RN) Related To: Labor and Delivery Process (Thor Lockett RN) Goal(s): Patient will have Decreased Anxiety and be able to Function at Acceptable Levels (Thor Lockett RN) Interventions: Assess Verbal and Nonverbal Behavioral Indicators of Anxiety; Assist Patient to Identify and Verbalize Symptoms of Anxiety; Identify and Demonstrate Techniques to Control Anxiety; Assist Patient with Coping Mechanisms to Manage Anxiety; Explain to Patient, Using a Calm Reassuring Approach and Nonmedical Terms, All Activities, Procedures, and Concerns; Instruct Patient and Family about Post Discharge Care, Limitations, Symptoms to Report and Resources Available (Thor Lockett RN) Outcome: Patient will Identify, Verbalize and Demonstrate Techniques to Control Anxiety (Thor Lockett RN) Status: Ongoing (Thor Lockett RN) Outcome: Patient's Posture, Facial Expressions, Gestures and Activity Level will Reflect Decreased Anxiety (Thor Lockett RN) Status: Ongoing (Thor Lockett RN) Outcome: Patient will Verbalize a Sense of Control and/or Acceptance of the Situation (Thor Lockett RN) Status: Ongoing (Thor Lockett RN) Outcome: Patient will Identify and Utilize Support Person (Thor Lockett RN) Status: Ongoing (Thor Lockett RN) State: Risk For (Thor Lockett RN) Related To: Labor and Delivery Process (Thor Lockett RN) Goal(s): Patient will Accurately Verbalize Understanding of Plan of Care and Treatment; Patient and Family will Accurately Verbalize Understanding of the Disease Process (Thor Lockett RN) Interventions: Assess Motivation and Willingness of Patient/Family to Learn; Assess Preferred Learning Mode: One to One Instruction, Reading, Videos, Group Discussion or Demonstration; Assess Barriers to Learning: Pain, Emotional State, Language Barrier, Cognitive Impairment, Visual or Hearing Deficits; Assess Patient and Family Knowledge of Disease Process, Medications and Treatment; Discuss Therapy and/or Treatment Options, Describe Rationale Behind Management, Therapy and Treatment Recommendations; Instruct Patient and Family on Signs and Symptoms to Report; Instruct Patient and Family on Medication Effects and Side Effects; Provide Appropriate and Timely Education Using Multiple Techniques; Provide Patient and Family with Support Group Information and Resources; Give Clear and Thorough Explanations and Demonstrations (Thor Lockett RN) Outcome: Patient and Family will Verbalize Understanding of Condition, Treatment and Signs and Symptoms to Report (Thor Lockett RN) Status: Ongoing (Thor Lockett RN) Outcome: Patient will Identify Perceived Learning Needs and Express Motivation to Learn (Thor Lockett RN) Status: Ongoing (Thor Lockett RN) Outcome: Patient will Verbalize Understanding of Desired Content, and/or Performs Desired Skill Prior to Discharge (Thor Lockett RN) Status: Ongoing (Thor Lockett RN) State: Risk For (Thor Lockett RN) Related To: Invasive Procedures (Thor Lockett RN) Goal(s): The Patient will be Free of Infection, Vital Signs Stable and Lab Work within Normal Parameters (Thor Lockett RN) Interventions: Instruct and Reinforce Proper Handwashing, Hygiene, and Care Techniques to Patient and Family; Monitor Vital Signs; Monitor Patient for the Following Signs of Infection: Fever, Abdominal Tenderness, Unusual Discharge; Monitor Aminiotic Fluid, Urine and Lochia for Color and Odor; Observe Wounds, Incisions and Invasive Line Sites for Redness, Drainage and Edema; Assess IV Sites per Hospital Policy; Monitor Lab and Test Results and Notify Provider of Abnormal Findings; Assess Nutritional Status and Promote Good Nutrition (Thor Lockett RN) Outcome: Patient will Remain Free of Infection (Thor Lockett RN) Status: Ongoing (Thor Lockett RN) Outcome: Infection will be Recognized Early to Allow for Prompt Treatment (Thor Lockett RN) Status: Ongoing (Thor Lockett RN) Outcome: Patient will have Vital Signs Within Expected Range (Thor Lockett RN) Status: Ongoing (Thor Lockett RN) State: Risk For (Thor Lockett RN) Related To: Labor and Delivery Process (Thor Lockett RN) Goal(s): Patient will Remain Free from Injury (Thor Lockett RN) Interventions: Monitoring as per Hospital Protocol; Assess Neurological Status; Perform Risk Assessment of Patients with Induction and ; Perform Fall Risk Assessment and Prevention per Hospital Protocol; Perform DVT Risk Assessment and Prophylaxis per Hospital Protocol; Ensure that Oxygen, Suction, and Resuscitation Medications and Equipment are Readily Available; Confirm Patient ID Prior to Procedure(s) and Medication Administration per Hospital Policy (Thor Lockett RN) Outcome: Successful Fall Risk Prevention (Thor Lockett RN) Status: Ongoing (Thor Lockett RN) Outcome: Patient will Deliver Infant without Adverse Sequela (Thor Lockett RN) Status: Ongoing (Thor Lockett RN) Outcome: Patient's Neurological Status will Remain Stable (Thor Lockett RN) Status: Ongoing (Thor Lockett RN) State: Risk For (Thor Lockett RN) Related To: Vaginal Delivery; Invasive Procedures (Thor Lockett RN) Goal(s): Patient will Maintain Optimal Skin Integrity, Free of Breakdown, Injury or Infection (Thor Lockett RN) Interventions: Complete Screening for Pressure Ulcer Risk and Initiate Protocol per Hospital Policy; Monitor Site of Skin Impairment for Color Changes, Redness, Swelling, Warmth, Pain or Other Signs of Infection; Encourage and Assist with Position Changes; Monitor Patient's Mobility Status; Provide Adequate Nutrition and Fluids; Teach Patient Appropriate Hygienic Care; Teach Patient/Family Skin Care Management (Thor Lockett RN) Outcome: Patient will not have Evidence of Injury Such as Skin Breakdown, Scrapes, Cuts, or Bruising (Thor Lockett RN) Status: Ongoing (Thor Lockett RN) Outcome: Patient will Report Any Altered Sensation or Pain at Site of Skin Impairment (Thor Lockett RN) Status: Ongoing (Thor Lockett RN) Outcome: Patients Incisions and Wounds will be without Signs or Symptoms of Infection (Thor Lockett RN) Status: Ongoing (Thor Lockett RN) Outcome: Patient will Demonstrate Understanding of Plan to Heal Skin and Prevent Reinjury and Verbalize Risk Factors (Thor Lockett RN) Status: Ongoing (Thor Lockett RN)
[2016-05-04] MEDS: IBUPROFEN 800 MG TABLET PO SCH (05:12)
--- NOTE | 2016-05-04 06:01 | L&D Current Admission ---
Current Admit Datetime Report Generated by CPN: 05/04/2016 06:00 ADMISSION INFORMATION Current Admit Date/Time: 05/02/2016 11:30 (05/02/2016 10:51:Thor Lockett RN) Reason for Admission: Induction of Labor (05/02/2016 10:51:Thor Lockett RN) Chief Complaint: Scheduled Induction of Labor (05/02/2016 10:51:Thor Lockett RN) Medications During : Ferrous Sulfate (Iron); Acetaminophen (Tylenol) (05/02/2016 10:51:Thor Lockett RN) Meds During -Oth: Aspirin, Propranalol, Phenergan, Fiorcet, PNV (05/02/2016 10:51:Thor Lockett RN) EGA per Dates: 37.1 (05/02/2016 10:51:QS system process) Method of Arrival: Ambulatory (05/02/2016 10:51:Thor Lockett RN) Admitted From: Dr. Office (05/02/2016 10:51:Thor Lockett RN) Reason for Induction: Gestational Hypertension (05/02/2016 10:51:Thor Lockett RN) Records Available: Yes (05/02/2016 10:51:Thor Lockett RN) General Admission Information: Reviewed; Updated; Confirmed (05/02/2016 10:51:Thor Lockett RN) General Admission Reviewed By: Patrick Lockett RN (05/02/2016 10:51:Thor Lockett RN) BELONGINGS/ADVANCED DIRECTIVES Disposition of Belongings: Kept with Patient (05/02/2016 10:51:Thor Lockett RN) Comments Regarding Disposition: See [facility] belongings form filled out by patient (05/02/2016 10:51:Thor Lockett RN) Advance Direct for Healthcare: No, and Wants No Information (05/02/2016 10:51:Thor Lockett RN) Durable Power of Summer Clerk: No (05/02/2016 10:51:Thor Lockett RN) Living Will: No (05/02/2016 10:51:Thor Lockett RN) Organ Donor: Yes (05/02/2016 10:51:Thor Lockett RN) Pt Rights Information Given: Yes (05/02/2016 10:51:Thor Lockett RN) Pt Understands Pt Rights: Yes (05/02/2016 10:51:Thor Lockett RN) LEARNING ASSESSMENT Knowledge Level: Understands L_D Process (05/02/2016 10:51:Thor Lockett RN) Barriers to Learning: None (05/02/2016 10:51:Thor Lockett RN) Learning Readiness: Motivated (05/02/2016 10:51:Thor Lockett RN) Learns Best By: 1 to 1 Instruction; Demonstration (05/02/2016 10:51:Thor Lockett RN) Learning Needs: Labor and Delivery Process; Pain Management; Symptoms to Report; Treatment Plan; Medication; Diagnosis (05/02/2016 10:51:Thor Lockett RN) DOMESTIC VIOLANCE SCREENING Dom Viol Threatened/Hurt: No (05/02/2016 10:51:Thor Lockett RN) Hx of Abuse/Neglect past 2yrs: No (05/02/2016 10:51:Thor Lockett RN) Feel Unsafe Going Home: No (05/02/2016 10:51:Thor Lockett RN) Addt'l Observ Indicating Abuse: No (05/02/2016 10:51:Thor Lockett RN) Reason Unable to Complete Screen: N/A, Screen Completed (05/02/2016 10:51:Thor Lockett RN) Considered Personal Harm/Suicide: No (05/02/2016 10:51:Thor Lockett RN) NUTRITIONAL/FUNCTIONAL SCREENING Problem with Appetite >5 Days: No (05/02/2016 10:51:Thor Lockett RN) Chew/Swallow Difficulties: No (05/02/2016 10:51:Thor Lockett RN) Inappropriate Wt Gain/Loss: No (05/02/2016 10:51:Thor Lockett RN) Presence Skin Breakdown/Ulcer: No (05/02/2016 10:51:Thor Lockett RN) Special Diet: No (05/02/2016 10:51:Thor Lockett RN) Pt Requests Test Clerk Visit: No (05/02/2016 10:51:Thor Lockett RN) Hx of Any of the Following?: N/A (05/02/2016 10:51:Thor Lockett RN) New Diagnosis of: N/A (05/02/2016 10:51:Thor Lockett RN) Requires Assist w/Ambulation: No (05/02/2016 10:51:Thor Lockett RN) Uses Assist Device to Ambulate: No (05/02/2016 10:51:Thor Lockett RN) Pt Requires Help w/ADL's: No (05/02/2016 10:51:Thor Lockett RN)
--- NOTE | 2016-05-04 06:01 | L&D General Admission ---
General Admit Datetime Report Generated by CPN: 05/04/2016 06:00 INFORMATION Patient Age: 20 (02/13/2016 19:05:QS system process) EDC: 05/22/2016 00:00 (02/13/2016 19:18:Ana Saravia RN) : 2 (02/13/2016 19:18:Shaniqua Lorenzo RN) Para: 1 (04/30/2016 16:50:Kirti Ingram RN) Term: 1 (02/13/2016 19:18:Latisha Ho RN) : 1 (02/13/2016 19:18:Shaniqua Lorenzo RN) Spontaneous Abortions: 0 (02/13/2016 19:18:Latisha Ho RN) Induced Abortions: 0 (02/13/2016 19:18:Latisha Ho RN) Livin (02/13/2016 19:18:Latisha Ho RN) Cesareans: 0 (02/13/2016 19:18:Latisha Ho RN) VBACs: 0 (02/13/2016 19:18:Latisha Ho RN) Ectopic: 0 (02/13/2016 19:18:Latisha Ho RN) Multiple Births: 0 (02/13/2016 19:18:Latisha Ho RN) Baby, Number in Womb: 1 (04/30/2016 16:50:Kirti Ingram RN) CARE Primary Tourism Radio Presenter: [facility] (02/13/2016 19:18:Shaniqua Lorenzo RN) Adequate Care: Yes (02/13/2016 19:18:Shaniqua Lorenzo RN) Prepregnancy Weight (lb): 150 (02/13/2016 19:18:Vira Herrera RN) Prepregnancy Weight (kg): 68.2 (02/13/2016 19:18:QS system process) Height (in): 64 (05/03/2016 08:47:QS system process) ALLERGIES Medication Allergy: Yes (02/13/2016 19:18:Shaniqua Lorenzo RN) Medication Allergies: ondansetron (05/02/2016) (05/02/2016 10:40:QS system process) Latex Allergy: No Latex Allergies (02/13/2016 19:18:Shaniqua Lorenzo RN) Food Allergies: NA (02/13/2016 19:18:Shaniqua Lorenzo RN) Environmental Allergies: NA (02/13/2016 19:18:Shaniqua Lorenzo RN) COMMUNICATION Primary Language: Latvian (02/13/2016 19:18:Shaniqua Lorenzo RN) Medical Tx Preferred Language: Latvian (02/13/2016 19:18:Shaniqua Lorenzo RN) Communication Barrier(s): None (02/13/2016 19:18:Shaniqua Lorenzo RN) DEMOGRAPHICS Address: [address] [place] [id number] (02/13/2016 19:05:QS system process) Zipcode: [address] (02/13/2016 19:05:QS system process) Home (02/13/2016 19:05:QS system process) SSN: [id number] (02/13/2016 19:05:QS system process) Next of Kin Name: NEO GARCÍA (02/13/2016 19:05:QS system process) Next of Kin (04/16/2016 13:53:QS system process) Next of Kin Relationship: SPO (02/13/2016 19:05:QS system process) Date of : 1995 (02/13/2016 19:05:QS system process) Marital Status: (04/08/2016 18:47:QS system process) Sex: Female (02/13/2016 19:05:QS system process) Race: (02/13/2016 19:05:QS system process) Ethnicity: Non- or (02/13/2016 19:05:QS system process) Islam: None (02/13/2016 19:05:QS system process) DRUG AND ALCOHOL USE Alcohol: No (02/13/2016 19:18:Shaniqua Lorenzo RN) Cigarettes: Current Some Day Smoker. [id number] (02/13/2016 19:18:Shaniqua Lorenzo RN) Marijuana: No (02/13/2016 19:18:Shaniqua Lorenzo RN) Cocaine: No (02/13/2016 19:18:Shaniqua Lorenzo RN) Other Illicit Drugs: No (02/13/2016 19:18:Shaniqua Lorenzo RN) VACCINE HISTORY Influenza Vaccine: Yes (02/13/2016 19:18:Shaniqua Lorenzo RN) Influenza Date: 01/31/2016 (02/13/2016 19:18:Latisha Ho RN) Pneumococcal Vaccine: No (02/13/2016 19:18:Shaniqua Lorenzo RN) Tetanus Vaccine: Yes (02/13/2016 19:18:Shaniqua Lorenzo RN) Tdap Date: 2015 (02/13/2016 19:18:Shaniqua Lorenzo RN) Hepatitis B Vaccine: Yes (02/13/2016 19:18:Shaniqua Lorenzo RN) [employer] Mechanical: [facility] (02/13/2016 19:18:Shaniqua Lorenzo RN) Feeding Preference: Both (02/13/2016 19:18:Shaniqua Lorenzo RN) Benefit of Breast Feed Discussed: Yes (02/13/2016 19:18:Shaniqua Lorenzo RN) Circumcision: Yes (02/13/2016 19:18:Shaniqua Lorenzo RN) Classes Attended: No (02/13/2016 19:18:Shaniqua Lorenzo RN) Tubal Ligation: No (02/13/2016 19:18:Shaniqua Lorenzo RN) Tubal Authorization Signed: N/A (02/13/2016 19:18:Shaniqua Lorenzo RN) Consent: N/A (02/13/2016 19:18:Shaniqua Lorenzo RN) Consent Signed: N/A (02/13/2016 19:18:Shaniqua Lorenzo RN) Pain Management Plans: Epidural (02/13/2016 19:18:Shaniqua Lorenzo RN) Plans for Labor and Delivery: None (02/13/2016 19:18:Shaniqua Lorenzo RN) Support Person: Neo García (02/13/2016 19:18:Shaniqua Lorenzo RN) Support Person Relationship: (02/13/2016 19:18:Shaniqua Lorenzo RN) Cultural/Spritual Practice: No (02/13/2016 19:18:Shaniqua Lorenzo RN) Spir/Cult Dietary Needs: No (02/13/2016 19:18:Shaniqua Lorenzo RN) LIVING SITUATION/DISCHARGE PLAN Living Arrangements: House (02/13/2016 19:18:Shaniqua Lorenzo RN) Adequate Access to:: Electric; Heat; Refrigeration; Plumbing/Running water; Phone; Transportation (02/13/2016 19:18:Shaniqua Lorenzo RN) WIC Program: Ban (02/13/2016 19:18:Shaniqua Lorenzo RN) Discharge Strip Stamp Straightener Person: Neo García (02/13/2016 19:18:Shaniqua Lorenzo RN) Person to Help after Discharge: Neo García (02/13/2016 19:18:Shaniqua Lorenzo RN) Currently Using Commun Resources: No (02/13/2016 19:18:Shaniqua Lorenzo RN) Outside Agency/Mushroom Press Operator: No (02/13/2016 19:18:Shaniqua Lorenzo RN) Car Seat for Discharge: Yes (02/13/2016 19:18:Shaniqua Lorenzo RN) Adoption Requested: No (02/13/2016 19:18:Shaniqua Lorenzo RN) Pt Contact w/ Post : N/A (02/13/2016 19:18:Shaniqua Lorenzo RN) LABS Blood Type: O Positive (02/13/2016 19:18:Latisha Ho RN) Antibody Screen: Negative (02/13/2016 19:18:Latisha Ho RN) Rho(G) this : Not Applicable (02/13/2016 19:18:Latisha Ho RN) Hemoglobin: 9.4 L (05/03/2016 06:53:QS system process) Hematocrit: 29.7 L (05/03/2016 06:53:QS system process) MCV: 80 (05/03/2016 06:53:QS system process) Group Beta Strep: Negative (02/13/2016 19:18:Thor Lockett RN) Gonorrhea: Negative (02/13/2016 19:18:Thor Lockett RN) Chlamydia: Negative (02/13/2016 19:18:Thor Lockett RN) RPR/VDRL: Nonreactive (02/13/2016 19:18:Latisha Ho RN) HIV Results: Negative (02/13/2016 19:18:Latisha Ho RN) Hepatitis B: Negative (02/13/2016 19:18:Latisha Ho RN) Rubella: Immune (02/13/2016 19:18:Latisha Ho RN) OB/PREVIOUS HISTORY Previous Procedures: Ultrasound; NST (02/13/2016 19:18:Shaniqua Lorenzo RN) Current Procedures: Ultrasound (02/13/2016 19:18:Shaniqua Lorenzo RN) History of Previous : No (02/13/2016 19:18:Shaniqua Lorenzo RN) History of Gestational Diabetes: No (02/13/2016 19:18:Shaniqua Lorenzo RN) History of PIH: Yes (02/13/2016 19:18:Shaniqua Lorenzo RN) History of Incompetent Cervix: No (02/13/2016 19:18:Shaniqua Lorenzo RN) History of Placenta Previa/Abrup: No (02/13/2016 19:18:Shaniqua Lorenzo RN) History of Macrosomia: No (02/13/2016 19:18:Shaniqua Lorenzo RN) History of IUGR: No (02/13/2016 19:18:Shaniqua Lorenzo RN) History of Hemorrhage: No (02/13/2016 19:18:Shaniqua Lorenzo RN) History of Loss/Stillborn: No (02/13/2016 19:18:Shaniqua Lorenzo RN) History of : No (02/13/2016 19:18:Shaniqua Lorenzo RN) History of D (Rh) Sensitization: No (02/13/2016 19:18:Shaniqua Lorenzo RN) History Recurrent Loss/Stillborn: No (02/13/2016 19:18:Shaniqua Lorenzo RN) History Depression/PP Depression: No (02/13/2016 19:18:Shaniqua Lorenzo RN) History of Uterine Anomaly/FRAN: No (02/13/2016 19:18:Shaniqua Lorenzo RN) History of Infertility: No (02/13/2016 19:18:Shaniqua Lorenzo RN) History of ART Treatment: No (02/13/2016 19:18:Shaniqua Lorenzo RN) History of FRAN: No (02/13/2016 19:18:Shaniqua Lorenzo RN) Comments Obstetrical History: g1- 06/2013 baby boy 6lb 9oz pre-e pt had baby at "almost 36 weeks" g2- current , pre e, was on labetelol stopped in first trimester, has been taking baby asprin (02/13/2016 19:18:Ana Saravia RN) MEDICAL HISTORY Med Hx Diabetes: No (02/13/2016 19:18:Shaniqua Lorenzo RN) Med Hx Hypertension: No (02/13/2016 19:18:Shaniqua Lorenzo RN) Med Hx Heart Disease: Yes (02/13/2016 19:18:Shaniqua Lorenzo RN) Med Hx Autoimmune Disorder: No (02/13/2016 19:18:Shaniqua Lorenzo RN) Med Hx Kidney Disease/UTI: No (02/13/2016 19:18:Shaniqua Lorenzo RN) Med Hx Neurologic/Epilepsy: No (02/13/2016 19:18:Shaniqua Lorenzo RN) Med Hx Psychiatric Disorders: No (02/13/2016 19:18:Shaniqua Lorenzo RN) Med Hx Hepatitis/Liver Disease: No (02/13/2016 19:18:Shaniqua Lorenzo RN) Med Hx Varicosities/Phlebitis: No (02/13/2016 19:18:Shaniqua Lorenzo RN) Med Hx Thyroid Dysfunction: No (02/13/2016 19:18:Shaniqua Lorenzo RN) Med Hx Trauma/Violence: No (02/13/2016 19:18:Shaniqua Lorenzo RN) Med Hx Blood Transfusion: No (02/13/2016 19:18:Shaniqua Lorenzo RN) Med Hx Pulmonary (Asthma,TB): No (02/13/2016 19:18:Shaniqua Lorenzo RN) Med Hx Breast: No (02/13/2016 19:18:Shaniqua Lorenzo RN) Med Hx BANK VAULT CLERK Surgery: No (02/13/2016 19:18:Shaniqua Lorenzo RN) Med Hx Hospitalization/Surgery: No (02/13/2016 19:18:Shaniqua Lorenzo RN) Med Hx Anesthetic Complications: No (02/13/2016 19:18:Shaniqua Lorenzo RN) Med Hx Abnormal Pap Smear: No (02/13/2016 19:18:Shaniqua Lorenzo RN) Other Medical Diseases: No (02/13/2016 19:18:Shaniqua Lorenzo RN) Med Hx Significant Family Hx: No (02/13/2016 19:18:Shaniqua Lorenzo RN) Details of Med/Surg Hx: Headaches, Pre E, pt states she has a heart condition but does not know name and was taking beta blockers before questionable SVT. (02/13/2016 19:18:Shaniqua Lorenzo RN) INFECTIOUS HISTORY Inf Hx Gonorrhea: No (02/13/2016 19:18:Shaniqua Lorenzo RN) Inf Hx Chlamydia: No (02/13/2016 19:18:Shaniqua Lorenzo RN) Inf Hx Syphilis: No (02/13/2016 19:18:Shaniqua Lorenzo RN) Inf Hx HIV/AIDS: No (02/13/2016 19:18:Shanqiua Lorenzo RN) Inf Hx Human Papilloma Virus: No (02/13/2016 19:18:Shaniqua Lorenzo RN) Inf Hx Pt/Partner Genital Herpes: No (02/13/2016 19:18:Shaniqua Lorenzo RN) Inf Hx Tuberculosis/Exposure: No (02/13/2016 19:18:Shaniqua Lorenzo RN) Inf Hx Hepatitis B,C: No (02/13/2016 19:18:Shaniqua Lorenzo RN) Inf Hx Rash or Viral Illness: No (02/13/2016 19:18:Shaniqua Lorenzo RN) GENETIC HISTORY Gen Hx Age >=35 at ALDO: No (02/13/2016 19:18:Shaniqua Lorenzo RN) Gen Hx Thalassemia: No (02/13/2016 19:18:Shaniqua Lorenzo RN) Gen Hx Congenital Heart Defect: No (02/13/2016 19:18:Shaniqua Lorenzo RN) Gen Hx Neural Tube Defect: No (02/13/2016 19:18:Shaniqua Lorenzo RN) Gen Hx Down's Syndrome: No (02/13/2016 19:18:Shaniqua Lorenzo RN) Gen Hx Chuy-Sachs: No (02/13/2016 19:18:Shaniqua Lorenzo RN) Gen Hx Jd: No (02/13/2016 19:18:Shaniqua Lorenzo RN) Gen Hx Familial Dysautonomia: No (02/13/2016 19:18:Shaniqua Lorenzo RN) Gen Hx Sickle Cell Disease/Trait: No (02/13/2016 19:18:Shaniqua Lorenzo RN) Gen Hx Hemophilia/Blood Disorder: No (02/13/2016 19:18:Shaniqua Lorenzo RN) Gen Hx Muscular Dystrophy: No (02/13/2016 19:18:Shaniqua Lorenzo RN) Gen Hx Cystic Fibrosis: No (02/13/2016 19:18:Shaniqua Lorenzo RN) Gen Hx Huntingtons Chorea: No (02/13/2016 19:18:Shaniqua Lorenzo RN) Gen Hx Mental Retardation/Autism: No (02/13/2016 19:18:Shaniqua Lorenzo RN) Gen Hx Tested for Fragile X: No (02/13/2016 19:18:Shaniqua Lorenzo RN) Gen Hx Other Inher/Chromosomal: No (02/13/2016 19:18:Shaniqua Lorenzo RN) Gen Hx Maternal Metabolic DO: No (02/13/2016 19:18:Shaniqua Lorenzo RN) Gen Hx Pt Father or FOB Defect: No (02/13/2016 19:18:Shaniqua Lorenzo RN) Gen Hx Other Genetic History: No (02/13/2016 19:18:Shaniqua Lorenzo RN) Gen Hx Drugs/Meds since LMP: No (02/13/2016 19:18:Shaniqua Lorenzo RN)
[2016-05-04 08:44] VITALS: BP 119/66
[2016-05-04 09:03] LABS: HEMATOCRIT 29.9 % (36.0-47.0); HEMOGLOBIN 9.6 g/dL (12.0-15.5); HGB HCT DIFFERENCE -1.1; MEAN CORPUSCULAR HEMOGLOBIN 25.6 pg (27.0-33.4); MEAN CORPUSCULAR HGB CONC 32.2 g/dL (32.0-36.0); MEAN CORPUSCULAR VOLUME 80 fl (80-97); RED BLOOD COUNT 3.76 10^6/uL (3.72-5.28); RED CELL DISTRIBUTION WIDTH 14.8 % (11.5-14.0); WHITE BLOOD COUNT 10.8 10^3/uL (4.0-10.5)
[2016-05-04] MEDS: DOCUSATE SODIUM 100 MG CAPSULE PO SCH (09:18)
[2016-05-04] MEDS: SENNOSIDES/DOCUSATE 8.6-50 MG 1 EACH TABLET PO SCH (09:18)
[2016-05-04] MEDS: PRENATAL VITAMIN W-O CA NO5/FE FUMARATE/FA CAPSULE PO SCH (09:18)
[2016-05-04] MEDS: FERROUS SULFATE 325 MG TABLET PO SCH (09:18)
--- NOTE | 2016-05-04 10:21 | PDOC PROGRESS REPORT ---
Subjective-OB Subjective: Post Delivery Day: 20 year old. Denies any needs at this time. Ready to go home. Physical Exam (OB) Vital Signs: Temp Pulse Resp BP Pulse Ox 97.8 F 92 16 119/66 99 05/04/16 08:25 05/04/16 08:25 05/04/16 08:25 05/04/16 07:39 05/04/16 08:25 Intake & Output 05/03/16 05/04/16 05/05/16 06:59 06:59 06:59 Weight 88.9 kg Baby 1 Male 3.374 kg - Lochia Lochia Amount: Scant < 10 ml Lochia Color: Rubra/Red - Abdomen Description: Tender, Soft, Round Hernia Present: No Bowel Sounds: Normoactive Flatus Presence: Present Stool: No Fundal Description: Firm, Midline Fundal Height: u/u - u/2 Objective-Diagnostic Laboratory: 05/04/16 08:48 05/02/16 11:33 05/04/16 08:48 WBC 10.8 H RBC 3.76 Hgb 9.6 L Hct 29.9 L MCV 80 MCH 25.6 L MCHC 32.2 RDW 14.8 H Plt Count 236 Assessment and Plan(PN) - Assessment and Plan (1) Gestational HTN Is this a current diagnosis for this admission?: Yes (2) Personal history of supraventricular tachycardia Is this a current diagnosis for this admission?: Yes (3) Delivery normal Is this a current diagnosis for this admission?: Yes (4) Is this a current diagnosis for this admission?: Yes
--- NOTE | 2016-05-04 10:39 | PDOC DISCHARGE SUMMARY ---
Final Diagnosis Discharge Date: 05/04/16 - Final Diagnosis (1) Gestational HTN Is this a current diagnosis for this admission?: Yes (2) Personal history of supraventricular tachycardia Is this a current diagnosis for this admission?: Yes (3) Delivery normal Is this a current diagnosis for this admission?: Yes (4) Is this a current diagnosis for this admission?: Yes Discharge Data - Discharge Medication Home Medications: Vit #76/Iron,Carb/FA [Pnv 29-1 Tablet] 1 tab PO DAILY 03/19/16 Propranolol HCl 80 mg PO DAILY 04/16/16 Docusate Sodium [Colace 100 mg Capsule] 100 mg PO BID #30 capsule 05/04/16 Ferrous Sulfate [Feosol 325 mg Tablet] 325 mg PO BID #60 tablet 05/04/16 Ferrous Sulfate [Iron] 325 mg PO BID #0 tablet 05/04/16 Gestational Age: 37.1 wks Reason(s) for Admission: Induction of Labor, PIH Procedures: Ultrasound Intrapartum Procedure(s): Spontaneous Vaginal Delivery - [place] Data Baby 1 Male at 1 minute: 9 at 5 minutes: 9 Weight: 3.374 kg Home with Mother: Yes Complications: No - Diagnosis Test Laboratory: Temp Pulse Resp BP Pulse Ox 97.8 F 92 16 119/66 99 05/04/16 08:25 05/04/16 08:25 05/04/16 08:25 05/04/16 07:39 05/04/16 08:25 05/02/16 05/02/16 05/03/16 10:40 11:33 06:53 RBC 4.07 3.73 Hgb 10.2 L 9.4 L Hct 33.0 L 29.7 L Urine Opiates Screen NEGATIVE 05/04/16 08:48 RBC 3.76 Hgb 9.6 L Hct 29.9 L Urine Opiates Screen - Discharge information/Instructions Discharge Activity: Activity As Tolerated, Balance Activity w/Rest, Pelvic Rest , Slowly Increase Activity, No tub bath Discharge Diet: Regular Disposition: HOME, SELF-CARE Follow up with: [facility] in: 1, Weeks
--- NOTE | 2016-05-10 16:08 | Delivery Summary ---
Del Sum A-C Datetime Report Generated by CPN: 05/10/2016 16:08 ADMISSION DATA Chief Complaint: Scheduled Induction of Labor Indication for Induction: Gest. HTN/PreEclampsia/Eclampsia Admission Impression: No Active Labor Admit Provider Comments: sent from office, has had 2 severe range pressures, admit for induction per Dr. Carias + headache, no vision changes, no epigastric pain Pre-E labs normal DELIVERY PERSONNEL Delivery Doctor:: Monae Carias MD Labor and Delivery Nurse:: Crystal [place], rail technician Nurse:: Eileen Boss, RN MATERNAL INFORMATION Delivery Anesthesia: Epidural Medications After Delivery: Pitocin Drip 20 Units/1000ml NSS Estimated Blood Loss (ml): 300 Maternal Complications: None Provider Comments: over intact perineum, no lacs. viable male infant ap 99. tight nuchal cut at perineum. spontaneous intact placenta 3vc. LABOR SUMMARY EDC: 05/22/2016 00:00 No. Babies in Womb: 1 LABOR INFORMATION Reason for Induction: Oligohydramnios Oxytocin: Induction Group B Beta Strep: Negative Steroids Given: None Reason Steroids Not Administered: Not Applicable MEMBRANES Membranes Rupture Method: Artificial Amniotic Fluid Color: Clear Amniotic Fluid Amount: Scant Amniotic Fluid Odor: Normal STAGES OF LABOR Stage 3 hr: 0 Stage 3 min: 5 VAGINAL DELIVERY Episiotomy: None Laceration Extension: N/A Laceration Type: None Laceration Repair: Not Applicable BABY A INFORMATION Infant Delivery Date/Time: 05/02/2016 19:46 Method of Delivery: Vaginal Born in Route : No : N/A Forceps: N/A Vacuum Extraction: N/A Shoulder Dystocia : No PRESENTATION/POSITION BABY A Presentation: Cephalic Cephalic Presentation: Vertex Vertex Position: Right Occipital Anterior Breech Presentation: N/A PLACENTA INFORMATION BABY A Placenta Delivery Time : 05/02/2016 19:51 Placenta Method of Delivery: Spontaneous Placenta Status: Delivered SCORES BABY A Heart Rate 1 min: >100 bpm Resp Effort 1 min: Good Cry Reflex Irritability 1 min: Cough or Sneeze or Pulls Away Muscle Tone 1 min: Active Motion Color 1 min: Body Scott, Extremities Blue Resuscitation Effort 1 min: N/A SCORE 1 MIN: 9 Heart Rate 5 min: >100 bpm Resp Effort 5 min: Good Cry Reflex Irritability 5 min: Cough or Sneeze or Pulls Away Muscle Tone 5 min: Active Motion Color 5 min: Body Scott, Extremities Blue Resuscitation Effort 5 min: N/A SCORE 5 MIN: 9 INFORMATION BABY A Gestational Age at Delivery: 37.1 Gestational Status: Early Term- 37- 38.6 Weeks Infant Outcome : Liveborn Condition : Stable Infant Sex: Male IDENTIFICATION BABY A Infant Verification Date/Time: 05/02/2016 19:58 ID Band Number: [id number] Mother's Name Verified: Yes Infant RN Verifying : R Simone, RNC Additional Verifying Personnel: [facility] WEIGHT/LENGTH BABY A Infant Birthweight (gm): 3385 Infant Weight (lb): 7 Infant Weight (oz): 7 Length (in): 19.75 (Annotations: Data stored by [facility] on behalf of user) Infant Length (cm): 50.17 CORD INFORMATION BABY A No. Cord Vessels: 3 Nuchal Cord : Around Neck x1, Tight Cord Blood Taken: Yes-For Eval (Mom's Blood Type - or O+) Suction: None ASSESSMENT BABY A Complications: None Physical Findings at Delivery: Within Normal Limits Infant Respirations: Appears Normal Skin to Skin: Yes (Annotations: Kareen Chou RN took baby to nursery for bath with FOB. ) Skin to Skin Time (min): 45 Regulatory Submissions Associate/ALS Called : No Infant Care By: Eileen Boss RN Transferred To: Remains with Mother SIGNATURES Signature: with User ID: [email or web address] : I was personally available for consultation and serving as supervising physician for the MLP.
--- NOTE | 2016-05-11 06:01 | L&D Current Admission ---
Current Admit Datetime Report Generated by CPN: 05/11/2016 06:00 ADMISSION INFORMATION Current Admit Date/Time: 05/02/2016 11:30 (05/02/2016 10:51:Thor Lockett RN) Reason for Admission: Induction of Labor (05/02/2016 10:51:Thor Lockett RN) Chief Complaint: Scheduled Induction of Labor (05/02/2016 10:51:Thor Lockett RN) Medications During : Ferrous Sulfate (Iron); Acetaminophen (Tylenol) (05/02/2016 10:51:Thor Lockett RN) Meds During -Oth: Aspirin, Propranalol, Phenergan, Fiorcet, PNV (05/02/2016 10:51:Thor Lockett RN) EGA per Dates: 37.1 (05/02/2016 10:51:QS system process) Method of Arrival: Ambulatory (05/02/2016 10:51:Thor Lockett RN) Admitted From: Dr. Office (05/02/2016 10:51:Thor Lockett RN) Reason for Induction: Gestational Hypertension (05/02/2016 10:51:Thor Lockett RN) Records Available: Yes (05/02/2016 10:51:Thor Lockett RN) General Admission Information: Reviewed; Updated; Confirmed (05/02/2016 10:51:Thor Lockett RN) General Admission Reviewed By: Patrick Lockett RN (05/02/2016 10:51:Thor Lockett RN) BELONGINGS/ADVANCED DIRECTIVES Disposition of Belongings: Kept with Patient (05/02/2016 10:51:Thor Lockett RN) Comments Regarding Disposition: See [facility] belongings form filled out by patient (05/02/2016 10:51:Thor Lockett RN) Advance Direct for Healthcare: No, and Wants No Information (05/02/2016 10:51:Thor Lockett RN) Durable Power of Brand Protection Manager: No (05/02/2016 10:51:Thor Lockett RN) Living Will: No (05/02/2016 10:51:Thor Lockett RN) Organ Donor: Yes (05/02/2016 10:51:Thor Lockett RN) Pt Rights Information Given: Yes (05/02/2016 10:51:Thor Lockett RN) Pt Understands Pt Rights: Yes (05/02/2016 10:51:Thor Lockett RN) LEARNING ASSESSMENT Knowledge Level: Understands L_D Process (05/02/2016 10:51:Thor Lockett RN) Barriers to Learning: None (05/02/2016 10:51:Thor Lockett RN) Learning Readiness: Motivated (05/02/2016 10:51:Thor Lockett RN) Learns Best By: 1 to 1 Instruction; Demonstration (05/02/2016 10:51:Thor Lockett RN) Learning Needs: Labor and Delivery Process; Pain Management; Symptoms to Report; Treatment Plan; Medication; Diagnosis (05/02/2016 10:51:Thor Lockett RN) DOMESTIC VIOLANCE SCREENING Dom Viol Threatened/Hurt: No (05/02/2016 10:51:Thor Lockett RN) Hx of Abuse/Neglect past 2yrs: No (05/02/2016 10:51:Thor Lockett RN) Feel Unsafe Going Home: No (05/02/2016 10:51:Thor Lockett RN) Addt'l Observ Indicating Abuse: No (05/02/2016 10:51:Thor Lockett RN) Reason Unable to Complete Screen: N/A, Screen Completed (05/02/2016 10:51:Thor Lockett RN) Considered Personal Harm/Suicide: No (05/02/2016 10:51:Thor Lockett RN) NUTRITIONAL/FUNCTIONAL SCREENING Problem with Appetite >5 Days: No (05/02/2016 10:51:Thor Lockett RN) Chew/Swallow Difficulties: No (05/02/2016 10:51:Thor Lockett RN) Inappropriate Wt Gain/Loss: No (05/02/2016 10:51:Thor Lockett RN) Presence Skin Breakdown/Ulcer: No (05/02/2016 10:51:Thor Lockett RN) Special Diet: No (05/02/2016 10:51:Thor Lockett RN) Pt Requests [place] Folder Visit: No (05/02/2016 10:51:Thor Lockett RN) Hx of Any of the Following?: N/A (05/02/2016 10:51:Thor Lockett RN) New Diagnosis of: N/A (05/02/2016 10:51:Thor Lockett RN) Requires Assist w/Ambulation: No (05/02/2016 10:51:Thor Lockett RN) Uses Assist Device to Ambulate: No (05/02/2016 10:51:Thor Lockett RN) Pt Requires Help w/ADL's: No (05/02/2016 10:51:Thor Locktet RN)
--- NOTE | 2016-05-11 06:01 | L&D General Admission ---
General Admit Datetime Report Generated by CPN: 05/11/2016 06:00 INFORMATION Patient Age: 20 (02/13/2016 19:05:QS system process) EDC: 05/22/2016 00:00 (02/13/2016 19:18:Ana Saravia RN) : 2 (02/13/2016 19:18:Shaniqua Lorenzo RN) Para: 1 (04/30/2016 16:50:Kirti Ingram RN) Term: 1 (02/13/2016 19:18:Latisha Ho RN) : 1 (02/13/2016 19:18:Shaniqua Lorenzo RN) Spontaneous Abortions: 0 (02/13/2016 19:18:Latisha Ho RN) Induced Abortions: 0 (02/13/2016 19:18:Latisha Ho RN) Livin (02/13/2016 19:18:Latisha Ho RN) Cesareans: 0 (02/13/2016 19:18:Latisha Ho RN) VBACs: 0 (02/13/2016 19:18:Latisha Ho RN) Ectopic: 0 (02/13/2016 19:18:Latisha Ho RN) Multiple Births: 0 (02/13/2016 19:18:Latisha Ho RN) Baby, Number in Womb: 1 (04/30/2016 16:50:Kirti Ingram RN) CARE Primary Money Examiner: [facility] (02/13/2016 19:18:Shanqiua Lorenzo RN) Adequate Care: Yes (02/13/2016 19:18:Shaniqua Lorenzo RN) Prepregnancy Weight (lb): 150 (02/13/2016 19:18:Vira Herrera RN) Prepregnancy Weight (kg): 68.2 (02/13/2016 19:18:QS system process) Height (in): 64 (05/03/2016 08:47:QS system process) ALLERGIES Medication Allergy: Yes (02/13/2016 19:18:Shaniqua Lorenzo RN) Medication Allergies: ondansetron (05/02/2016) (05/02/2016 10:40:QS system process) Latex Allergy: No Latex Allergies (02/13/2016 19:18:Shaniqua Lorenzo RN) Food Allergies: NA (02/13/2016 19:18:Shaniqua Lorenzo RN) Environmental Allergies: NA (02/13/2016 19:18:Shaniqua Lorenzo RN) COMMUNICATION Primary Language: Comoran (02/13/2016 19:18:Shaniqua Lorenzo RN) Medical Tx Preferred Language: Comoran (02/13/2016 19:18:Shaniqua Lorenzo RN) Communication Barrier(s): None (02/13/2016 19:18:Shaniqua Lorenzo RN) DEMOGRAPHICS Address: [address] [place] [id number] (02/13/2016 19:05:QS system process) Zipcode: [address] (02/13/2016 19:05:QS system process) Home (02/13/2016 19:05:QS system process) SSN: [id number] (02/13/2016 19:05:QS system process) Next of Kin Name: NEO GARCÍA (02/13/2016 19:05:QS system process) Next of Kin (04/16/2016 13:53:QS system process) Next of Kin Relationship: SPO (02/13/2016 19:05:QS system process) Date of : 1995 (02/13/2016 19:05:QS system process) Marital Status: (04/08/2016 18:47:QS system process) Sex: Female (02/13/2016 19:05:QS system process) Race: (02/13/2016 19:05:QS system process) Ethnicity: Non- or (02/13/2016 19:05:QS system process) Congregation: None (02/13/2016 19:05:QS system process) DRUG AND ALCOHOL USE Alcohol: No (02/13/2016 19:18:Shaniqua Lorenzo RN) Cigarettes: Current Some Day Smoker. [id number] (02/13/2016 19:18:Shaniqua Lorenzo RN) Marijuana: No (02/13/2016 19:18:Shaniqua Lorenzo RN) Cocaine: No (02/13/2016 19:18:Shaniqua Lorenzo RN) Other Illicit Drugs: No (02/13/2016 19:18:Shaniqua Lorenzo RN) VACCINE HISTORY Influenza Vaccine: Yes (02/13/2016 19:18:Shaniqua Lorenzo RN) Influenza Date: 01/31/2016 (02/13/2016 19:18:Latisha Ho RN) Pneumococcal Vaccine: No (02/13/2016 19:18:Shaniqua Lorenzo RN) Tetanus Vaccine: Yes (02/13/2016 19:18:Shaniqua Lorenzo RN) Tdap Date: 2015 (02/13/2016 19:18:Shaniqua Lorenzo RN) Hepatitis B Vaccine: Yes (02/13/2016 19:18:Shaniqua Lorenzo RN) Clinical Account Executive: [facility] (02/13/2016 19:18:Shaniqua Lorenzo RN) Feeding Preference: Both (02/13/2016 19:18:Shaniqua Lorenzo RN) Benefit of Breast Feed Discussed: Yes (02/13/2016 19:18:Shaniqua Lorenzo RN) Circumcision: Yes (02/13/2016 19:18:Shaniqua Lorenzo RN) Classes Attended: No (02/13/2016 19:18:Shaniqua Lorenzo RN) Tubal Ligation: No (02/13/2016 19:18:Shaniqua Lorenzo RN) Tubal Authorization Signed: N/A (02/13/2016 19:18:Shaniqua Lorenzo RN) Consent: N/A (02/13/2016 19:18:Shaniqua Lorenzo RN) Consent Signed: N/A (02/13/2016 19:18:Shaniqua Lorenzo RN) Pain Management Plans: Epidural (02/13/2016 19:18:Shaniqua Lorenzo RN) Plans for Labor and Delivery: None (02/13/2016 19:18:Shaniqua Lorenzo RN) Support Person: Neo García (02/13/2016 19:18:Shaniqua Lorenzo RN) Support Person Relationship: (02/13/2016 19:18:Shaniqua Lorenzo RN) Cultural/Spritual Practice: No (02/13/2016 19:18:Shaniqua Lorenzo RN) Spir/Cult Dietary Needs: No (02/13/2016 19:18:Shaniqua Lorenzo RN) LIVING SITUATION/DISCHARGE PLAN Living Arrangements: House (02/13/2016 19:18:Shaniqua Lorenzo RN) Adequate Access to:: Electric; Heat; Refrigeration; Plumbing/Running water; Phone; Transportation (02/13/2016 19:18:Shaniqua Lorenzo RN) WIC Program: Ban (02/13/2016 19:18:Shaniqua Lorenzo RN) Discharge Library Media Specialist Person: Neo García (02/13/2016 19:18:Shaniqua Lorenzo RN) Person to Help after Discharge: Neo García (02/13/2016 19:18:Shaniqua Lorenzo RN) Currently Using Commun Resources: No (02/13/2016 19:18:Shaniqua Lorenzo RN) Outside Agency/Engineering Professionals: No (02/13/2016 19:18:Shaniqua Lorenzo RN) Car Seat for Discharge: Yes (02/13/2016 19:18:Shaniqua Lorenzo RN) Adoption Requested: No (02/13/2016 19:18:Shaniqua Lorenzo RN) Pt Contact w/ Post : N/A (02/13/2016 19:18:Shaniqua Lorenzo RN) LABS Blood Type: O Positive (02/13/2016 19:18:Latisha Ho RN) Antibody Screen: Negative (02/13/2016 19:18:Latisha Ho RN) Rho(G) this : Not Applicable (02/13/2016 19:18:Latisha Ho RN) Hemoglobin: 9.6 L (05/04/2016 08:48:QS system process) Hematocrit: 29.9 L (05/04/2016 08:48:QS system process) MCV: 80 (05/04/2016 08:48:QS system process) Group Beta Strep: Negative (02/13/2016 19:18:Thor Lockett RN) Gonorrhea: Negative (02/13/2016 19:18:Thor Lockett RN) Chlamydia: Negative (02/13/2016 19:18:Thor Lockett RN) RPR/VDRL: Nonreactive (02/13/2016 19:18:Latisha Ho RN) HIV Results: Negative (02/13/2016 19:18:Latisha Ho RN) Hepatitis B: Negative (02/13/2016 19:18:Latisha Ho RN) Rubella: Immune (02/13/2016 19:18:Latisha Ho RN) OB/PREVIOUS HISTORY Previous Procedures: Ultrasound; NST (02/13/2016 19:18:Shaniqua Lorenzo RN) Current Procedures: Ultrasound (02/13/2016 19:18:Shaniqua Lorenzo RN) History of Previous : No (02/13/2016 19:18:Shaniqua Lorenzo RN) History of Gestational Diabetes: No (02/13/2016 19:18:Shaniqua Lorenzo RN) History of PIH: Yes (02/13/2016 19:18:Shaniqua Lorenzo RN) History of Incompetent Cervix: No (02/13/2016 19:18:Shaniqua Lorenzo RN) History of Placenta Previa/Abrup: No (02/13/2016 19:18:Shaniqua Lorenzo RN) History of Macrosomia: No (02/13/2016 19:18:Shaniqua Lorenzo RN) History of IUGR: No (02/13/2016 19:18:Shaniqua Lorenzo RN) History of Hemorrhage: No (02/13/2016 19:18:Shaniqua Lorenzo RN) History of Loss/Stillborn: No (02/13/2016 19:18:Shaniqua Lorenzo RN) History of : No (02/13/2016 19:18:Shaniqua Lorenzo RN) History of D (Rh) Sensitization: No (02/13/2016 19:18:Shaniqua Lorenzo RN) History Recurrent Loss/Stillborn: No (02/13/2016 19:18:Shaniqua Lorenzo RN) History Depression/PP Depression: No (02/13/2016 19:18:Shaniqua Lorenzo RN) History of Uterine Anomaly/FRAN: No (02/13/2016 19:18:Shaniqua Lorenzo RN) History of Infertility: No (02/13/2016 19:18:Shaniqua Lorenzo RN) History of ART Treatment: No (02/13/2016 19:18:Shaniqua Lorenzo RN) History of FRAN: No (02/13/2016 19:18:Shaniqua Lorenzo RN) Comments Obstetrical History: g1- 06/2013 baby boy 6lb 9oz pre-e pt had baby at "almost 36 weeks" g2- current , pre e, was on labetelol stopped in first trimester, has been taking baby asprin (02/13/2016 19:18:Ana Saravia RN) MEDICAL HISTORY Med Hx Diabetes: No (02/13/2016 19:18:Shaniqua Lorenzo RN) Med Hx Hypertension: No (02/13/2016 19:18:Shaniqua Lorenzo RN) Med Hx Heart Disease: Yes (02/13/2016 19:18:Shaniqua Lorenzo RN) Med Hx Autoimmune Disorder: No (02/13/2016 19:18:Shaniqua Lorenzo RN) Med Hx Kidney Disease/UTI: No (02/13/2016 19:18:Shaniqua Lorenzo RN) Med Hx Neurologic/Epilepsy: No (02/13/2016 19:18:Shaniqua Lorenzo RN) Med Hx Psychiatric Disorders: No (02/13/2016 19:18:Shaniqua Lorenzo RN) Med Hx Hepatitis/Liver Disease: No (02/13/2016 19:18:Shaniqua Lorenzo RN) Med Hx Varicosities/Phlebitis: No (02/13/2016 19:18:Shaniqua Lorenzo RN) Med Hx Thyroid Dysfunction: No (02/13/2016 19:18:Shaniqua Lorenzo RN) Med Hx Trauma/Violence: No (02/13/2016 19:18:Shaniqua Lorenzo RN) Med Hx Blood Transfusion: No (02/13/2016 19:18:Shaniqua Lorenzo RN) Med Hx Pulmonary (Asthma,TB): No (02/13/2016 19:18:Shaniqua Lorenzo RN) Med Hx Breast: No (02/13/2016 19:18:Shaniqua Lorenzo RN) Med Hx SOCCER PLAYER Surgery: No (02/13/2016 19:18:Shaniqua Lorenzo RN) Med Hx Hospitalization/Surgery: No (02/13/2016 19:18:Shaniqua Lorenzo RN) Med Hx Anesthetic Complications: No (02/13/2016 19:18:Shaniqua Lorenzo RN) Med Hx Abnormal Pap Smear: No (02/13/2016 19:18:Shaniqua Lorenzo RN) Other Medical Diseases: No (02/13/2016 19:18:Shaniqua Lorenzo RN) Med Hx Significant Family Hx: No (02/13/2016 19:18:Shaniqua Lorenzo RN) Details of Med/Surg Hx: Headaches, Pre E, pt states she has a heart condition but does not know name and was taking beta blockers before questionable SVT. (02/13/2016 19:18:Shaniqua Lorenzo RN) INFECTIOUS HISTORY Inf Hx Gonorrhea: No (02/13/2016 19:18:Shaniqua Lorenzo RN) Inf Hx Chlamydia: No (02/13/2016 19:18:Shaniqua Lorenzo RN) Inf Hx Syphilis: No (02/13/2016 19:18:Shaniqua Lorenzo RN) Inf Hx HIV/AIDS: No (02/13/2016 19:18:Shaniqua Lorenzo RN) Inf Hx Human Papilloma Virus: No (02/13/2016 19:18:Shaniqua Lorenzo RN) Inf Hx Pt/Partner Genital Herpes: No (02/13/2016 19:18:Shaniqua Lorenzo RN) Inf Hx Tuberculosis/Exposure: No (02/13/2016 19:18:Shaniqua Lorenzo RN) Inf Hx Hepatitis B,C: No (02/13/2016 19:18:Shaniqua Lorenzo RN) Inf Hx Rash or Viral Illness: No (02/13/2016 19:18:Shaniqua Lorenzo RN) GENETIC HISTORY Gen Hx Age >=35 at ALDO: No (02/13/2016 19:18:Shaniqua Lorenzo RN) Gen Hx Thalassemia: No (02/13/2016 19:18:Shaniqua Lorenzo RN) Gen Hx Congenital Heart Defect: No (02/13/2016 19:18:Shaniqua Lorenzo RN) Gen Hx Neural Tube Defect: No (02/13/2016 19:18:Shaniqua Lorenzo RN) Gen Hx Down's Syndrome: No (02/13/2016 19:18:Shaniqua Lorenzo RN) Gen Hx Chuy-Sachs: No (02/13/2016 19:18:Shaniqua Lorenzo RN) Gen Hx Jd: No (02/13/2016 19:18:Shaniqua Lorenzo RN) Gen Hx Familial Dysautonomia: No (02/13/2016 19:18:Shaniqua Lorenzo RN) Gen Hx Sickle Cell Disease/Trait: No (02/13/2016 19:18:Shaniqua Lorenzo RN) Gen Hx Hemophilia/Blood Disorder: No (02/13/2016 19:18:Shaniqua Lorenzo RN) Gen Hx Muscular Dystrophy: No (02/13/2016 19:18:Shaniqua Lorenzo RN) Gen Hx Cystic Fibrosis: No (02/13/2016 19:18:Shaniqua Lorenzo RN) Gen Hx Huntingtons Chorea: No (02/13/2016 19:18:Shaniqua Lorenzo RN) Gen Hx Mental Retardation/Autism: No (02/13/2016 19:18:Shaniqua Lorenzo RN) Gen Hx Tested for Fragile X: No (02/13/2016 19:18:Shaniqua Lorenzo RN) Gen Hx Other Inher/Chromosomal: No (02/13/2016 19:18:Shaniqua Lorenzo RN) Gen Hx Maternal Metabolic DO: No (02/13/2016 19:18:Shaniqua Lorenzo RN) Gen Hx Pt Father or FOB Defect: No (02/13/2016 19:18:Shaniqua Lorenzo RN) Gen Hx Other Genetic History: No (02/13/2016 19:18:Shaniqua Lorenzo RN) Gen Hx Drugs/Meds since LMP: No (02/13/2016 19:18:Shaniqua Lorenzo RN)
== END 2016-05-04 11:40 | disposition home or self-care (01) | DRG 775 ==
LOC: LR 10:29 → 2S 22:10
PROVIDERS: ADMIT Obstetrics & Gynecology; ATTEND Obstetrics & Gynecology
PROC: 10E0XZZ Delivery of Products of Conception, External Approach (ICD-10-PCS; principal; 2016-05-02)
PROC: 3E0P7GC Introduction of Other Therapeutic Substance into Female Reproductive, Via Natural or Artificial Opening (ICD-10-PCS; 2016-05-02)
PROC: 10907ZC Drainage of Amniotic Fluid, Therapeutic from Products of Conception, Via Natural or Artificial Opening (ICD-10-PCS; 2016-05-02)
PROC: 4A1HXCZ Monitoring of Products of Conception, Cardiac Rate, External Approach (ICD-10-PCS; 2016-05-02)
DX: O13.4 Gestational [pregnancy-induced] hypertension without significant proteinuria, complicating childbirth (principal); O41.03X0 Oligohydramnios, third trimester, not applicable or unspecified; O69.1XX0 Labor and delivery complicated by cord around neck, with compression, not applicable or unspecified; O99.334 Smoking (tobacco) complicating childbirth; F17.210 Nicotine dependence, cigarettes, uncomplicated; Z88.8 Allergy status to other drugs, medicaments and biological substances; Z3A.37 37 weeks gestation of pregnancy; Z37.0 Single live birth
CPT/HCPCS: 36415; 59025; 80053; 80307; 81001; 83615; 84550; 85025; 85027; 86592; 86850; 86900; 86901; J2300; J2550; J2590; J3490

== ENCOUNTER 2017-01-02 18:04 | Emergency (ER) | payer OTHER ==
[2017-01-02 18:11] VITALS: BP 143/95
[2017-01-02 18:48] LABS: APPEARANCE,URINE CLOUDY; BILIRUBIN,URINE NEGATIVE (NEGATIVE); GLUCOSE, URINE NEGATIVE (NEGATIVE); KETONES,URINE NEGATIVE (NEGATIVE); LEUKOCYTE ESTERASE,URINE LARGE (NEGATIVE); NITRITE,URINE NEGATIVE (NEGATIVE); PROTEIN,URINE NEGATIVE (NEGATIVE); URINE SPECIFIC GRAVITY 1.011; UROBILINOGEN,URINE NEGATIVE mg/dL (<2.0)
[2017-01-02] MEDS ORDERED: HYDROCODONE/ACETAMINOPHEN 5-325 MG TABLET PO ONE (19:19)
[2017-01-02] MEDS ORDERED: ONDANSETRON 4 MG TAB.RAPDIS PO ONE (19:19)
--- NOTE | 2017-01-02 19:19 | ER Document Report ---
ED General - General Chief Complaint: Abdominal Pain Stated Complaint: BACK AND ABDOMINAL PAIN Time Seen by Provider: 01/02/17 19:13 Mode of Arrival: Ambulatory Information source: Patient Notes: Patient states that she has been having some abdominal cramping is been bilateral and lower. She denies any vaginal symptoms. No discharge or bleeding. Patient states that she was seen by her primary physician this morning and diagnosed with urinary tract infectio. She was placed on ciprofloxacin. Patient states she has been nauseous but has no vomiting. She states she is also been unable to eat. The pain is been bilateral and crampy. Nothing makes it better or worse. It does radiate to her back especially the left lower back. It is been constant and moderate. TRAVEL OUTSIDE OF THE [place] IN LAST 30 DAYS: No - Related Data Allergies/Adverse Reactions: ondansetron [From Zofran (as hydrochloride)] Allergy (Verified 01/02/17 18:09) alamide Allergy (Intermediate, Uncoded 01/02/17 18:09) Past Medical History - General Information source: Patient - Social History Smoking Status: Current Every Day Smoker Chew tobacco use (# tins/day): No Frequency of alcohol use: None Drug Abuse: None Family History: Reviewed & Not Pertinent - Past Medical History Cardiac Medical History: Reports: Hx Hypertension Renal/ Medical History: Denies: Hx Peritoneal Dialysis Review of Systems - Review of Systems Constitutional: Malaise, Weakness Cardiovascular: denies: Chest pain, Palpitations Respiratory: denies: Cough, Hemoptysis, Short of breath Gastrointestinal: Nausea -: Yes All other systems reviewed and negative Physical Exam - Vital signs Vitals: Temp Pulse Resp BP Pulse Ox 98.8 F 90 14 143/95 H 99 01/02/17 18:10 01/02/17 18:10 01/02/17 18:10 01/02/17 18:10 01/02/17 18:10 Interpretation: Hypertensive - General General appearance: Appears well, Alert - HEENT Head: Normocephalic, Atraumatic Eyes: Normal Pupils: PERRL - Respiratory Respiratory status: No respiratory distress Chest status: Nontender Breath sounds: Normal Chest palpation: Normal - Cardiovascular Rhythm: Regular Heart sounds: Normal auscultation Murmur: No - Abdominal Inspection: Normal Distension: No distension Bowel sounds: Normal Tenderness: Tender - Patient has bilateral lower quadrant tenderness to palpation Organomegaly: No organomegaly - Back Back: Normal, Tender - Patient has left flank pain to percussion. - Extremities General upper extremity: Normal inspection, Nontender, Normal color, Normal ROM , Normal temperature General lower extremity: Normal inspection, Nontender, Normal color, Normal ROM , Normal temperature, Normal weight bearing. No: Josemanuel's sign - Neurological Neuro grossly intact: Yes Cognition: Normal Orientation: AAOx4 [place] Coma Scale Eye Opening: Spontaneous [place] Coma Scale Verbal: Oriented [place] Coma Scale Motor: Obeys Commands Keesha Coma Scale Total: 15 Speech: Normal Motor strength normal: LUE, RUE, LLE, RLE Sensory: Normal - Psychological Associated symptoms: Normal affect, Normal mood - Skin Skin Temperature: Warm Skin Moisture: Dry Skin Color: Normal Course - Vital Signs Vital signs: Temp Pulse Resp BP Pulse Ox 98.8 F 90 14 143/95 H 99 01/02/17 18:10 01/02/17 18:10 01/02/17 18:10 01/02/17 18:10 01/02/17 18:10 - Laboratory Laboratory results interpreted by me: 01/02/17 18:21 Ur Leukocyte Esterase LARGE H Discharge - Discharge Clinical Impression: Pyelonephritis Condition: Stable Disposition: HOME, SELF-CARE Instructions: Oral Narcotic Medication ([facility]), Antinausea Medication ([facility]) Additional Instructions: Please follow-up with your primary care physician as soon as possible Prescriptions: Hydrocodone/Acetaminophen [[place] 5-325 mg Tablet] 1 tab PO Q6 PRN #15 tablet PRN Reason: Levofloxacin [Levaquin 500 mg Tablet] 500 mg PO DAILY #10 tablet Metoclopramide HCl [Reglan 10 mg Tablet] 1 tab PO ASDIR PRN #12 tablet PRN Reason:
== END 2017-01-02 19:20 | disposition home or self-care (01) ==
LOC: ER 18:04
DX: N12 Tubulo-interstitial nephritis, not specified as acute or chronic (principal); R10.9 Unspecified abdominal pain; M54.9 Dorsalgia, unspecified; R10.31 Right lower quadrant pain; R10.32 Left lower quadrant pain; F17.200 Nicotine dependence, unspecified, uncomplicated; Z79.899 Other long term (current) drug therapy
CPT/HCPCS: 81001; 81025; 99284

== ENCOUNTER 2017-03-29 12:13 | Emergency (ER) | payer OTHER ==
--- NOTE | 2017-03-29 12:38 | ER Document Report ---
ED Medical Screen (RME) - General Chief Complaint: Vaginal Bleeding Stated Complaint: VAGINAL BLEEDING Time Seen by Provider: 03/29/17 12:36 Notes: Patient says that she is about 11 weeks , G3, and began having vaginal bleeding about 1 hour ago followed by some generalized abdominal cramping. She said that she initially went to the bathroom and had a gush and then blood just poured into the bowl. She did not see anything that looked like a fetus or tissue. Patient says that she had an office ultrasound done about 3 weeks ago and was told everything was okay. TRAVEL OUTSIDE OF THE [place] IN LAST 30 DAYS: No - Related Data Allergies/Adverse Reactions: ondansetron [From Zofran (as hydrochloride)] Allergy (Verified 03/29/17 12:14) alamide Allergy (Intermediate, Uncoded 03/29/17 12:14) Past Medical History - Past Medical History Cardiac Medical History: Reports: Hx Hypertension Renal/ Medical History: Denies: Hx Peritoneal Dialysis Physical Exam - Vital signs Vitals: Temp Pulse Resp BP Pulse Ox 98.3 F 115 H 14 143/93 H 99 03/29/17 12:17 03/29/17 12:17 03/29/17 12:17 03/29/17 12:17 03/29/17 12:17 Course - Vital Signs Vital signs: Temp Pulse Resp BP Pulse Ox 98.3 F 115 H 14 143/93 H 99 03/29/17 12:17 03/29/17 12:17 03/29/17 12:17 03/29/17 12:17 03/29/17 12:17
[2017-03-29 13:36] LABS: ABSOLUTE EOSINOPHILS # (AUTO) 0.2 10^3/uL (0.0-0.6); ABSOLUTE LYMPHOCYTES (AUTO) 1.7 10^3/uL (0.5-4.7); ABSOLUTE MONOCYTES (AUTO) 0.5 10^3/uL (0.1-1.4); ABSOLUTE NEUT (AUTO) 8.5 10^3/uL (1.7-8.2); ALANINE AMINOTRANSFERASE 16 U/L (9-52); ALBUMIN 4.4 g/dL (3.5-5.0); ALKALINE PHOSPHATASE 50 U/L (38-126); ANION GAP 9 (5-19); ASPARTATE AMINO TRANSFERASE 16 U/L (14-36); BASOPHILS % (AUTO) 0.2 % (0-2); BILIRUBIN,DIRECT 0.1 mg/dL (0.0-0.4); BILIRUBIN,TOTAL 0.2 mg/dL (0.2-1.3); BLOOD UREA NITROGEN 6 mg/dL (7-20); CALCIUM 9.4 mg/dL (8.4-10.2); CARBON DIOXIDE 25 mmol/L (22-30); CHLORIDE 105 mmol/L (98-107); CREATININE RESULT 0.48 mg/dL (0.52-1.25); EOSINOPHILS % (AUTO) 1.5 % (0-6); GLUCOSE 88 mg/dL (75-110); HEMATOCRIT 39.5 % (36.0-47.0); HEMOGLOBIN 13.5 g/dL (12.0-15.5); LYMPHOCYTES % (AUTO) 15.9 % (13-45); MEAN CORPUSCULAR HEMOGLOBIN 29.5 pg (27.0-33.4); MEAN CORPUSCULAR HGB CONC 34.2 g/dL (32.0-36.0); MEAN CORPUSCULAR VOLUME 86 fl (80-97); POTASSIUM 3.9 mmol/L (3.6-5.0); RED BLOOD COUNT 4.58 10^6/uL (3.72-5.28); RED CELL DISTRIBUTION WIDTH 13.3 % (11.5-14.0); SEGMENTED NEUTROPHILS % (AUTO) 77.4 % (42-78); SODIUM 139.4 mmol/L (137-145); TOTAL PROTEIN 7.5 g/dL (6.3-8.2); WHITE BLOOD COUNT 10.9 10^3/uL (4.0-10.5)
--- NOTE | 2017-03-29 14:21 | RADIOLOGY REPORT (SQ) ---
EXAM DESCRIPTION: U/S 1TRIMESTER/1GEST W/DOPPLER COMPLETED DATE/TIME: 03/29/2017 2:12 pm REASON FOR STUDY: 11 weeks with vaginal bleeding. COMPARISON: None. TECHNIQUE: Transabdominal static and realtime grayscale images acquired of the pelvis. Additional se lected spectral and color Doppler images recorded. All images stored on PACs. bHCG: Pending. LIMITATIONS: None. FINDINGS: FETUS: Living intrauterine . EGA: 11 WEEKS 1 DAY ALDO: 10/17/2017 FHR: 155 beats per minute. SUBCHORIONIC BLEED: No. SIZE OF BLEED: Not applicable. UTERUS: No masses. No anomalies. CERVICAL LENGTH: 3.2 CM Closed. RIGHT ADNEXA: Ovary not identified. No adnexal free fluid. No adnexal masses. LEFT ADNEXA: Ovary not identified. No adnexal free fluid. No adnexal masses. FREE FLUID: None. OTHER: No other significant finding. IMPRESSION: LIVING INTRAUTERINE . EGA 11 WEEKS 1 DAY. Trimester of : First - 0 to 13 weeks. TECHNICAL DOCUMENTATION: JOB ID: [id number] [employer]- All Rights Reserved
[2017-03-29] MEDS ORDERED: METOCLOPRAMIDE HCL 10 MG TABLET PO ONE (14:27)
[2017-03-29] MEDS ORDERED: ACETAMINOPHEN 325 MG TABLET PO ONE (14:27)
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
[2017-03-29 14:53] VITALS: BP 112/73
[2017-03-29 15:05] LABS: APPEARANCE,URINE CLEAR; BILIRUBIN,URINE NEGATIVE (NEGATIVE); GLUCOSE, URINE NEGATIVE (NEGATIVE); KETONES,URINE NEGATIVE (NEGATIVE); LEUKOCYTE ESTERASE,URINE NEGATIVE (NEGATIVE); NITRITE,URINE NEGATIVE (NEGATIVE); PROTEIN,URINE 30 mg/dL (NEGATIVE); URINE SPECIFIC GRAVITY 1.006; UROBILINOGEN,URINE NEGATIVE mg/dL (<2.0)
== END 2017-03-29 14:51 | disposition home or self-care (01) ==
LOC: ER 12:13
DX: O20.0 Threatened abortion (principal); N93.9 Abnormal uterine and vaginal bleeding, unspecified; R10.2 Pelvic and perineal pain; Z3A.11 11 weeks gestation of pregnancy
CPT/HCPCS: 36415; 76801; 80053; 81001; 84702; 85025; 86900; 86901; 93976; 99284

== ENCOUNTER 2017-06-27 09:13 | Outpatient (CLI) | payer OTHER ==
[2017-06-27 10:02] LABS: APPEARANCE,URINE CLEAR; BILIRUBIN,URINE NEGATIVE (NEGATIVE); COLOR,URINE YELLOW; GLUCOSE, URINE NEGATIVE (NEGATIVE); KETONES,URINE NEGATIVE (NEGATIVE); LEUKOCYTE ESTERASE,URINE TRACE (NEGATIVE); NITRITE,URINE NEGATIVE (NEGATIVE); PROTEIN,URINE NEGATIVE (NEGATIVE); URINE SPECIFIC GRAVITY 1.016; UROBILINOGEN,URINE NEGATIVE mg/dL (<2.0)
[2017-06-27 10:22] LABS: ABSOLUTE BASOPHILS # (AUTO) 0.1 10^3/uL (0.0-0.2); ABSOLUTE EOSINOPHILS # (AUTO) 0.2 10^3/uL (0.0-0.6); ABSOLUTE LYMPHOCYTES (AUTO) 1.6 10^3/uL (0.5-4.7); ABSOLUTE MONOCYTES (AUTO) 0.7 10^3/uL (0.1-1.4); ABSOLUTE NEUT (AUTO) 9.5 10^3/uL (1.7-8.2); BASOPHILS % (AUTO) 0.5 % (0-2); EOSINOPHILS % (AUTO) 1.9 % (0-6); HEMOGLOBIN 11.3 g/dL (12.0-15.5); LYMPHOCYTES % (AUTO) 13.4 % (13-45); MEAN CORPUSCULAR HEMOGLOBIN 29.2 pg (27.0-33.4); MEAN CORPUSCULAR HGB CONC 33.4 g/dL (32.0-36.0); MEAN CORPUSCULAR VOLUME 88 fl (80-97); MONOCYTES % (AUTO) 5.5 % (3-13); PLATELET COUNT 240 10^3/uL (150-450); RED BLOOD COUNT 3.88 10^6/uL (3.72-5.28); RED CELL DISTRIBUTION WIDTH 13.3 % (11.5-14.0); SEGMENTED NEUTROPHILS % (AUTO) 78.7 % (42-78); TOTAL CELLS COUNTED % (AUTO) 100 %
[2017-06-27 10:23] LABS: UR PRO/CREAT RATIO RESULT 0.1 mg/mg (0.0-0.2); URINE CREATININE 75.7 mg/dL (16-327); URINE PROTEIN 8.8 mg/dL (<12)
[2017-06-27 10:30] LABS: URINE AMPHETAMINES SCREEN NEGATIVE; URINE BARBITURATES SCREEN NEGATIVE; URINE BENZODIAZEPINES SCREEN NEGATIVE; URINE COCAINE SCREEN NEGATIVE; URINE MARIJUANA (THC) SCREEN NEGATIVE; URINE METHADONE SCREEN NEGATIVE; URINE PHENCYCLIDINE SCREEN NEGATIVE
[2017-06-27 10:44] LABS: ALANINE AMINOTRANSFERASE 28 U/L (9-52); ALBUMIN 3.5 g/dL (3.5-5.0); ALKALINE PHOSPHATASE 61 U/L (38-126); ANION GAP 7 (5-19); ASPARTATE AMINO TRANSFERASE 15 U/L (14-36); BILIRUBIN,DIRECT 0.2 mg/dL (0.0-0.4); BILIRUBIN,TOTAL 0.2 mg/dL (0.2-1.3); BLOOD UREA NITROGEN 8 mg/dL (7-20); CALCIUM 9.1 mg/dL (8.4-10.2); CARBON DIOXIDE 23 mmol/L (22-30); CHLORIDE 105 mmol/L (98-107); GLUCOSE 73 mg/dL (75-110); LDH 396 U/L (313-618); POTASSIUM 4.1 mmol/L (3.6-5.0); SODIUM 134.6 mmol/L (137-145); TOTAL PROTEIN 6.2 g/dL (6.3-8.2); URIC ACID 3.6 mg/dL (2.5-6.2)
== END 2017-06-27 11:07 | disposition home or self-care (01) ==
LOC: LC 09:13
PROVIDERS: ATTEND Obstetrics & Gynecology
PROC: 4A1HXCZ Monitoring of Products of Conception, Cardiac Rate, External Approach (ICD-10-PCS; principal; 2017-06-27)
DX: O14.92 Unspecified pre-eclampsia, second trimester (principal); Z3A.24 24 weeks gestation of pregnancy
CPT/HCPCS: 36415; 80053; 80307; 81001; 82570; 83615; 84156; 84550; 85025

== ENCOUNTER 2017-07-13 17:31 | Observation (INO) | payer OTHER ==
[2017-07-13 18:00] VITALS: BP 125/82
[2017-07-13] MEDS ORDERED: ACETAMINOPHEN 325 MG TABLET PO ONE (18:00)
[2017-07-13] MEDS ORDERED: LIDOCAINE 5% (700 MG) TRANSDERMAL ADH..PATCH TP ONE (19:16)
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
[2017-07-13 22:14] LABS: ABSOLUTE EOSINOPHILS # (AUTO) 0.2 10^3/uL (0.0-0.6); ABSOLUTE LYMPHOCYTES (AUTO) 2.2 10^3/uL (0.5-4.7); BASOPHILS % (AUTO) 0.2 % (0-2); EOSINOPHILS % (AUTO) 0.9 % (0-6); HEMATOCRIT 32.1 % (36.0-47.0); HEMOGLOBIN 10.9 g/dL (12.0-15.5); LYMPHOCYTES % (AUTO) 12.2 % (13-45); MEAN CORPUSCULAR HEMOGLOBIN 29.2 pg (27.0-33.4); MEAN CORPUSCULAR HGB CONC 33.9 g/dL (32.0-36.0); MEAN CORPUSCULAR VOLUME 86 fl (80-97); MONOCYTES % (AUTO) 5.2 % (3-13); PLATELET COUNT 294 10^3/uL (150-450); RED BLOOD COUNT 3.73 10^6/uL (3.72-5.28); RED CELL DISTRIBUTION WIDTH 12.7 % (11.5-14.0); SEGMENTED NEUTROPHILS % (AUTO) 81.5 % (42-78); TOTAL CELLS COUNTED % (AUTO) 100 %; WHITE BLOOD COUNT 18.4 10^3/uL (4.0-10.5)
[2017-07-13 22:22] LABS: INTERNATIONAL RATION (INR) 0.84
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
[2017-07-13 22:37] LABS: APPEARANCE,URINE CLEAR; BILIRUBIN,URINE NEGATIVE (NEGATIVE); COLOR,URINE YELLOW; GLUCOSE, URINE NEGATIVE (NEGATIVE); KETONES,URINE 20 mg/dL (NEGATIVE); LEUKOCYTE ESTERASE,URINE MODERATE (NEGATIVE); NITRITE,URINE NEGATIVE (NEGATIVE); PROTEIN,URINE NEGATIVE (NEGATIVE); URINE AMPHETAMINES SCREEN NEGATIVE; URINE BARBITURATES SCREEN NEGATIVE; URINE BENZODIAZEPINES SCREEN NEGATIVE; URINE COCAINE SCREEN NEGATIVE; URINE MARIJUANA (THC) SCREEN NEGATIVE; URINE METHADONE SCREEN NEGATIVE; URINE PHENCYCLIDINE SCREEN NEGATIVE; UROBILINOGEN,URINE NEGATIVE mg/dL (<2.0)
[2017-07-13] MEDS ORDERED: ACETAMINOPHEN 325 MG TABLET ONE (23:16)
[2017-07-14] MEDS ORDERED: FAMOTIDINE 20 MG TABLET ONE (02:40)
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
[2017-07-14 04:32] LABS: FETAL RBC COUNT 0
[2017-07-14 04:33] LABS: KB INTERPRETATION NEGATIVE (NEGATIVE)
== END 2017-07-14 05:01 | disposition home or self-care (01) ==
LOC: ER 17:31 → LR 21:13
PROVIDERS: ADMIT Student in an Organized Health Care Education/Training Program; ATTEND Student in an Organized Health Care Education/Training Program
DX: O26.892 Other specified pregnancy related conditions, second trimester (principal); S29.9XXA Unspecified injury of thorax, initial encounter; S69.92XA Unspecified injury of left wrist, hand and finger(s), initial encounter; R00.0 Tachycardia, unspecified; M25.551 Pain in right hip; V49.40XA Driver injured in collision with unspecified motor vehicles in traffic accident, initial encounter; Y92.410 Unspecified street and highway as the place of occurrence of the external cause; Z3A.26 26 weeks gestation of pregnancy
CPT/HCPCS: 36415; 71045; 76815; 80307; 81001; 85025; 85362; 85460; 85610; 87086; 99285

== ENCOUNTER 2017-07-30 15:41 | Outpatient (CLI) | payer OTHER ==
[2017-07-30 16:16] LABS: APPEARANCE,URINE CLEAR; BILIRUBIN,URINE NEGATIVE (NEGATIVE); COLOR,URINE COLORLESS; GLUCOSE, URINE NEGATIVE (NEGATIVE); KETONES,URINE NEGATIVE (NEGATIVE); LEUKOCYTE ESTERASE,URINE NEGATIVE (NEGATIVE); NITRITE,URINE NEGATIVE (NEGATIVE); PROTEIN,URINE NEGATIVE (NEGATIVE); URINE SPECIFIC GRAVITY 1.005; UROBILINOGEN,URINE NEGATIVE mg/dL (<2.0)
[2017-07-30 16:29] LABS: RBCS (WET MOUNT) NO RBCS SEEN; T.VAGINALIS (WET MOUNT) NO TRICHOMONAS SEEN; WBCS (WET MOUNT) RARE WBCS SEEN; YEAST (WET MOUNT) NO YEAST SEEN
[2017-07-30 16:34] LABS: URINE AMPHETAMINES SCREEN NEGATIVE; URINE BARBITURATES SCREEN NEGATIVE; URINE BENZODIAZEPINES SCREEN NEGATIVE; URINE COCAINE SCREEN NEGATIVE; URINE MARIJUANA (THC) SCREEN NEGATIVE; URINE METHADONE SCREEN NEGATIVE; URINE PHENCYCLIDINE SCREEN NEGATIVE
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
[2017-07-30 17:56] LABS: CHLAM PCR NOT DETECTED (NOT DETECT); GON PCR NOT DETECTED (NOT DETECT)
== END 2017-07-30 17:56 | disposition home or self-care (01) ==
LOC: LC 15:41
PROVIDERS: ATTEND Obstetrics & Gynecology
PROC: 4A1HXCZ Monitoring of Products of Conception, Cardiac Rate, External Approach (ICD-10-PCS; principal; 2017-07-30)
DX: Z34.93 Encounter for supervision of normal pregnancy, unspecified, third trimester (principal); Z36.89 Encounter for other specified antenatal screening
CPT/HCPCS: 59025; 76815; 80307; 81001; 87081; 87210; 87491; 87591

== ENCOUNTER 2017-08-26 00:47 | Outpatient (CLI) | payer OTHER ==
[2017-08-26 01:38] LABS: APPEARANCE,URINE CLEAR; BILIRUBIN,URINE NEGATIVE (NEGATIVE); COLOR,URINE STRAW; GLUCOSE, URINE NEGATIVE (NEGATIVE); KETONES,URINE NEGATIVE (NEGATIVE); LEUKOCYTE ESTERASE,URINE TRACE (NEGATIVE); NITRITE,URINE NEGATIVE (NEGATIVE); PROTEIN,URINE NEGATIVE (NEGATIVE); URINE SPECIFIC GRAVITY 1.008; UROBILINOGEN,URINE NEGATIVE mg/dL (<2.0)
[2017-08-26] MEDS ORDERED: RINGERS SOLUTION,LACTATED 1,000 ML IV PRN (01:54)
[2017-08-26 02:01] LABS: URINE AMPHETAMINES SCREEN NEGATIVE; URINE BARBITURATES SCREEN NEGATIVE; URINE BENZODIAZEPINES SCREEN NEGATIVE; URINE COCAINE SCREEN NEGATIVE; URINE MARIJUANA (THC) SCREEN NEGATIVE; URINE METHADONE SCREEN NEGATIVE; URINE PHENCYCLIDINE SCREEN NEGATIVE
[2017-08-26] MEDS ORDERED: PROMETHAZINE HCL INJ 25 MG/1 ML VIAL ONE (02:23)
[2017-08-26] MEDS ORDERED: PROMETHAZINE HCL INJ 25 MG/1 ML VIAL IV ONE (02:25)
[2017-08-26 02:49] LABS: HEMATOCRIT 31.3 % (36.0-47.0); HEMOGLOBIN 10.4 g/dL (12.0-15.5); MEAN CORPUSCULAR HEMOGLOBIN 27.9 pg (27.0-33.4); MEAN CORPUSCULAR HGB CONC 33.3 g/dL (32.0-36.0); MEAN CORPUSCULAR VOLUME 84 fl (80-97); PLATELET COUNT 289 10^3/uL (150-450); RED BLOOD COUNT 3.73 10^6/uL (3.72-5.28); RED CELL DISTRIBUTION WIDTH 13.4 % (11.5-14.0); WHITE BLOOD COUNT 17.2 10^3/uL (4.0-10.5)
[2017-08-26 02:49] LABS: UR PRO/CREAT RATIO RESULT 0.3 mg/mg (0.0-0.2); URINE CREATININE 37.3 mg/dL (16-327); URINE PROTEIN 12.6 mg/dL (<12)
[2017-08-26 02:58] LABS: ALANINE AMINOTRANSFERASE 17 U/L (9-52); ALBUMIN 3.3 g/dL (3.5-5.0); ALKALINE PHOSPHATASE 82 U/L (38-126); ANION GAP 11 (5-19); ASPARTATE AMINO TRANSFERASE 15 U/L (14-36); BILIRUBIN,DIRECT 0.2 mg/dL (0.0-0.4); BILIRUBIN,TOTAL 0.2 mg/dL (0.2-1.3); BLOOD UREA NITROGEN 7 mg/dL (7-20); CALCIUM 9.2 mg/dL (8.4-10.2); CARBON DIOXIDE 23 mmol/L (22-30); CHLORIDE 105 mmol/L (98-107); GLUCOSE 88 mg/dL (75-110); LDH 370 U/L (313-618); POTASSIUM 4.7 mmol/L (3.6-5.0); SODIUM 138.7 mmol/L (137-145); TOTAL PROTEIN 6.3 g/dL (6.3-8.2); URIC ACID 3.2 mg/dL (2.5-6.2)
--- NOTE | 2017-08-26 03:28 | RADIOLOGY REPORT (SQ) ---
EXAM DESCRIPTION: US LIMITED CLINICAL HISTORY: 21 years Female, cervical length for PTL Comparison: 4.25.18 Technique: Transvaginal, targeted, OB ultrasound for requested parameters only. LIMITATIONS: None. Findings: Cervical length: 3.3 cm. Closed appearance. position: Vertex. heart rate: 139 bpm. Impression: Targeted OB sonogram for requested parameters only.
--- NOTE | 2017-08-26 03:33 | Non Stress Test Report ---
Non Stress Test Datetime Report Generated by CPN: 08/26/2017 03:33 DEMOGRAPHIC Test Number: 1 EGA NST: 32.2 INDICATION Indication for Study: Ordered by Provider Indication for Study (NST) Other: LC URINE RESULTS Urine Protein, NST: Negative Urine Ketones - NST: Negative Urine Glucose - NST: Negative Urine Blood - NST: Negative MONITORING Monitor Explained: Monitor Explained; Test Explained; Patient Verbalized Understanding Time on Monitor: 08/26/2017 01:46 Time off Monitor: 08/26/2017 02:50 NST Duration: 64 NST INTERVENTIONS NST Interventions: PO Hydration; IV Fluids Physician Notified NST: Nehemias BABY A: [id number] BABY A Movement : Present Contraction Frequency : 2-4 FHR Baseline : 135 Accelerations : 15X15 Decelerations : None Variability : Moderate 6-25bpm NST Review: Meets Criteria for Reactive NST NST Review and Verified By : DEACON Boswell NST Results: Reactive NST REPORT Report Trigger: Send Report
[2017-08-26] MEDS ORDERED: HYDROXYZINE PAMOATE 50 MG CAPSULE PO ONE (03:35)
[2017-08-26] MEDS ORDERED: OXYCODONE-ACETAMINOPHEN 5-325 MG TABLET PO ONE (03:35)
[2017-08-26] MEDS ORDERED: HYDROXYZINE PAMOATE 50 MG CAPSULE ONE (03:39)
[2017-08-26] MEDS ORDERED: OXYCODONE-ACETAMINOPHEN 5-325 MG TABLET ONE (03:39)
[2017-08-26] MEDS ORDERED: NIFEDIPINE 10 MG CAPSULE ONE (06:43)
[2017-08-26] MEDS ORDERED: NIFEDIPINE 10 MG CAPSULE PO ONE (08:12)
== END 2017-08-26 08:25 | disposition home or self-care (01) ==
LOC: LC 00:47
PROVIDERS: ATTEND Obstetrics & Gynecology
PROC: 4A1HXCZ Monitoring of Products of Conception, Cardiac Rate, External Approach (ICD-10-PCS; principal; 2017-08-26)
DX: O47.03 False labor before 37 completed weeks of gestation, third trimester (principal); Z3A.32 32 weeks gestation of pregnancy
CPT/HCPCS: 36415; 83615; 84156; 84550; 82570; 85027; 80053; 81001; 80307; 76815; 59025; J3490; J2550

== ENCOUNTER 2017-09-05 11:19 | Outpatient (CLI) | payer OTHER ==
[2017-09-05 12:21] LABS: APPEARANCE,URINE SLIGHTLY-CLOUDY; BILIRUBIN,URINE NEGATIVE (NEGATIVE); COLOR,URINE YELLOW; GLUCOSE, URINE NEGATIVE (NEGATIVE); KETONES,URINE NEGATIVE (NEGATIVE); LEUKOCYTE ESTERASE,URINE MODERATE (NEGATIVE); NITRITE,URINE NEGATIVE (NEGATIVE); PROTEIN,URINE NEGATIVE (NEGATIVE); URINE SPECIFIC GRAVITY 1.017; UROBILINOGEN,URINE NEGATIVE mg/dL (<2.0)
--- NOTE | 2017-09-05 12:25 | Non Stress Test Report ---
Non Stress Test Datetime Report Generated by CPN: 09/05/2017 12:25 DEMOGRAPHIC EGA NST: 33.5 INDICATION Indication for Study: Ordered by Provider MONITORING Monitor Explained: Monitor Explained; Test Explained; Patient Verbalized Understanding Time on Monitor: 09/05/2017 11:43 Time off Monitor: 09/05/2017 12:24 NST Duration: 41 NST INTERVENTIONS NST Interventions: None Physician Notified NST: A Simmons CNM Physician Notified NST: A Simmons CNM BABY A: [id number] BABY A Movement : Present Contraction Frequency : irregular FHR Baseline : 135 Accelerations : 15X15 Decelerations : None Variability : Moderate 6-25bpm NST Review: Meets Criteria for Reactive NST NST Review and Verified By : Dinora Brown RNC NST Results: Reactive NST REPORT Report Trigger: Send Report
[2017-09-05 14:09] LABS: URINE AMPHETAMINES SCREEN NEGATIVE; URINE BARBITURATES SCREEN NEGATIVE; URINE BENZODIAZEPINES SCREEN NEGATIVE; URINE COCAINE SCREEN NEGATIVE; URINE MARIJUANA (THC) SCREEN NEGATIVE; URINE METHADONE SCREEN NEGATIVE; URINE PHENCYCLIDINE SCREEN NEGATIVE
== END 2017-09-05 12:34 | disposition home or self-care (01) ==
LOC: LC 11:19
PROVIDERS: ATTEND Obstetrics & Gynecology
PROC: 4A1HXCZ Monitoring of Products of Conception, Cardiac Rate, External Approach (ICD-10-PCS; principal; 2017-09-05)
DX: O47.03 False labor before 37 completed weeks of gestation, third trimester (principal); Z3A.33 33 weeks gestation of pregnancy
CPT/HCPCS: 59025; 80307; 81001; 87086

== ENCOUNTER 2017-09-17 16:46 | Outpatient (CLI) | payer OTHER ==
[2017-09-17 17:23] LABS: APPEARANCE,URINE SLIGHTLY-CLOUDY; BILIRUBIN,URINE NEGATIVE (NEGATIVE); COLOR,URINE YELLOW; GLUCOSE, URINE NEGATIVE (NEGATIVE); KETONES,URINE NEGATIVE (NEGATIVE); LEUKOCYTE ESTERASE,URINE LARGE (NEGATIVE); NITRITE,URINE NEGATIVE (NEGATIVE); PROTEIN,URINE NEGATIVE (NEGATIVE); URINE SPECIFIC GRAVITY 1.017
--- NOTE | 2017-09-17 17:32 | Non Stress Test Report ---
Non Stress Test Datetime Report Generated by CPN: 09/17/2017 17:32 DEMOGRAPHIC EGA NST: 35.3 INDICATION Indication for Study: Ordered by Provider Indication for Study (NST) Other: lc MONITORING Monitor Explained: Monitor Explained; Test Explained; Patient Verbalized Understanding Time on Monitor: 09/17/2017 17:00 Time off Monitor: 09/17/2017 17:22 NST Duration: 22 NST INTERVENTIONS NST Interventions: None Physician Notified NST: J. Contreras, CNM BABY A: [id number] BABY A Movement : Present Contraction Frequency : Irregular FHR Baseline : 130 Accelerations : 15X15 Decelerations : None Variability : Moderate 6-25bpm NST Review: Meets Criteria for Reactive NST NST Review and Verified By : D Bellavance RNC NST Results: Reactive NST REPORT Report Trigger: Send Report
[2017-09-17 17:36] LABS: ALANINE AMINOTRANSFERASE 15 U/L (9-52); ALBUMIN 3.2 g/dL (3.5-5.0); ALKALINE PHOSPHATASE 90 U/L (38-126); ANION GAP 12 (5-19); ASPARTATE AMINO TRANSFERASE 13 U/L (14-36); BILIRUBIN,DIRECT 0.2 mg/dL (0.0-0.4); BILIRUBIN,TOTAL 0.2 mg/dL (0.2-1.3); BLOOD UREA NITROGEN 5 mg/dL (7-20); CALCIUM 9.3 mg/dL (8.4-10.2); CARBON DIOXIDE 19 mmol/L (22-30); CHLORIDE 108 mmol/L (98-107); GLUCOSE 105 mg/dL (75-110); LDH 359 U/L (313-618); POTASSIUM 3.5 mmol/L (3.6-5.0); SODIUM 138.6 mmol/L (137-145); URIC ACID 3.6 mg/dL (2.5-6.2)
[2017-09-17 17:45] LABS: UR PRO/CREAT RATIO RESULT 0.2 mg/mg (0.0-0.2); URINE CREATININE 119.8 mg/dL (16-327); URINE PROTEIN 29.7 mg/dL (<12)
[2017-09-17 17:50] LABS: URINE AMPHETAMINES SCREEN NEGATIVE; URINE BARBITURATES SCREEN NEGATIVE; URINE BENZODIAZEPINES SCREEN NEGATIVE; URINE COCAINE SCREEN NEGATIVE; URINE MARIJUANA (THC) SCREEN NEGATIVE; URINE METHADONE SCREEN NEGATIVE; URINE PHENCYCLIDINE SCREEN NEGATIVE
[2017-09-17 17:52] LABS: ABSOLUTE EOSINOPHILS # (AUTO) 0.2 10^3/uL (0.0-0.6); ABSOLUTE LYMPHOCYTES (AUTO) 1.8 10^3/uL (0.5-4.7); ABSOLUTE MONOCYTES (AUTO) 0.9 10^3/uL (0.1-1.4); ABSOLUTE NEUT (AUTO) 11.3 10^3/uL (1.7-8.2); BASOPHILS % (AUTO) 0.1 % (0-2); EOSINOPHILS % (AUTO) 1.1 % (0-6); HEMATOCRIT 29.4 % (36.0-47.0); HEMOGLOBIN 9.9 g/dL (12.0-15.5); LYMPHOCYTES % (AUTO) 12.7 % (13-45); MEAN CORPUSCULAR HEMOGLOBIN 27.3 pg (27.0-33.4); MEAN CORPUSCULAR HGB CONC 33.7 g/dL (32.0-36.0); MEAN CORPUSCULAR VOLUME 81 fl (80-97); MONOCYTES % (AUTO) 6.3 % (3-13); PLATELET COUNT 259 10^3/uL (150-450); RED BLOOD COUNT 3.63 10^6/uL (3.72-5.28); RED CELL DISTRIBUTION WIDTH 14.2 % (11.5-14.0); SEGMENTED NEUTROPHILS % (AUTO) 79.8 % (42-78); TOTAL CELLS COUNTED % (AUTO) 100 %; WHITE BLOOD COUNT 14.2 10^3/uL (4.0-10.5)
== END 2017-09-17 18:49 | disposition home or self-care (01) ==
LOC: LC 16:46
PROVIDERS: ATTEND Student in an Organized Health Care Education/Training Program
PROC: 4A1HXCZ Monitoring of Products of Conception, Cardiac Rate, External Approach (ICD-10-PCS; principal; 2017-09-17)
DX: O13.3 Gestational [pregnancy-induced] hypertension without significant proteinuria, third trimester (principal); Z3A.35 35 weeks gestation of pregnancy
CPT/HCPCS: 36415; 59025; 80053; 80307; 81005; 82570; 83615; 84156; 84550; 85025

== ENCOUNTER 2017-09-23 11:45 | Outpatient (CLI) | payer OTHER ==
[2017-09-23 12:14] LABS: APPEARANCE,URINE SLIGHTLY-CLOUDY; BILIRUBIN,URINE NEGATIVE (NEGATIVE); COLOR,URINE YELLOW; GLUCOSE, URINE NEGATIVE (NEGATIVE); KETONES,URINE NEGATIVE (NEGATIVE); LEUKOCYTE ESTERASE,URINE SMALL (NEGATIVE); NITRITE,URINE NEGATIVE (NEGATIVE); PROTEIN,URINE NEGATIVE (NEGATIVE); URINE SPECIFIC GRAVITY 1.013
[2017-09-23 12:32] LABS: ABSOLUTE EOSINOPHILS # (AUTO) 0.2 10^3/uL (0.0-0.6); ABSOLUTE LYMPHOCYTES (AUTO) 1.8 10^3/uL (0.5-4.7); ABSOLUTE MONOCYTES (AUTO) 1.1 10^3/uL (0.1-1.4); ABSOLUTE NEUT (AUTO) 13.3 10^3/uL (1.7-8.2); BASOPHILS % (AUTO) 0.2 % (0-2); EOSINOPHILS % (AUTO) 1.2 % (0-6); HEMATOCRIT 32.6 % (36.0-47.0); HEMOGLOBIN 10.6 g/dL (12.0-15.5); MEAN CORPUSCULAR HEMOGLOBIN 25.8 pg (27.0-33.4); MEAN CORPUSCULAR HGB CONC 32.5 g/dL (32.0-36.0); MEAN CORPUSCULAR VOLUME 79 fl (80-97); MONOCYTES % (AUTO) 6.9 % (3-13); PLATELET COUNT 286 10^3/uL (150-450); RED BLOOD COUNT 4.11 10^6/uL (3.72-5.28); RED CELL DISTRIBUTION WIDTH 14.6 % (11.5-14.0); SEGMENTED NEUTROPHILS % (AUTO) 80.7 % (42-78); TOTAL CELLS COUNTED % (AUTO) 100 %; WHITE BLOOD COUNT 16.5 10^3/uL (4.0-10.5)
[2017-09-23 12:33] LABS: URINE AMPHETAMINES SCREEN NEGATIVE; URINE BARBITURATES SCREEN NEGATIVE; URINE BENZODIAZEPINES SCREEN NEGATIVE; URINE COCAINE SCREEN NEGATIVE; URINE MARIJUANA (THC) SCREEN NEGATIVE; URINE METHADONE SCREEN NEGATIVE; URINE PHENCYCLIDINE SCREEN NEGATIVE
[2017-09-23 12:35] LABS: UR PRO/CREAT RATIO RESULT 0.1 mg/mg (0.0-0.2); URINE CREATININE 87.4 mg/dL (16-327); URINE PROTEIN 10.5 mg/dL (<12)
[2017-09-23 12:49] LABS: ALANINE AMINOTRANSFERASE 24 U/L (9-52); ALBUMIN 3.7 g/dL (3.5-5.0); ALKALINE PHOSPHATASE 106 U/L (38-126); ANION GAP 9 (5-19); ASPARTATE AMINO TRANSFERASE 17 U/L (14-36); BILIRUBIN,DIRECT 0.3 mg/dL (0.0-0.4); BILIRUBIN,TOTAL 0.4 mg/dL (0.2-1.3); BLOOD UREA NITROGEN 6 mg/dL (7-20); CALCIUM 9.3 mg/dL (8.4-10.2); CARBON DIOXIDE 21 mmol/L (22-30); CHLORIDE 107 mmol/L (98-107); GLUCOSE 69 mg/dL (75-110); LDH 435 U/L (313-618); POTASSIUM 4.4 mmol/L (3.6-5.0); SODIUM 137.3 mmol/L (137-145); TOTAL PROTEIN 6.7 g/dL (6.3-8.2)
--- NOTE | 2017-09-23 13:22 | Non Stress Test Report ---
Non Stress Test Datetime Report Generated by CPN: 09/23/2017 13:22 DEMOGRAPHIC EGA NST: 36.2 INDICATION Indication for Study: Ordered by Provider MONITORING Monitor Explained: Monitor Explained; Test Explained; Patient Verbalized Understanding Time on Monitor: 09/23/2017 11:57 Time off Monitor: 09/23/2017 13:04 NST Duration: 67 NST INTERVENTIONS NST Interventions: PO Hydration; Reposition Patient Physician Notified NST: H.Zafar, CNM BABY A: [id number] BABY A Movement : Present Contraction Frequency : 2.5-3 FHR Baseline : 140 Accelerations : 15X15 Decelerations : None Variability : Moderate 6-25bpm NST Review: Meets Criteria for Reactive NST NST Review and Verified By : MICHAEL Carrero Results: Reactive NST REPORT Report Trigger: Send Report
== END 2017-09-23 13:17 | disposition home or self-care (01) ==
LOC: LC 11:45
PROVIDERS: ATTEND Student in an Organized Health Care Education/Training Program
PROC: 4A1HXCZ Monitoring of Products of Conception, Cardiac Rate, External Approach (ICD-10-PCS; principal; 2017-09-23)
DX: O47.03 False labor before 37 completed weeks of gestation, third trimester (principal); Z3A.36 36 weeks gestation of pregnancy
CPT/HCPCS: 36415; 59025; 80053; 80307; 81005; 82570; 83615; 84156; 84550; 85025

== ENCOUNTER 2017-09-26 11:32 | Outpatient (CLI) | payer OTHER ==
--- NOTE | 2017-09-26 12:27 | Non Stress Test Report ---
Non Stress Test Datetime Report Generated by CPN: 09/26/2017 12:27 DEMOGRAPHIC EGA NST: 36.5 INDICATION Indication for Study: Ordered by Provider Indication for Study (NST) Other: repeat from the office VITAL SIGNS Temperature - NST: 99.5 Pulse - NST: 123 RESP - NST: 14 NBPSYS NST: 118 NBPDIA NST: 76 MONITORING Monitor Explained: Monitor Explained; Test Explained; Patient Verbalized Understanding Time on Monitor: 09/26/2017 11:46 Time off Monitor: 09/26/2017 12:17 NST Duration: 31 NST INTERVENTIONS NST Interventions: PO Hydration; Reposition Patient Physician Notified NST: Roscoe Walker, CNM BABY A: [id number] BABY A Movement : Present Contraction Frequency : 2-8 FHR Baseline : 145 Accelerations : 15X15 Decelerations : None Variability : Moderate 6-25bpm NST Review: Meets Criteria for Reactive NST NST Review and Verified By : MICHAEL Thomas Results: Reactive NST REPORT Report Trigger: Send Report
== END 2017-09-26 12:20 | disposition home or self-care (01) ==
LOC: LC 11:32
PROVIDERS: ATTEND Obstetrics & Gynecology
PROC: 4A1HXCZ Monitoring of Products of Conception, Cardiac Rate, External Approach (ICD-10-PCS; principal; 2017-09-26)
DX: Z34.93 Encounter for supervision of normal pregnancy, unspecified, third trimester (principal)
CPT/HCPCS: 59025

== ENCOUNTER 2017-09-29 06:07 | Inpatient (IN) | payer OTHER ==
[2017-09-29] MEDS ORDERED: OXYTOCIN/NORMAL SALINE 20 UNIT/1,000 ML RTUINJ IV PRN ×2 (06:11→16:26)
[2017-09-29] MEDS ORDERED: DINOPROSTONE 10 MG VAGINAL INSERT.SR PV PRN (06:11)
[2017-09-29] MEDS ORDERED: RINGERS SOLUTION,LACTATED 300 ML IV ONE (06:11)
[2017-09-29 06:42] LABS: HEMATOCRIT 28.9 % (36.0-47.0); HEMOGLOBIN 9.7 g/dL (12.0-15.5); MEAN CORPUSCULAR HEMOGLOBIN 26.2 pg (27.0-33.4); MEAN CORPUSCULAR HGB CONC 33.6 g/dL (32.0-36.0); MEAN CORPUSCULAR VOLUME 78 fl (80-97); PLATELET COUNT 255 10^3/uL (150-450); RED CELL DISTRIBUTION WIDTH 14.9 % (11.5-14.0); WHITE BLOOD COUNT 15.3 10^3/uL (4.0-10.5)
[2017-09-29] MEDS ORDERED: MISOPROSTOL 0.2 MG TABLET ONE ×2 (06:55→15:23)
[2017-09-29] MEDS ORDERED: OXYTOCIN/NORMAL SALINE 20 UNIT/1,000 ML RTUINJ ONE (06:55)
[2017-09-29] MEDS ORDERED: LIDOCAINE 1% INJ-PF (10 MG/ML) 30 ML SDV ONE (06:55)
[2017-09-29 06:57] LABS: AMORPHOUS SEDIMENT,URINE TRACE /HPF; APPEARANCE,URINE SLIGHTLY-CLOUDY; BILIRUBIN,URINE NEGATIVE (NEGATIVE); COLOR,URINE YELLOW; GLUCOSE, URINE NEGATIVE (NEGATIVE); KETONES,URINE NEGATIVE (NEGATIVE); LEUKOCYTE ESTERASE,URINE SMALL (NEGATIVE); NITRITE,URINE NEGATIVE (NEGATIVE); PROTEIN,URINE NEGATIVE (NEGATIVE); URINE SPECIFIC GRAVITY 1.018; UROBILINOGEN,URINE NEGATIVE mg/dL (<2.0)
[2017-09-29 07:11] LABS: ALANINE AMINOTRANSFERASE 17 U/L (9-52); ALBUMIN 3.2 g/dL (3.5-5.0); ALKALINE PHOSPHATASE 97 U/L (38-126); ANION GAP 9 (5-19); ASPARTATE AMINO TRANSFERASE 18 U/L (14-36); BILIRUBIN,DIRECT 0.3 mg/dL (0.0-0.4); BILIRUBIN,TOTAL 0.3 mg/dL (0.2-1.3); BLOOD UREA NITROGEN 9 mg/dL (7-20); CARBON DIOXIDE 20 mmol/L (22-30); CHLORIDE 111 mmol/L (98-107); GLUCOSE 76 mg/dL (75-110); POTASSIUM 4.1 mmol/L (3.6-5.0); SODIUM 140.3 mmol/L (137-145); URIC ACID 4.1 mg/dL (2.5-6.2)
[2017-09-29 07:16] LABS: URINE AMPHETAMINES SCREEN NEGATIVE; URINE BARBITURATES SCREEN NEGATIVE; URINE BENZODIAZEPINES SCREEN NEGATIVE; URINE COCAINE SCREEN NEGATIVE; URINE MARIJUANA (THC) SCREEN NEGATIVE; URINE METHADONE SCREEN NEGATIVE; URINE PHENCYCLIDINE SCREEN NEGATIVE
[2017-09-29 07:21] LABS: ABSOLUTE LYMPHOCYTES# (MANUAL) 3.2 10^3/uL (0.5-4.7); ABSOLUTE MONOCYTES # (MANUAL) 0.9 10^3/uL (0.1-1.4); BASOPHILS % (MANUAL) 0 % (0-2); EOSINOPHILS % (MANUAL) 1 % (0-6); LYMPHOCYTES % (MANUAL) 21 % (13-45); METAMYELOCYTES % (MANUAL) 2 % (0); MONOCYTES % (MANUAL) 6 % (3-13); MYELOCYTES % (MANUAL) 1 % (0); SEGMENTED NEUTROPHILS % (MAN) 69 % (42-78); TOTAL CELLS COUNTED 100
[2017-09-29 07:22] LABS: HYPOCHROMASIA SLIGHT; PLATELET COMMENT ADEQUATE; POLYCHROMASIA SLIGHT; TOXIC GRANULATION SLIGHT
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
[2017-09-29] MEDS: RINGERS SOLUTION,LACTATED 1,000 ML IV PRN ×3 (08:13→13:51)
--- NOTE | 2017-09-29 11:06 | L&D Progress Notes ---
PROGRESS NOTES Datetime Report Generated by CPN: 09/29/2017 11:05 PROGRESS NOTE Impression Other: IUP @ [id number] Procedures: Artificial ROM; Sterile Vag Exam Plan: Continue Present Management Informed Consent Obtained: Vaginal Delivery; Induction of Labor; Risks, Benefits and Alternatives Discussed Informed Consent Obtained: Risks, Benefits and Alternatives Discussed Vital Signs : Reviewed; Within Normal Limits Comment: S: pt. crampy with contractions, desires epidural for pain control but not at this time O: VSS, pit @ 10mu/min, cervix as stated A: IUP @ 37w1d IOL-stable progressing AROM-Poly- very large amount of clear fluid performed with FSE and slowly. Tolerated well by baby and mother P: continue IOL, epidural prn. Will reassesed as clinically indicated or earlier prn. VAGINAL EXAM Dilatation: 2 Effacement: 50 Station: -3 MEMBRANES Pooling: Negative Membranes: Ruptured Membranes: Intact Amniotic Fluid Color: Clear FETUS A Monitoring: External US Variability: Moderate 6-25bpm : 37.1 Estimated Weight (gm): 3000 Presentation: Vertex Presentation: Vertex SIGNATURE SIGNATURE: 10,[id number];14,[id number];13,[id number] SIGNATURE: 13,6422120008;14,[id number] SIGNATURE: 14,4925422063;13,1526176073 SIGNATURE: 13,5340068820;14,[id number] SIGNATURE: 14,3610858096;13,[id number] SIGNATURE: 13,1413463473;14,[id number] SIGNATURE: 14,2882230990;13,[id number] SIGNATURE: 13,[id number] Assignment: Mary Jo Tao MD Signature: with User ID: [email or web address] : with User ID: [email or web address]
[2017-09-29] MEDS ORDERED: BUPIVACAINE HCL 0.25 % INJ/PF (2.5 MG/1 ML) 30 ML VIAL ONE (11:58)
[2017-09-29] MEDS ORDERED: FENTANYL/BUPIVACAINE/NS/PF 300 MCG/150 ML RTUINJ EPI ONE (11:58)
[2017-09-29] MEDS ORDERED: EPHEDRINE SULFATE INJ 50 MG/1 ML AMPULE ONE (11:58)
[2017-09-29 13:40] LABS: PATH REVIEW PATHOLOGIST REVIEWED
--- NOTE | 2017-09-29 16:16 | Warning Signs in Babies ---
VOD Warning Signs Datetime Report Generated by CPN: 09/29/2017 16:16 VOD#[id number] -Warning Signs in Babies: Viewed with Parent(s)/Family (09/29/2017 16:15:Chantelle Francois RN)
[2017-09-29] MEDS ORDERED: BENZOCAINE/MENTHOL AEROSOL SPRAY 56 ML TOP PRN (16:26)
[2017-09-29] MEDS ORDERED: PSEUDOEPHEDRINE HCL 30 MG TABLET PO PRN (16:26)
[2017-09-29] MEDS ORDERED: MAGNESIUM HYDROXIDE SUSP 30 ML UDCUP PO PRN (16:26)
[2017-09-29] MEDS ORDERED: DIPHENHYDRAMINE HCL 25 MG CAPSULE PO PRN (16:26)
[2017-09-29] MEDS ORDERED: PROMETHAZINE HCL INJ 25 MG/1 ML VIAL IV PRN (16:26)
[2017-09-29] MEDS ORDERED: GLYCERIN/WITCH HAZEL LEAF 1 EACH MED..PAD TP PRN (16:26)
[2017-09-29] MEDS ORDERED: ACETAMINOPHEN 650 MG SUPP.RECT PR PRN (16:26)
[2017-09-29] MEDS ORDERED: NA PHOS,M-B/NA PHOS,DI-BA (ADULT) 133 ML ENEMA PR PRN (16:26)
[2017-09-29] MEDS ORDERED: ACETAMINOPHEN 325 MG TABLET PO PRN (16:26)
[2017-09-29] MEDS ORDERED: DIBUCAINE 1% OINTMENT 28 GM TP PRN (16:26)
[2017-09-29] MEDS ORDERED: PROMETHAZINE HCL 25 MG TABLET PO PRN (16:26)
[2017-09-29] MEDS ORDERED: DIPH/PERTUSS(ACELL)/TETANUS VAC/PF 0.5 ML SYR (>=10YO) IM PRN (16:26)
[2017-09-29] MEDS ORDERED: PROMETHAZINE HCL 25 MG SUPP.RECT PR PRN (16:26)
[2017-09-29] MEDS ORDERED: MEASLES,MUMPS&RUBELLA VACC/PF 0.5 ML VIAL SUBCUT PRN (16:26)
[2017-09-29] MEDS: DOCUSATE SODIUM 100 MG CAPSULE PO SCH (20:25)
[2017-09-29] MEDS: FERROUS SULFATE 325 MG TABLET PO SCH (20:25)
[2017-09-29] MEDS: IBUPROFEN 800 MG TABLET PO SCH (21:18)
[2017-09-29] MEDS: FAMOTIDINE 20 MG TABLET PO SCH (21:19)
[2017-09-30] MEDS: ACETAMINOPHEN WITH CODEINE #3 TABLET PO PRN ×2 (00:20→11:53)
[2017-09-30] MEDS: IBUPROFEN 800 MG TABLET PO SCH ×3 (05:01→22:14)
--- NOTE | 2017-09-30 09:08 | PDOC PROGRESS REPORT ---
Subjective-OB Progress Note for:: 09/30/17 Subjective: Doing well, no c/o, OOB, voiding, eating well Physical Exam (OB) Vital Signs: Temp Pulse Resp BP Pulse Ox 98.0 F 82 15 104/69 100 09/30/17 08:43 09/30/17 08:43 09/30/17 08:43 09/30/17 08:43 09/30/17 08:43 Intake & Output 09/29/17 09/30/17 10/01/17 06:59 06:59 06:59 Weight 87.5 kg - PIH/Pre-Eclampsia DTR's: 2 + Clonus: Negative Headache: Absent Epigastric Pain: No Visual Changes: No - Lochia Lochia Amount: Small 10-25 ml Lochia Color: Serosa/Brown - Abdomen Description: Soft, Round Hernia Present: No Fundal Description: Firm Fundal Height: u/u - u/2 Objective-Diagnostic Laboratory: 09/29/17 06:25 09/29/17 06:25 Assessment and Plan(PN) - Assessment and Plan (1) Vaginal delivery Is this a current diagnosis for this admission?: Yes (2) Pre-eclampsia Qualifiers: Trimester: second trimester Qualified Code(s): O14.92 - Unspecified pre- eclampsia, second trimester Is this a current diagnosis for this admission?: Yes (3) Personal history of supraventricular tachycardia Is this a current diagnosis for this admission?: Yes - Time Spent with Patient Time with patient: Less than 15 minutes Medications reviewed and adjusted accordingly: Yes - Disposition Anticipated Discharge: Home Within: within 48 hours
[2017-09-30] MEDS: FERROUS SULFATE 325 MG TABLET PO SCH ×2 (09:55→18:44)
[2017-09-30] MEDS: SENNOSIDES/DOCUSATE 8.6-50 MG 1 EACH TABLET PO SCH (09:55)
[2017-09-30] MEDS: FAMOTIDINE 20 MG TABLET PO SCH ×2 (09:55→22:15)
[2017-09-30] MEDS: PRENATAL VITAMIN W DHA CAPSULE PO SCH (09:56)
[2017-09-30] MEDS: DOCUSATE SODIUM 100 MG CAPSULE PO SCH ×2 (09:56→18:44)
[2017-09-30 15:49] LABS: HEMATOCRIT 26.8 % (36.0-47.0); HEMOGLOBIN 8.8 g/dL (12.0-15.5); MEAN CORPUSCULAR HEMOGLOBIN 25.7 pg (27.0-33.4); MEAN CORPUSCULAR HGB CONC 32.6 g/dL (32.0-36.0); MEAN CORPUSCULAR VOLUME 79 fl (80-97); PLATELET COUNT 248 10^3/uL (150-450); RED BLOOD COUNT 3.41 10^6/uL (3.72-5.28); WHITE BLOOD COUNT 12.2 10^3/uL (4.0-10.5)
[2017-10-01] MEDS: IBUPROFEN 800 MG TABLET PO SCH (05:31)
[2017-10-01] MEDS: SENNOSIDES/DOCUSATE 8.6-50 MG 1 EACH TABLET PO SCH (09:58)
[2017-10-01] MEDS: FAMOTIDINE 20 MG TABLET PO SCH (09:58)
[2017-10-01] MEDS: PRENATAL VITAMIN W DHA CAPSULE PO SCH (09:58)
[2017-10-01] MEDS: FERROUS SULFATE 325 MG TABLET PO SCH (09:58)
[2017-10-01] MEDS: DOCUSATE SODIUM 100 MG CAPSULE PO SCH (09:59)
--- NOTE | 2017-10-01 10:06 | PDOC DISCHARGE SUMMARY ---
Final Diagnosis Discharge Date: 10/01/17 - Final Diagnosis (1) Pre-eclampsia Is this a current diagnosis for this admission?: Yes (2) Vaginal delivery Is this a current diagnosis for this admission?: Yes Discharge Data - Discharge Medication Home Medications: Vit,Calc76/Iron/Folic [Pnv 29-1 Tablet] 1 tab PO DAILY 03/19/16 Propranolol HCl 60 mg PO DAILY 04/16/16 Aspirin [Aspirin 81 mg Chewable Tablet] 81 mg PO DAILY 06/27/17 Promethazine HCl [Phenergan 25 mg Tablet] 1 tab PO PRN PRN 08/26/17 Butalb/Acetaminophen/Caffeine [Fioricet 50-300-40 mg Capsule] 1 cap PO PRN PRN 09/23/17 Reason(s) for Admission: Induction of Labor Procedures: NST Intrapartum Procedure(s): Spontaneous Vaginal Delivery Complication(s): Laceration-Vaginal Laceration-Degree: 1st - Diagnosis Test Laboratory: Temp Pulse Resp BP Pulse Ox 98.3 F 78 18 115/68 98 10/01/17 07:34 10/01/17 07:34 09/30/17 23:51 10/01/17 07:34 10/01/17 07:34 09/29/17 09/29/17 09/30/17 06:11 06:25 15:44 RBC 3.70 L 3.41 L Hgb 9.7 L 8.8 L Hct 28.9 L 26.8 L Urine Opiates Screen NEGATIVE - Discharge information/Instructions Discharge Activity: Balance Activity w/Rest, Pelvic Rest, Slowly Increase Activity Discharge Diet: Regular Disposition: HOME, SELF-CARE Follow up with: [facility] in: 3, Weeks
[2017-10-01 11:24] VITALS: BP 104/69
--- NOTE | 2017-10-21 12:43 | Delivery Summary ---
Del Sum A-C Datetime Report Generated by CPN: 10/21/2017 12:42 DELIVERY PERSONNEL DELIVERY PERSONNEL: [id number] Delivery Doctor:: Kate Godinez CNM Labor and Delivery Nurse:: Chantelle Francois RNspring repairer helper hand Nurse:: Jennifer Ingram RN Nursery Nurse:: Madhavi Munson RN Plant Changer/CHEMICAL RESEARCH ENGINEER: Lyndsey Cary, DYE WEIGHER Plant Changer/CHEMICAL RESEARCH ENGINEER: M [place], ST MATERNAL INFORMATION Delivery Anesthesia: Epidural Medications After Delivery: Pitocin Bolus-Please Comment; Pitocin Drip 20 Units/1000ml NSS Maternal Complications: Other Complication Details: PRE-ECLAMPSIA; POLYHYDRAMNIOS; MATERNAL TACHYCARDIA Provider Comments: Pt. with strong urge to push and found to be c/c/+2. Began pushing and quickly delivered a viable baby girl. Baby with strong respiratory effort at , placed on maternal abdomen-short cord noted. Cord allowed to stop pulsating then clamped x2 and cut by mother. Placenta delivered spontaneously intact (3vc noted). Fundus firm at U-2, bleeding stable. Mother and baby skin to skin and bonding at this time. LABOR SUMMARY EDC: 10/19/2017 00:00 No. Babies in Womb: 1 Attempted: No Labor Anesthesia: Epidural LABOR INFORMATION Reason for Induction: Pre-Eclampsia; Polyhydramnios; Other Reason for Induction- Other: MATERNAL TACHYCARDIA Onset of Labor: 09/29/2017 10:34 Complete Dilatation: 09/29/2017 15:50 Oxytocin: Induction Group B Beta Strep: 1 NO GROUP B STREPTOCOCCUS RECOVERED Antibiotics # of Doses: 0 Steroids Given: None Reason Steroids Not Administered: Not Applicable MEMBRANES Membranes Rupture Method: Artificial Rupture of Membranes: 09/29/2017 10:34 Length of Rupture (hr): 5.40 Amniotic Fluid Color: Clear Amniotic Fluid Amount: Large Amniotic Fluid Odor: Normal STAGES OF LABOR Stage 1 hr: 5 Stage 1 min: 16 Stage 2 hr: 0 Stage 2 min: 8 Stage 3 hr: 0 Stage 3 min: 6 Total Time in Labor hr: 5 Total Time in Labor min: 30 VAGINAL DELIVERY Episiotomy: None Laceration #1: None Laceration Extension #1: N/A Other Laceration: superficial PERIURETHRAL ABRASION Laceration Repair: Not Applicable Laceration Repair Note: hemostatic Sponge Count Correct: N/A Sharps Count Correct: N/A CSECTION DELIVERY Primary Indication: N/A Secondary Indication: N/A CSection Incidence: N/A Labor: N/A Elective: N/A CSection Incision: N/A BABY A INFORMATION Delivery Date/Time: 09/29/2017 15:58 Method of Delivery: Vaginal Method of Delivery: Vaginal Born in Route : No : N/A Forceps: N/A Vacuum Extraction: N/A Shoulder Dystocia : No PRESENTATION/POSITION BABY A Presentation: Cephalic Cephalic Presentation: Vertex Vertex Position: OA Breech Presentation: N/A PLACENTA INFORMATION BABY A Placenta Delivery Time : 09/29/2017 16:04 Placenta Method of Delivery: Spontaneous Placenta Method of Delivery: Spontaneous Placenta Status: Delivered SCORES BABY A Heart Rate 1 min: >100 bpm Resp Effort 1 min: Good Cry Reflex Irritability 1 min: Cough or Sneeze or Pulls Away Muscle Tone 1 min: Active Motion Color 1 min: Blue/Pale Resuscitation Effort 1 min: Tactile Stimulation SCORE 1 MIN: 8 Heart Rate 5 min: >100 bpm Resp Effort 5 min: Good Cry Reflex Irritability 5 min: Cough or Sneeze or Pulls Away Muscle Tone 5 min: Active Motion Color 5 min: Body [place], Extremities Blue Resuscitation Effort 5 min: Tactile Stimulation SCORE 5 MIN: 9 INFANT INFORMATION BABY A Gestational Age at Delivery: 37.1 Gestational Status: Early Term- 37- 38.6 Weeks Outcome : Liveborn Infant Condition : Stable Sex: Female Infant Sex: Female IDENTIFICATION BABY A Infant Verification Date/Time: 09/29/2017 16:24 ID Band Number: [id number] Mother's Name Verified: Yes Infant RN Verifying Infant: J Field RN, R Alessandro RN WEIGHT/LENGTH BABY A Birthweight (gm): 3010 Infant Weight (lb): 6 Weight (oz): 10 Length (in): 19.00 Infant Length (cm): 48.26 CORD INFORMATION BABY A No. Cord Vessels: 3 Nuchal Cord : N/A Cord Blood Taken: Yes-For Eval (Mom's Blood Type - or O+) Infant Suction: None ASSESSMENT BABY A Complications: Multiple Late Decels; Other Complications- Other: SHORT CORD Physical Findings at Delivery: Within Normal Limits Respirations: Appears Normal Skin to Skin: Yes Skin to Skin: Yes Project Structural Engineer/ALS Called : No Care By: Ulises MUNSON RN Transferred To: Remains with Mother BABY B INFORMATION : N/A SIGNATURES Assignment: Mary Jo Tao MD Signature: with User ID: Ranjith : with User ID: [email or web address]
== END 2017-10-01 12:10 | disposition home or self-care (01) | DRG 774 ==
LOC: LR 06:07 → 2S 18:24
PROVIDERS: ADMIT Obstetrics & Gynecology; ATTEND Obstetrics & Gynecology
PROC: 10E0XZZ Delivery of Products of Conception, External Approach (ICD-10-PCS; principal; 2017-09-29)
PROC: 4A1HXCZ Monitoring of Products of Conception, Cardiac Rate, External Approach (ICD-10-PCS; 2017-09-29)
DX: O11.4 Pre-existing hypertension with pre-eclampsia, complicating childbirth (principal); O10.02 Pre-existing essential hypertension complicating childbirth; I47.1 Supraventricular tachycardia; O70.0 First degree perineal laceration during delivery; O76 Abnormality in fetal heart rate and rhythm complicating labor and delivery; O69.3XX0 Labor and delivery complicated by short cord, not applicable or unspecified; O99.42 Diseases of the circulatory system complicating childbirth; O40.3XX0 Polyhydramnios, third trimester, not applicable or unspecified; O99.284 Endocrine, nutritional and metabolic diseases complicating childbirth; E04.1 Nontoxic single thyroid nodule; Z3A.37 37 weeks gestation of pregnancy; Z37.0 Single live birth
CPT/HCPCS: 36415; 80053; 80307; 81001; 84550; 85025; 85027; 86592; 86850; 86900; 86901; J2590; J3010; J3490

== ENCOUNTER 2018-01-08 05:35 | Day surgery (SDC) | payer OTHER ==
[2018-01-06 11:51] LABS: HEMATOCRIT 39.5 % (36.0-47.0); HEMOGLOBIN 13.3 g/dL (12.0-15.5); MEAN CORPUSCULAR HEMOGLOBIN 26.7 pg (27.0-33.4); MEAN CORPUSCULAR HGB CONC 33.5 g/dL (32.0-36.0); MEAN CORPUSCULAR VOLUME 80 fl (80-97); PLATELET COUNT 196 10^3/uL (150-450); RED BLOOD COUNT 4.96 10^6/uL (3.72-5.28); RED CELL DISTRIBUTION WIDTH 18.4 % (11.5-14.0); WHITE BLOOD COUNT 4.4 10^3/uL (4.0-10.5)
[2018-01-06 12:06] LABS: APPEARANCE,URINE CLEAR; BILIRUBIN,URINE NEGATIVE (NEGATIVE); COLOR,URINE STRAW; GLUCOSE, URINE NEGATIVE (NEGATIVE); KETONES,URINE NEGATIVE (NEGATIVE); LEUKOCYTE ESTERASE,URINE TRACE (NEGATIVE); NITRITE,URINE NEGATIVE (NEGATIVE); PROTEIN,URINE NEGATIVE (NEGATIVE); URINE SPECIFIC GRAVITY 1.006; UROBILINOGEN,URINE NEGATIVE mg/dL (<2.0)
[~2018-01-08 05:35] MED LIST: LACTATED RINGERS 1000 ML IV PRN; LIDOCAINE 0.5% INJ-PF (5 MG/ML) 50 ML SDV SUBCUT PRN
[2018-01-08] MEDS ORDERED: MIDAZOLAM 2 MG/2 ML INJ ONE (06:53)
[2018-01-08] MEDS ORDERED: PROPOFOL INJ 200 MG/20 ML VIAL IV ONE (06:53)
[2018-01-08] MEDS ORDERED: DEXAMETHASONE SOD PHOSPHATE INJ 4 MG/1 ML VIAL ONE (06:53)
[2018-01-08] MEDS ORDERED: ONDANSETRON HCL INJ/PF 4 MG/2 ML SDV ONE (06:53)
[2018-01-08] MEDS ORDERED: ACETAMINOPHEN 1,000 MG/100 ML RTUPB IV ONE (06:53)
[2018-01-08] MEDS ORDERED: FENTANYL CITRATE INJ/PF 100 MCG/2 ML AMPUL ONE (06:53)
[2018-01-08] MEDS ORDERED: KETOROLAC TROMETHAMINE 60 MG/2 ML SDV ONE (06:53)
[2018-01-08] MEDS ORDERED: LIDOCAINE 2% INJ-PF (20 MG/ML) 10 ML AMPUL ONE (07:14)
[2018-01-08] MEDS ORDERED: SCOPOLAMINE HYDROBROMIDE 1.5 MG PATCH.TD72 ONE (07:25)
[2018-01-08] MEDS ORDERED: DIPHENHYDRAMINE HCL 50 MG/ML VIAL IV PRN (08:07)
[2018-01-08] MEDS ORDERED: MORPHINE SULFATE 10 MG/ML INJ IV PRN (08:07)
[2018-01-08] MEDS ORDERED: MEPERIDINE HCL/PF INJ 25 MG/1 ML DISP.SYRIN IV PRN (08:07)
[2018-01-08] MEDS ORDERED: PROMETHAZINE HCL INJ 25 MG/1 ML VIAL IV PRN ×2 (08:07)
[2018-01-08] MEDS ORDERED: OXYCODONE-ACETAMINOPHEN 5-325 MG TABLET PO PRN ×4 (08:07→08:57)
[2018-01-08] MEDS ORDERED: FENTANYL CITRATE INJ/PF 100 MCG/2 ML AMPUL IV PRN ×3 (08:07)
[2018-01-08] MEDS ORDERED: LIDOCAINE 1% INJ-PF (10 MG/ML) 30 ML SDV ONE (08:18)
[2018-01-08] MEDS ORDERED: PROMETHAZINE HCL INJ 25 MG/1 ML VIAL ONE (08:33)
[2018-01-08] MEDS: FENTANYL CITRATE INJ/PF 100 MCG/2 ML AMPUL ONE ×2 (08:33→08:38)
[2018-01-08] MEDS ORDERED: RINGERS SOLUTION,LACTATED 1,000 ML IV PRN (08:47)
[2018-01-08] MEDS ORDERED: MORPHINE SULFATE 10 MG/ML INJ IM PRN (08:56)
--- NOTE | 2018-01-08 08:56 | OPERATIVE REPORT E ---
Operative Report NAME: KYLE HOOVER : 1995 AGE: 22Y DATE OF SURGERY: 01/08/2018 ROOM: PREOPERATIVE DIAGNOSIS: Undesired fertility. POSTOPERATIVE DIAGNOSIS: Undesired fertility. OPERATION: Laparoscopic tubal cauterization. SURGEON: HANNY COLIN M.D. ANESTHESIA: Dr. Flood with general. FINDINGS: Normal uterus, tubes, and ovaries. COMPLICATIONS: None. ESTIMATED BLOOD LOSS: 10 mL. TISSUE REMOVED: None. PROCEDURE IN DETAIL: The patient was taken to the operating room, prepared, and draped in a normal sterile fashion in the dorsal lithotomy position under sterile condition. In-and-out cath was performed of approximately 50 mL of clear urine. A sterile speculum was placed in the vagina and the cervix was grasped on the anterior lip with a single-tooth tenaculum and prepped with Betadine. The uterus was then sounded to approximately 8 cm and a Hulka clamp was placed through the cervix for uterine manipulation, and the tenaculum was removed. The sterile speculum was removed. Gloves were changed and attention was turned to the upper portion of the case where an umbilical skin incision was made with a scalpel and a Veress needle was placed through this incision. Peritoneal cavity placement was confirmed with free flow of sterile saline and entering pressure of less than 2 mmHg with the CO2 gas. The abdomen was inflated with approximately 1.5 L of CO2 gas and a 5 mm trocar was placed through this incision. The camera was introduced. The patient was placed in Trendelenburg. Under direct visualization another 5 mm port was placed in the left lower quadrant and a blunt probe was used to sweep the bowel away. The Kleppinger was then introduced and beginning with the left fallopian tube this was grasped and coagulated approximately 4 cm with good maria a for occlusion of the fallopian tube. The right fallopian tube was identified and the same procedure performed. The Kleppinger was removed. The lower trocar was removed under direct visualization with good hemostasis noted. The rest of the abdomen was surveyed and found to be normal. The abdomen was then deflated through the umbilical port. The skin was closed at both sites using 4-0 Vicryl. The patient was then injected with approximately 8 mL of lidocaine 1% with epinephrine at the injection sites for pain relief. The patient tolerated the procedure well. Sponge, lap, and needle counts were correct x2. The Hulka clamp was removed at the conclusion of the case, and the patient was taken to recovery in stable condition. DICTATING PHYSICIAN: HANNY COLIN M.D. [id number] PHY#: [id number] ID: [id number] JOB#: [id number] ACCT: [id number] cc:HANNY COLIN M.D. >
[2018-01-08] MEDS ORDERED: IBUPROFEN 800 MG TABLET PO PRN (08:58)
[2018-01-08] MEDS ORDERED: OXYCODONE-ACETAMINOPHEN 5-325 MG TABLET ONE (09:26)
[2018-01-08] MEDS ORDERED: SUCCINYLCHOLINE CHLORIDE INJ 200 MG/10 ML VIAL ONE (09:29)
[2018-01-08] MEDS ORDERED: GLYCOPYRROLATE 1 MG/5 ML SYRINGE ONE (09:29)
[2018-01-08 14:09] VITALS: BP 111/79
== END 2018-01-08 11:00 | disposition home or self-care (01) ==
LOC: OROUT 05:35
PROVIDERS: ATTEND Obstetrics & Gynecology
DX: Z30.2 Encounter for sterilization (principal); D64.9 Anemia, unspecified; E04.1 Nontoxic single thyroid nodule; Z87.891 Personal history of nicotine dependence; Z79.899 Other long term (current) drug therapy
CPT/HCPCS: 36415; 85027; 81005; 81025; 58670; J2250; J1100; J1885; J3010; J3490 ×3; J2550; J0330; J2704; J0131; 851; J2405

== ENCOUNTER 2019-08-29 23:15 | Emergency (ER) | payer OTHER ==
[2019-08-29] MEDS ORDERED: DIPHENHYDRAMINE HCL 50 MG/ML VIAL IV ONE (23:25)
[2019-08-29] MEDS ORDERED: METOCLOPRAMIDE HCL INJ/PF 10 MG/2 ML SDV IV ONE (23:25)
--- NOTE | 2019-08-29 23:27 | ER Document Report ---
ED Medical Screen (RME) - General Chief Complaint: Abdominal Pain Stated Complaint: ABDOMINAL PAIN Time Seen by Provider: 08/29/19 23:25 Primary Care Provider: GADIEL JEROME MD [Primary Care Provider] - Follow up as needed Notes: HPI: 23-year-old female presenting to the emergency department complaining of right lower quadrant pain. Pain started around the umbilicus around 2 PM. Patient states she did have nausea with 3 episodes of vomiting today. States that she did have a low-grade fever up to 100. Patient states the pain now seems to radiate into the right lower quadrant region. Pain is slightly worse with standing or walking. Patient states she did take an oxycodone at home which did not help the pain. States she recently had breast surgery 3 weeks ago but is not having any chest pain or shortness of breath. She did call her PCP prior to coming to the emergency department. Patient does have a history of ovarian cyst states this does not feel like an ovarian cyst. There is no personal history of kidney stones but patient states her father had kidney stones PHYSICAL EXAMINATION: Mildly uncomfortable. Slight rebound tenderness in the right lower quadrant on palpation I have greeted and performed a rapid initial assessment of this patient. A comprehensive ED assessment and evaluation of the patient, analysis of test results and completion of medical decision making process will be conducted by an additional ED providers. TRAVEL OUTSIDE OF THE [place] IN LAST 30 DAYS: No - Related Data Allergies/Adverse Reactions: ondansetron [From Zofran (as hydrochloride)] Allergy (Verified 01/08/18 06:25) Increased nausea alamide Allergy (Intermediate, Uncoded 01/06/18 09:04) Unsure of reaction Past Medical History - Past Medical History Cardiac Medical History: Reports: Hx Hypertension - Intermittent, sometimes really high and sometimes really low Denies: Hx Coronary Artery Disease, Hx Heart Attack Pulmonary Medical History: Reports: Hx Asthma - As a child Denies: Hx Bronchitis, Hx COPD, Hx Pneumonia Neurological Medical History: Denies: Hx Cerebrovascular Accident, Hx Seizures Renal/ Medical History: Denies: Hx Peritoneal Dialysis Musculoskeltal Medical History: Denies Hx Arthritis - Immunizations Hx Diphtheria, Pertussis, Tetanus Vaccination: - Unsure Doctor's Discharge - Discharge Referrals: GADIEL JEROME MD [Primary Care Provider] - Follow up as needed
[2019-08-29 23:43] LABS: APPEARANCE,URINE CLEAR; BILIRUBIN,URINE NEGATIVE (NEGATIVE); COLOR,URINE YELLOW; GLUCOSE, URINE NEGATIVE (NEGATIVE); KETONES,URINE NEGATIVE (NEGATIVE); LEUKOCYTE ESTERASE,URINE NEGATIVE (NEGATIVE); NITRITE,URINE NEGATIVE (NEGATIVE); PROTEIN,URINE NEGATIVE (NEGATIVE); URINE SPECIFIC GRAVITY 1.026; UROBILINOGEN,URINE NEGATIVE mg/dL (<2.0)
[2019-08-29] MEDS ORDERED: MORPHINE SULFATE 10 MG/ML INJ IV ONE (23:45)
[2019-08-29] MEDS ORDERED: NORMAL SALINE 1000 ML 1,000 ML IV ONE (23:45)
--- NOTE | 2019-08-29 23:49 | ER Document Report ---
ED GI/ - General Chief Complaint: Abdominal Pain Stated Complaint: ABDOMINAL PAIN Time Seen by Provider: 08/29/19 23:25 Primary Care Provider: GADIEL JEROME MD [Primary Care Provider] - Follow up as needed Mode of Arrival: Ambulatory Information source: Patient Notes: Otherwise healthy 23-year-old female presenting to the emergency department with chief complaint of abdominal pain that began at 2:00 this afternoon. Patient reports the pain feels like a sharp stabbing pain that started in the middle of her abdomen and has now moved to the right lower quadrant. Patient reports associated nausea with vomiting and fever of 100 earlier this evening. Patient reports pain has been persistent since it started and has began to worsen. She has also had no appetite since the pain started. She states that she has increased pain with movement, walking, coughing. She tried taking ibuprofen as well as a Percocet for the pain without relief. She recently had a breast augmentation done 3 weeks ago. She reports she is healing fine from that and has had no complications. She also recently finished a course of antibiotics she believes it was cephalexin in association with her breast augmentation. Her last meal was at noon today, she states that she had a sip of water as well on the way to the hospital. TRAVEL OUTSIDE OF THE [place] IN LAST 30 DAYS: No - Related Data Allergies/Adverse Reactions: ondansetron [From Zofran (as hydrochloride)] Allergy (Verified 01/08/18 06:25) Increased nausea alamide Allergy (Intermediate, Uncoded 01/06/18 09:04) Unsure of reaction Home Medications: PROPRANOLOL Past Medical History - General Information source: Patient - Social History Smoking Status: Current Every Day Smoker Frequency of alcohol use: None Drug Abuse: None Family History: Reviewed & Not Pertinent Patient has homicidal ideation: No - Past Medical History Cardiac Medical History: Reports: Hx Hypertension - Intermittent, sometimes really high and sometimes really low Denies: Hx Coronary Artery Disease, Hx Heart Attack Pulmonary Medical History: Reports: Hx Asthma - As a child Denies: Hx Bronchitis, Hx COPD, Hx Pneumonia Neurological Medical History: Denies: Hx Cerebrovascular Accident, Hx Seizures Renal/ Medical History: Denies: Hx Peritoneal Dialysis Musculoskeletal Medical History: Denies Hx Arthritis Past Surgical History: Reports: Hx Breast Surgery - August 2019, Hx Tubal Ligation - Immunizations Immunizations up to date: Yes Hx Diphtheria, Pertussis, Tetanus Vaccination: - Unsure Review of Systems - Review of Systems Constitutional: Fever Gastrointestinal: Abdominal pain, Nausea, Vomiting, Poor appetite Genitourinary: denies: Burning, Dysuria, Flank pain Female Genitourinary: denies: Vaginal discharge, Vaginal bleeding -: Yes All other systems reviewed and negative Physical Exam - Vital signs Vitals: Temp Pulse Resp BP Pulse Ox 98.4 F 92 16 134/86 H 98 08/29/19 23:18 08/29/19 23:18 08/29/19 23:18 08/29/19 23:18 08/29/19 23:18 - Notes Notes: PHYSICAL EXAMINATION: GENERAL: Well-appearing, well-nourished and in no acute distress. HEAD: Atraumatic, normocephalic. EYES: Pupils equal round and reactive to light, extraocular movements intact, conjunctiva are normal. ENT: Nares patent, oropharynx clear without exudates. Moist mucous membranes. NECK: Normal range of motion, supple without lymphadenopathy LUNGS: Breath sounds clear to auscultation bilaterally and equal. No wheezes r ales or rhonchi. HEART: Regular rate and rhythm without murmurs ABDOMEN: Soft, nondistended abdomen. Right lower quadrant tenderness with rebound. Positive Rovsing's sign. Female : deferred Musculoskeletal: Normal range of motion, no pitting or edema. No cyanosis. NEUROLOGICAL: Cranial nerves grossly intact. Normal speech, normal gait. Normal sensory, motor exams PSYCH: Normal mood, normal affect. SKIN: Warm, Dry, normal turgor, no rashes or lesions noted. Course - Re-evaluation Re-evalutation: 08/29/19 23:53 Patient appears well, nontoxic. Appears mildly uncomfortable. Differential diagnosis includes acute appendicitis versus ovarian cyst versus gastroenteritis. CT of the abdomen pelvis ordered with IV and oral contrast, patient will start drinking contrast now. Labs pending. 08/30/19 01:59 Patient reports pain has improved since administration of medications here in the emergency department however it has not completely gone away. Patient reports the pain is tolerable at this time. She is going to CAT scan at 0230. 08/30/19 04:02 CT abdomen pelvis was negative for acute appendicitis. Will send patient to ultrasound for transvaginal ultrasound to evaluate for ovarian cyst. - Vital Signs Vital signs: Temp Pulse Resp BP Pulse Ox 98.2 F 88 16 100/60 98 08/30/19 03:03 08/30/19 03:03 08/30/19 03:03 08/30/19 03:03 08/30/19 03:03 - Laboratory Result Diagrams: 08/30/19 00:20 08/30/19 00:20 Laboratory results interpreted by me: 08/30/19 00:20 Sodium 136.2 L ALT 37 H Discharge - Discharge Clinical Impression: Abdominal pain Qualifiers: Abdominal location: right lower quadrant Qualified Code(s): R10.31 - Right lower quadrant pain Nausea and vomiting Qualifiers: Vomiting type: unspecified Vomiting Intractability: unspecified Qualified Code(s): R11.2 - Nausea with vomiting, unspecified Condition: Stable Disposition: HOME, SELF-CARE Instructions: Abdominal Pain ([facility]), Observation for Appendicitis ([facility]) Additional Instructions: Your work-up today was reassuring. The only abnormality I found on any of your testing was some small free fluid in the pelvis. That may be flea ruptured ovarian cyst. That is likely the cause of your pain. As discussed please return if your pain worsens, you are persistently vomiting or your fever goes over 101. Take nausea medication as prescribed. Take the Toradol as pres cribed, do not take ibuprofen while taking Toradol. You may safely take your Percocet that you have at home with the Toradol. Prescriptions: Ketorolac Tromethamine [Toradol 10 mg Tablet] 10 mg PO Q6HP PRN #20 tablet PRN Reason: Promethazine HCl [Phenergan 25 mg Tablet] 1 - 2 tab PO Q6H PRN #15 tablet PRN Reason: Referrals: GADIEL JEROME MD [Primary Care Provider] - Follow up as needed
[2019-08-30 00:33] LABS: ABSOLUTE EOSINOPHILS # (AUTO) 0.2 10^3/uL (0.0-0.6); ABSOLUTE LYMPHOCYTES (AUTO) 2.4 10^3/uL (0.5-4.7); ABSOLUTE MONOCYTES (AUTO) 0.4 10^3/uL (0.1-1.4); ABSOLUTE NEUT (AUTO) 6.7 10^3/uL (1.7-8.2); BASOPHILS % (AUTO) 0.5 % (0-2); HEMATOCRIT 38.4 % (36.0-47.0); HEMOGLOBIN 13.6 g/dL (12.0-15.5); LYMPHOCYTES % (AUTO) 24.4 % (13-45); MEAN CORPUSCULAR HEMOGLOBIN 31.4 pg (27.0-33.4); MEAN CORPUSCULAR HGB CONC 35.4 g/dL (32.0-36.0); MEAN CORPUSCULAR VOLUME 89 fl (80-97); MONOCYTES % (AUTO) 4.1 % (3-13); PLATELET COUNT 246 10^3/uL (150-450); RED BLOOD COUNT 4.33 10^6/uL (3.72-5.28); RED CELL DISTRIBUTION WIDTH 12.9 % (11.5-14.0); TOTAL CELLS COUNTED % (AUTO) 100 %; WHITE BLOOD COUNT 9.7 10^3/uL (4.0-10.5)
[2019-08-30 00:56] LABS: ALBUMIN 4.2 g/dL (3.5-5.0); ALKALINE PHOSPHATASE 67 U/L (38-126); ANION GAP 5 (5-19); ASPARTATE AMINO TRANSFERASE 20 U/L (14-36); BILIRUBIN,TOTAL 0.4 mg/dL (0.2-1.3); BLOOD UREA NITROGEN 13 mg/dL (7-20); CALCIUM 9.9 mg/dL (8.4-10.2); CARBON DIOXIDE 26 mmol/L (22-30); CHLORIDE 105 mmol/L (98-107); GLUCOSE 81 mg/dL (75-110); TOTAL PROTEIN 7.2 g/dL (6.3-8.2)
[2019-08-30] MEDS ORDERED: MORPHINE SULFATE 10 MG/ML INJ IV ONE (02:40)
--- NOTE | 2019-08-30 03:27 | RADIOLOGY REPORT (SQ) ---
EXAM DESCRIPTION: CT ABDOMEN PELVIS WITH IV CONTRAST COMPLETED DATE/TME: 08/29/2019 00:00 CLINICAL HISTORY: 23 years Female, RLQ pain/vomiting/fever Comparison: None. Technique: IV and oral contrast. Coronal and sagittal reformat. This exam was performed according to our departmental dose-optimization program, which includes automated exposure control, adjustment of the mA and/or kV according to patient size and/or use of iterative reconstruction technique. [facility]: Dose Right [facility]: CareDose [facility]: Dose Right [facility]: Teradose 4D [facility]: Concentra LIMITATIONS: None Findings: Mammary prostheses. No ascites. No pneumoperitoneum. Normal appendix. No gross evidence of gallbladder inflammation, hepatobiliary obstruction, or portal vein defect. No bowel obstruction. No hydronephrosis or hydroureter. No renal/ureteral stone. No evidence of abdominal aortic aneurysm. No gross evidence of thecal sac/cord or nerve root compression. Inferior thorax, liver, gallbladder, pancreas, spleen, adrenals, renal system, gastrointestinal tract, pelvic organs, lymphatics, vasculature, and musculoskeleton appear otherwise unremarkable. IMPRESSION: No acute findings.
[2019-08-30] MEDS ORDERED: PROMETHAZINE HCL 25 MG TABLET PO ONE (05:16)
[2019-08-30] MEDS ORDERED: HYDROCODONE/ACETAMINOPHEN 5-325 MG (6 TAB/ER DISP) PO PRN (05:16)
--- NOTE | 2019-08-30 05:24 | RADIOLOGY REPORT (SQ) ---
EXAM DESCRIPTION: US PELVIS TRANSVAGINAL COMPLETED DATE/TME: 08/30/2019 03:39 CLINICAL HISTORY: 23 years Female, RLQ pain/fever/vomiting Comparison: None. Technique: Transvaginal. LIMITATIONS: None. FINDINGS: Small free pelvic fluid. Else, unremarkable. 9-cm uterus, 1.0-cm endometrial stripe thickness with a small anechoic fluid within the endometrial cavity, 5-cm right ovary including a dominant 3 x 1.2 x 1.4 cm cystic follicle within normal limits for which no follow-up is indicated, and 4-cm left ovary appear otherwise unremarkable in size, shape, echotexture, and vascularity. IMPRESSION: Small free pelvic fluid. Else, unremarkable.
[2019-08-30 05:35] VITALS: BP 104/62
== END 2019-08-30 05:36 | disposition home or self-care (01) ==
LOC: ER 23:15
DX: R10.31 Right lower quadrant pain (principal); R11.2 Nausea with vomiting, unspecified; R10.33 Periumbilical pain; F17.200 Nicotine dependence, unspecified, uncomplicated; Z98.51 Tubal ligation status
CPT/HCPCS: 96376; 99284; 96361; 96374; 96375; 36415; 83690; 85025; 81025; 80053; 81001; 76830; 93976; 74177; J1200; J2765; J2270; J7030